=== PATIENT | female | born 1965 | race Caucasian/White ===

== ENCOUNTER 2020-05-13 06:57 | Outpatient (REF) | payer OTHER, SELFPAY | END 2020-05-13 06:58 | disposition home or self-care (01) | LOC: HO.LAB 06:57 | PROVIDERS: PCP Internal Medicine; Visit Provider Internal Medicine | DX: Z20.828 Contact with and (suspected) exposure to other viral communicable diseases (principal) | CPT/HCPCS: 87635 ==

== ENCOUNTER 2020-05-20 06:26 | Outpatient (REF) | payer OTHER, SELFPAY ==
[2020-05-20 07:43] LABS: MANUAL DIFF FLAG NO
[2020-05-20 07:52] LABS: Basophils Absolute Auto 0.1 X10*3/uL (0.0-0.2); Basophils Percent Auto 1.1 % (0-2); Eosinophils Absolute Auto 0.2 X10*3/uL (0.0-0.4); Eosinophils Percent Auto 2.7 % (0-4); Hematocrit 43.8 % (37-47); Hemoglobin 14.3 g/dl (12.0-16.0); Imm Gran Abs Auto 0.01 X10*3/uL (0.00-0.03); Imm Gran Pct Auto 0.2 % (0.0-0.4); Lymphocytes Absolute Auto 1.8 X10*3/uL (1.2-4.9); Lymphocytes Percent Auto 32.5 % (20-40); Mean Corpuscular HGB Conc 32.6 g/dl (31.0-35.0); Mean Corpuscular Hemoglobin 29.1 pg (27.0-33.0); Mean Corpuscular Volume 89.2 fL (80-98); Mean Platelet Volume 10.9 fL (9.4-12.3); Monocytes Absolute Auto 0.6 X10*3/uL (0.1-1.2); Monocytes Percent Auto 11.3 % (2-11); Neutrophils Absolute Auto 2.9 X10*3/uL (2.0-8.3); Neutrophils Percent Auto 52.2 % (45-73); Platelet Count 319 X10*3/uL (160-400); Red Blood Count 4.91 X10*6/uL (4.20-5.50); Red Cell Distribution Width 13.4 % (11.0-16.0); White Blood Count 5.6 X10*3/uL (4.8-10.8)
[2020-05-20 08:19] LABS: Alanine Aminotransferase 40 U/L (0-31); Albumin Level 4.5 g/dL (3.5-5.0); Alkaline Phosphatase 89 U/L (39-117); Anion Gap 14 (12-20); Aspartate Amino Transferase 32 U/L (5-31); Bilirubin Total 0.5 mg/dL (0.0-1.0); Blood Urea Nitrogen 16 mg/dL (9-16); Calcium 9.5 mg/dL (8.4-10.2); Carbon Dioxide 29 mmol/L (22-29); Chloride 104 mmol/L (96-108); Cholesterol 223 mg/dL; Estimated Glomerular Filt Rate > 60; Glucose Fasting 102 mg/dL (60-99); HDL Cholesterol 46 mg/dL; LDL Cholesterol Calculated 135 mg/dl; Potassium 4.6 mmol/l (3.3-5.1); Sodium 142 mmol/L (135-145); Total Protein 7.3 g/dL (6.5-8.0); Triglycerides 210 mg/dL
[2020-05-20 08:40] LABS: Thyroid Stimulating Hormone 1.19 mIU/mL (0.32-4.0); Vitamin D 25-OH Total 37.5 ng/mL (>30)
== END 2020-05-20 06:27 | disposition home or self-care (01) ==
LOC: HO.LAB 06:26
PROVIDERS: PCP Internal Medicine; Visit Provider Internal Medicine
DX: Z00.01 Encounter for general adult medical examination with abnormal findings (principal); E66.09 Other obesity due to excess calories; Z68.36 Body mass index [BMI] 36.0-36.9, adult
CPT/HCPCS: 36415; 80053; 80061; 82306; 84443; 85025

== ENCOUNTER → 2020-05-31 11:19 | Outpatient (BNVA) | payer OTHER, SELFPAY | PROVIDERS: Visit Provider Obstetrics & Gynecology | DX: Z76.89 Persons encountering health services in other specified circumstances (principal) ==

== ENCOUNTER 2020-06-01 09:36 | Outpatient (REF) | payer OTHER, SELFPAY ==
[2020-06-04 07:48] LABS: HPV mRNA E6/E7 Not Detected (Not Detected)
== END 2020-06-01 09:37 | disposition home or self-care (01) ==
LOC: HO.LAB 09:36
PROVIDERS: Visit Provider Obstetrics & Gynecology
DX: Z12.4 Encounter for screening for malignant neoplasm of cervix (principal)
CPT/HCPCS: 87624; 87625; 88142

== ENCOUNTER 2020-06-15 10:26 | Outpatient (REF) | payer OTHER, SELFPAY ==
--- NOTE | 2020-06-15 10:31 | US_ITS ---
EXAMINATION: PELVIC ULTRASOUND CLINICAL INFORMATION: Postmenopausal bleeding COMPARISON: None TECHNIQUE: Transabdominal and transvaginal pelvic ultrasound was performed. Transvaginal exam was performed for better visualization of the uterus and ovaries. FINDINGS: The uterus is anteverted and measures 6.8 x 2.2 x 3.9 cm in dimension. There is a 0.8 x 0.7 x 1.2 cm hypoechoic lesion in the posterior uterine body suggestive of a fibroid. No other focal uterine lesion is seen. Endometrial thickness is normal estimated at 0.2 cm. There are nabothian cysts in the cervix. The ovaries are normal-appearing. The right ovary measures 2.3 x 1.2 x 1.4 cm and the left ovary measures 1.6 x 1.1 x 1.3 cm. There is no fluid in the pelvis. US/US transvaginal IMPRESSION: Small uterine fibroid. Normal thickness endometrium. Normal-appearing ovaries.
--- NOTE | 2020-06-15 10:31 | US_ITS ---
EXAMINATION: PELVIC ULTRASOUND CLINICAL INFORMATION: Postmenopausal bleeding COMPARISON: None TECHNIQUE: Transabdominal and transvaginal pelvic ultrasound was performed. Transvaginal exam was performed for better visualization of the uterus and ovaries. FINDINGS: The uterus is anteverted and measures 6.8 x 2.2 x 3.9 cm in dimension. There is a 0.8 x 0.7 x 1.2 cm hypoechoic lesion in the posterior uterine body suggestive of a fibroid. No other focal uterine lesion is seen. Endometrial thickness is normal estimated at 0.2 cm. There are nabothian cysts in the cervix. The ovaries are normal-appearing. The right ovary measures 2.3 x 1.2 x 1.4 cm and the left ovary measures 1.6 x 1.1 x 1.3 cm. There is no fluid in the pelvis. US/US pelvic limited IMPRESSION: Small uterine fibroid. Normal thickness endometrium. Normal-appearing ovaries.
== END 2020-06-15 10:27 | disposition home or self-care (01) ==
LOC: HO.US 10:26
PROVIDERS: Visit Provider Obstetrics & Gynecology
DX: N95.0 Postmenopausal bleeding (principal)
CPT/HCPCS: 76830; 76857

== ENCOUNTER → 2020-06-29 10:39 | Outpatient (BNVA) | payer OTHER, SELFPAY | PROVIDERS: Visit Provider Obstetrics & Gynecology | DX: Z76.89 Persons encountering health services in other specified circumstances (principal) ==

== ENCOUNTER 2020-08-05 14:02 | Outpatient (REF) | payer OTHER, SELFPAY ==
--- NOTE | 2020-08-05 14:05 | MM_ITS ---
EXAMINATION: MM SCREENING DIGITAL BREAST TOMOSYNTHESIS, BILATERAL CLINICAL INFORMATION: Screening. Asymptomatic. The lifetime risk of breast cancer based on the Tyrer-Cuzick Model is 6%. COMPARISON: Mammography: 12/24/2015, 04/22/2014 TECHNIQUE: Digital breast tomosynthesis is performed in both the craniocaudal and mediolateral oblique views along with computer-aided detection (CAD). Synthesized 2D images are generated from the tomosynthesis. Additional bilateral CC and additional bilateral MLO views are provided. FINDINGS: The breasts are almost entirely fatty (ACR BI-RADS breast composition Category a). There are no significant masses, abnormal calcifications, or other abnormalities. Background stromal densities are similar to prior study. There is no developing density or interval mass or architectural abnormality or abnormal calcifications. The axilla and skin contours are unremarkable. No significant changes. MM/MM tomosynthesis screening BI IMPRESSION: No mammographic evidence of malignancy. ASSESSMENT: BI-RADS 1: Negative RECOMMENDATION: Routine annual mammography screening. This patient's information was entered into a reminder system with a target due date for their next mammogram.
== END 2020-08-05 14:03 | disposition home or self-care (01) ==
LOC: HO.MAMMO 14:02
PROVIDERS: PCP Internal Medicine; Visit Provider Internal Medicine
DX: Z12.31 Encounter for screening mammogram for malignant neoplasm of breast (principal)
CPT/HCPCS: 77063; 77067

== ENCOUNTER 2021-02-19 07:18 | Outpatient (REF) | payer OTHER, SELFPAY ==
[2021-02-19 08:41] LABS: Alanine Aminotransferase 23 U/L (0-31); Albumin Level 4.3 g/dL (3.5-5.0); Alkaline Phosphatase 87 U/L (39-117); Aspartate Amino Transferase 25 U/L (5-31); Bilirubin Direct 0.2 mg/dL (0.0-0.5); Bilirubin Total 0.5 mg/dL (0.0-1.0); Glucose Fasting 106 mg/dL (60-99); Total Protein 7.3 g/dL (6.5-8.0)
== END 2021-02-19 07:19 | disposition home or self-care (01) ==
LOC: HO.LAB 07:18
PROVIDERS: PCP Internal Medicine; Visit Provider Internal Medicine
DX: R73.01 Impaired fasting glucose (principal); R79.89 Other specified abnormal findings of blood chemistry
CPT/HCPCS: 36415; 80076; 82947

== ENCOUNTER 2021-08-23 09:50 | Outpatient (REF) | payer OTHER, SELFPAY ==
[2021-08-23 10:50] LABS: Estimated Average Glucose 114 mg/dL; Hemoglobin A1c % 5.6 %
[2021-08-23 10:58] LABS: Alanine Aminotransferase 25 U/L (0-31); Albumin Level 4.6 g/dL (3.5-5.0); Alkaline Phosphatase 83 U/L (39-117); Anion Gap 14 (12-20); Aspartate Amino Transferase 26 U/L (5-31); Bilirubin Total 0.4 mg/dL (0.0-1.0); Blood Urea Nitrogen 15 mg/dL (9-16); Calcium 10.3 mg/dL (8.4-10.2); Carbon Dioxide 28 mmol/L (22-29); Chloride 104 mmol/L (96-108); Estimated Glomerular Filt Rate > 60; Glucose Random 101 mg/dL (60-115); Potassium 4.5 mmol/L (3.3-5.1); Sodium 141 mmol/L (135-145); Total Protein 7.8 g/dL (6.5-8.0)
[2021-08-24 14:27] LABS: LDL Cholesterol Direct 186 mg/dL (<100)
[2021-08-27 14:41] LABS: Vitamin D 25-OH, D2 <4 ng/mL; Vitamin D 25-OH, D3 38 ng/mL; Vitamin D 25-OH, Total 38 ng/mL (30-100)
== END 2021-08-23 09:51 | disposition home or self-care (01) ==
LOC: HO.LAB 09:50
PROVIDERS: PCP Internal Medicine; Visit Provider Internal Medicine
DX: Z00.01 Encounter for general adult medical examination with abnormal findings (principal); E66.09 Other obesity due to excess calories; R73.01 Impaired fasting glucose
CPT/HCPCS: 36415; 80053; 82306; 83036; 83721

== ENCOUNTER 2021-09-06 08:22 | Outpatient (REF) | payer OTHER, SELFPAY ==
--- NOTE | ~2021-09-06 | MM_ITS ---
EXAMINATION: MM SCREENING DIGITAL BREAST TOMOSYNTHESIS, BILATERAL CLINICAL INFORMATION: Screening. Asymptomatic. The lifetime risk of breast cancer based on the Tyrer-Cuzick Model is 9%. COMPARISON: Mammography 08/05/2020; outside mammography 04/12/2019 ([place]); and mammography 12/24/2015. TECHNIQUE: Digital breast tomosynthesis is performed in both the craniocaudal and mediolateral oblique views along with computer-aided detection (CAD). Synthesized 2D images are generated from the tomosynthesis. FINDINGS: The breasts are almost entirely fatty (ACR BI-RADS breast composition Category a). There is no interval mass or architectural abnormality or developing density. Background stromal markings are stable. No abnormal calcifications. The axilla and skin contours are unremarkable. No significant changes. MM/MM tomosynthesis screening BI IMPRESSION: No mammographic evidence of malignancy. ASSESSMENT: BI-RADS 1: Negative RECOMMENDATION: Routine annual mammography screening. This patient's information was entered into a reminder system with a target due date for their next mammogram.
== END 2021-09-06 08:23 | disposition home or self-care (01) ==
LOC: HO.MAMMO 08:22
PROVIDERS: PCP Internal Medicine; Visit Provider Internal Medicine
DX: Z12.31 Encounter for screening mammogram for malignant neoplasm of breast (principal)
CPT/HCPCS: 77063; 77067

== ENCOUNTER 2021-10-21 06:09 | Outpatient (REF) | payer OTHER, SELFPAY ==
[2021-10-21 07:24] LABS: Estimated Average Glucose 117 mg/dL; Hemoglobin A1C 136.8872 umol/L; Hemoglobin A1c % 5.7 %
[2021-10-21 07:45] LABS: Alanine Aminotransferase 32 U/L (0-31); Albumin Level 4.3 g/dL (3.5-5.0); Aspartate Amino Transferase 28 U/L (5-31); Bilirubin Direct 0.2 mg/dL (0.0-0.5); Bilirubin Total 0.3 mg/dL (0.0-1.0); Cholesterol 136 mg/dL; HDL Cholesterol 35 mg/dL; LDL Cholesterol Calculated 82 mg/dl; Total Protein 7.2 g/dL (6.5-8.0); Triglycerides 98 mg/dL
[2021-10-21 07:54] LABS: Alkaline Phosphatase 86 U/L (39-117)
== END 2021-10-21 06:10 | disposition home or self-care (01) ==
LOC: HO.LAB 06:09
PROVIDERS: PCP Internal Medicine; Visit Provider Internal Medicine
DX: E78.9 Disorder of lipoprotein metabolism, unspecified (principal); R73.01 Impaired fasting glucose
CPT/HCPCS: 36415; 80061; 80076; 83036

== ENCOUNTER 2022-04-05 13:56 | Outpatient (REF) | payer OTHER, SELFPAY ==
[2022-04-07 12:46] LABS: Anti DNA DS Antibody <1 IU/mL
[2022-04-07 23:57] LABS: Anti Nuclear Antibody Screen NEGATIVE (NEGATIVE)
== END 2022-04-05 13:57 | disposition home or self-care (01) ==
LOC: HO.LAB 13:56
PROVIDERS: PCP Internal Medicine; Visit Provider Physician Assistant Medical
DX: L71.8 Other rosacea (principal)
CPT/HCPCS: 36415; 86038; 86039; 86225

== ENCOUNTER → 2022-08-17 14:01 | Outpatient (BNVA) | payer OTHER, SELFPAY | PROVIDERS: PCP Internal Medicine; Visit Provider Physician Assistant Surgical | DX: E66.9 Obesity, unspecified (principal) ==

== ENCOUNTER 2022-08-21 06:02 | Outpatient (REF) | payer OTHER, SELFPAY ==
[2022-08-21 06:23] LABS: MANUAL DIFF FLAG NO
[2022-08-21 08:26] LABS: Estimated Average Glucose 114 mg/dL; Hemoglobin A1c % 5.6 %
[2022-08-21 08:29] LABS: Basophils Absolute Auto 0.1 X10*3/uL (0.0-0.2); Basophils Percent Auto 1.2 % (0-2); Eosinophils Absolute Auto 0.1 X10*3/uL (0.0-0.4); Hematocrit 45.4 % (37.0-47.0); Hemoglobin 14.9 g/dl (12.0-16.0); Imm Gran Abs Auto 0.01 X10*3/uL (0.00-0.03); Imm Gran Pct Auto 0.2 % (0.0-0.4); Lymphocytes Absolute Auto 1.3 X10*3/uL (1.2-4.9); Lymphocytes Percent Auto 24.8 % (20-40); Mean Corpuscular HGB Conc 32.8 g/dl (31.0-35.0); Mean Corpuscular Hemoglobin 28.5 pg (27.0-33.0); Monocytes Absolute Auto 0.5 X10*3/uL (0.1-1.2); Monocytes Percent Auto 9.6 % (2-11); Neutrophils Absolute Auto 3.2 x10*3/uL (2.0-8.3); Neutrophils Percent Auto 62.2 % (45-73); Platelet Count 334 X10*3/uL (160-400); Red Blood Count 5.22 X10*6/uL (4.20-5.50); Red Cell Distribution Width 13.5 % (11.0-16.0); White Blood Count 5.1 X10*3/uL (4.8-10.8)
[2022-08-21 08:56] LABS: Alanine Aminotransferase 24 U/L (0-31); Albumin Level 4.7 g/dL (3.5-5.0); Alkaline Phosphatase 90 U/L (39-117); Anion Gap 17 (12-20); Aspartate Amino Transferase 32 U/L (5-31); Bilirubin Total 0.5 mg/dL (0.0-1.0); Blood Urea Nitrogen 18 mg/dL (9-16); C Reactive Protein 0.45 mg/dL (< or = 0.50); Calcium 9.7 mg/dL (8.4-10.2); Carbon Dioxide 23 mmol/L (22-29); Chloride 104 mmol/L (96-108); Cholesterol 252 mg/dL; Estimated Glomerular Filt Rate > 60; Glucose Fasting 98 mg/dL (60-99); Glucose Random 97 mg/dL (60-115); HDL Cholesterol 50 mg/dL; Iron 100 mcg/dL (30-160); LDL Cholesterol Calculated 182 mg/dl; Percent Iron Saturation 31 % (15-50); Potassium 3.8 mmol/L (3.3-5.1); Sodium 140 mmol/L (135-145); Total Iron Binding Capacity 318 mcg/dL (228-428); Total Protein 7.9 g/dL (6.5-8.0); Triglycerides 102 mg/dL; Unsaturated Iron Binding 218 ug/dL
[2022-08-21 08:57] LABS: TSH reflex Free T4 1.11 uIU/mL (0.32-4.0)
[2022-08-21 09:00] LABS: Ferritin 175 ng/mL (10-250); Insulin 9 uU/mL (2-29); Vitamin D 25-OH Total 32.7 ng/mL (>30)
[2022-08-21 09:13] LABS: Folate 17.4 ng/mL (> or = 4.0); Vitamin B12 610 pg/mL (200-900)
[2022-08-22 15:24] LABS: Calcium (PTHI) 9.8 mg/dL (8.6-10.4); PTHI 72 pg/mL (16-77)
[2022-08-23 19:19] LABS: Zinc 84 mcg/dL (60-130)
[2022-08-24 17:08] LABS: Vitamin D 25-OH, D2 <4 ng/mL; Vitamin D 25-OH, D3 34 ng/mL; Vitamin D 25-OH, Total 34 ng/mL (30-100)
[2022-08-25 00:14] LABS: Vitamin A 56 mcg/dL (38-98)
[2022-08-25 13:38] LABS: Vitamin B1 12 nmol/L (8-30)
== END 2022-08-21 06:03 | disposition home or self-care (01) ==
LOC: HO.LAB 06:02
PROVIDERS: Absent Provider Internal Medicine; PCP Internal Medicine; Visit Provider Physician Assistant Surgical
DX: E78.9 Disorder of lipoprotein metabolism, unspecified (principal); E66.09 Other obesity due to excess calories; R73.01 Impaired fasting glucose; L90.0 Lichen sclerosus et atrophicus; E55.9 Vitamin D deficiency, unspecified
CPT/HCPCS: 36415; 80053; 80061; 82306; 82607; 82728; 82746; 83036; 83525; 83540; 83970; 84425; 84443; 84590; 84630; 85025; 86140

== ENCOUNTER → 2022-09-12 09:23 | Outpatient (BNVA) | payer OTHER, SELFPAY | PROVIDERS: PCP Internal Medicine; Visit Provider Physician Assistant | DX: Z13.89 Encounter for screening for other disorder (principal) ==

== ENCOUNTER 2022-09-13 07:17 | Outpatient (REF) | payer OTHER, SELFPAY ==
--- NOTE | ~2022-09-13 | MM_ITS ---
EXAMINATION: MM SCREENING DIGITAL BREAST TOMOSYNTHESIS, BILATERAL CLINICAL INFORMATION: Screening. Asymptomatic. The lifetime risk of breast cancer based on the Tyrer-Cuzick Model is 10.4%. COMPARISON: Mammography: September 06, 2021 and studies dating back to December 24, 2015 TECHNIQUE: Digital breast tomosynthesis is performed in both the craniocaudal and mediolateral oblique views along with computer-aided detection (CAD). Synthesized 2D images are generated from the tomosynthesis. FINDINGS: The breasts are almost entirely fatty (ACR BI-RADS breast composition Category a). There are no significant masses, abnormal calcifications, or other abnormalities. MM/MM tomosynthesis screening BI IMPRESSION: No significant changes from prior exam. ASSESSMENT: BI-RADS 1: Negative RECOMMENDATION: Routine annual mammography screening. This patient's information was entered into a reminder system with a target due date for their next mammogram.
--- NOTE | ~2022-09-13 | MM_ITS ---
EXAMINATION: BONE DENSITOMETRY CLINICAL INDICATION: Asymptomatic menopausal state. COMPARISON: Baseline BD dated 12/24/2015. TECHNIQUE: Using a [employer] DXA System (software version: 13.1) manufactured by [employer], dual-energy x-ray absorptiometry was performed of the lumbar spine and left hip. The images are of good technical quality. Summary results are attached. FINDINGS: AP SPINE L1-L4: Current: BMD 0.728 g/cm2, Z-score -3.0, T-score -3.8, osteoporosis, 21.9% decrease from baseline (<5% change is not significant). Baseline: BMD 0.932 g/cm2. LEFT FEMUR, NECK: Current: BMD 0.759 g/cm2, Z-score -1.0, T-score -2.0, osteopenia. Baseline: BMD 0.796 g/cm2. LEFT FEMUR, TOTAL: Current: BMD 0.862 g/cm2, Z-score -0.5, T-score -1.2, osteopenia, 3.3% decrease from baseline (<5% change is not significant). Baseline: BMD 0.891 g/cm2. IDENTIFIED RISK FACTORS: Osteoporosis. Menopause. HISTORY OF FRACTURE: None listed. MEDICATIONS: Calcium supplement or multivitamin. Vitamin D. MM/XR DEXA axial skeleton IMPRESSION: 1. DIAGNOSIS: Osteoporosis based on the lowest T-score value of -3.8 in the lumbar spine applying World Health Organization criteria. 2. 10-YEAR FRACTURE RISK PREDICTION, FRAX: According to the guidelines, FRAX calculation should only be performed on patients in the osteopenia bone density category. Therefore, FRAX was not performed on this patient.? 3. Treatment Recommendations: NOF guidelines recommend consideration for treatment in postmenopausal women and men age 50 and older presenting with the following: -A hip or vertebral (clinical or morphometric) fracture. -T-score less than or equal to -2.5 at the femoral neck or spine after appropriate evaluation to exclude secondary causes. -Low bone mass at the hip or spine and a 10-year fracture probability by FRAX of greater than or equal to 3% for hip fracture or greater than or equal to 20% for major osteoporotic fracture based on the [place] adapted WHO algorithm. 4. Other Recommendations: All treatment decisions require clinical judgment and consideration of individual patient factors, including patient preferences, comorbidities, previous drug use, risk factors not captured in the FRAX model (e.g. frailty, falls, vitamin D deficiency, increased bone turnover, interval significant decline in bone density) and possible under or overestimation of fracture risk by FRAX. Additional medical evaluation for secondary cause of low bone mineral density may be appropriate. FUTURE SCAN RECOMMENDATION: People with diagnosed cases of osteoporosis or at high risk for fracture should have regular bone mineral density tests. For patients eligible for Medicare, routine testing is allowed once every 2 years. The testing frequency can be increased to one year for patients who have rapidly progressing disease, those who are receiving or discontinuing medical therapy to restore bone mass, or have additional risk factors.
== END 2022-09-13 07:18 | disposition home or self-care (01) ==
LOC: HO.MAMMO 07:17
PROVIDERS: PCP Internal Medicine; Visit Provider Internal Medicine
DX: Z12.31 Encounter for screening mammogram for malignant neoplasm of breast (principal); Z13.820 Encounter for screening for osteoporosis; Z78.0 Asymptomatic menopausal state; Z82.62 Family history of osteoporosis
CPT/HCPCS: 77063; 77067; 77080

== ENCOUNTER → 2022-09-18 14:03 | Outpatient (BNVA) | payer OTHER, SELFPAY | PROVIDERS: PCP Internal Medicine; Visit Provider Dietitian, Registered | DX: E66.9 Obesity, unspecified (principal) | CPT/HCPCS: 97802 ==

== ENCOUNTER → 2022-10-05 14:29 | Outpatient (BNVA) | payer OTHER, SELFPAY | PROVIDERS: PCP Internal Medicine; Visit Provider Internal Medicine Endocrinology, Diabetes & Metabolism | DX: Z13.89 Encounter for screening for other disorder (principal) ==

== ENCOUNTER 2022-10-06 06:12 | Outpatient (REF) | payer OTHER, SELFPAY ==
[2022-10-06 08:06] LABS: Phosphorus 3.3 mg/dL (2.7-4.5)
== END 2022-10-06 06:13 | disposition home or self-care (01) ==
LOC: HO.LAB 06:12
PROVIDERS: PCP Internal Medicine; Visit Provider Internal Medicine Endocrinology, Diabetes & Metabolism
DX: M81.0 Age-related osteoporosis without current pathological fracture (principal)
CPT/HCPCS: 36415; 84100

== ENCOUNTER → 2022-10-10 08:20 | Outpatient (BNVA) | payer OTHER, SELFPAY | PROVIDERS: PCP Internal Medicine; Visit Provider Physician Assistant Surgical | DX: Z13.89 Encounter for screening for other disorder (principal) ==

== ENCOUNTER → 2022-10-16 14:27 | Outpatient (BNVA) | payer OTHER, SELFPAY | PROVIDERS: PCP Internal Medicine; Visit Provider Physician Assistant Surgical | DX: Z13.89 Encounter for screening for other disorder (principal) ==

== ENCOUNTER → 2022-12-07 07:29 | Outpatient (BNVA) | payer OTHER, SELFPAY | PROVIDERS: PCP Internal Medicine; Referring Provider Internal Medicine; Visit Provider Physician Assistant ==

== ENCOUNTER → 2022-12-21 08:26 | Outpatient (BNVA) | payer OTHER, SELFPAY | PROVIDERS: PCP Internal Medicine; Visit Provider Physician Assistant Surgical ==

== ENCOUNTER 2023-01-15 08:27 | Outpatient (REF) | payer OTHER, SELFPAY ==
[2023-01-15 11:13] LABS: Creatinine, 24Hr Urine 0.7 G/Day (1.0-2.0); Total Volume 24 Hour Urine 2650 mL
[2023-01-17 17:47] LABS: Calcium, 24 Hr Urine 40 mg/24 h; Calcium/Creatinine Ratio 52 mg/g creat (30-275); Creatinine 24Hr Urine 0.77 g/24 h (0.50-2.15)
== END 2023-01-15 08:28 | disposition home or self-care (01) ==
LOC: HO.LNP 08:27
PROVIDERS: Visit Provider Internal Medicine Endocrinology, Diabetes & Metabolism
DX: M81.0 Age-related osteoporosis without current pathological fracture (principal)
CPT/HCPCS: 82340; 82570

== ENCOUNTER 2023-01-16 06:01 | Outpatient (REF) | payer OTHER, SELFPAY ==
[2023-01-16 06:16] LABS: MANUAL DIFF FLAG NO
[2023-01-16 07:32] LABS: Basophils Absolute Auto 0.1 X10*3/uL (0.0-0.2); Basophils Percent Auto 1.2 % (0-2); Eosinophils Absolute Auto 0.1 X10*3/uL (0.0-0.4); Eosinophils Percent Auto 2.2 % (0-4); Hematocrit 46.2 % (37.0-47.0); Hemoglobin 15.2 g/dl (12.0-16.0); Imm Gran Abs Auto 0.01 X10*3/uL (0.00-0.03); Imm Gran Pct Auto 0.2 % (0.0-0.4); Lymphocytes Absolute Auto 1.8 X10*3/uL (1.2-4.9); Lymphocytes Percent Auto 29.8 % (20-40); Mean Corpuscular HGB Conc 32.9 g/dl (31.0-35.0); Mean Corpuscular Hemoglobin 29.1 pg (27.0-33.0); Mean Corpuscular Volume 88.5 fL (80.0-98.0); Mean Platelet Volume 10.9 fL (9.4-12.3); Monocytes Absolute Auto 0.6 X10*3/uL (0.1-1.2); Monocytes Percent Auto 9.5 % (2-11); Neutrophils Absolute Auto 3.4 x10*3/uL (2.0-8.3); Neutrophils Percent Auto 57.1 % (45-73); Platelet Count 297 X10*3/uL (160-400); Red Blood Count 5.22 X10*6/uL (4.20-5.50); Red Cell Distribution Width 13.8 % (11.0-16.0); White Blood Count 5.9 X10*3/uL (4.8-10.8)
[2023-01-16 08:01] LABS: Alanine Aminotransferase 32 U/L (0-31); Albumin Level 4.4 g/dL (3.5-5.0); Alkaline Phosphatase 83 U/L (39-117); Anion Gap 14 (12-20); Aspartate Amino Transferase 30 U/L (5-31); Bilirubin Total 0.5 mg/dL (0.0-1.0); Blood Urea Nitrogen 22 mg/dL (9-16); Calcium 9.7 mg/dL (8.4-10.2); Carbon Dioxide 26 mmol/L (22-29); Chloride 105 mmol/L (96-108); Cholesterol 144 mg/dL; Estimated Glomerular Filt Rate > 60; Glucose Fasting 87 mg/dL (60-99); HDL Cholesterol 41 mg/dL; LDL Cholesterol Calculated 87 mg/dl; Potassium 4.3 mmol/L (3.3-5.1); Sodium 141 mmol/L (135-145); Total Protein 7.3 g/dL (6.5-8.0); Triglycerides 84 mg/dL
== END 2023-01-16 06:02 | disposition home or self-care (01) ==
LOC: HO.LAB 06:01
PROVIDERS: PCP Internal Medicine; Visit Provider Internal Medicine
DX: E78.9 Disorder of lipoprotein metabolism, unspecified (principal)
CPT/HCPCS: 36415; 80053; 80061; 85025

== ENCOUNTER → 2023-01-23 09:28 | Outpatient (BNVA) | payer OTHER, SELFPAY | PROVIDERS: Visit Provider Physician Assistant Surgical ==

== ENCOUNTER → 2023-02-08 14:26 | Outpatient (BNVA) | payer OTHER, SELFPAY | PROVIDERS: PCP Internal Medicine; Visit Provider Internal Medicine Endocrinology, Diabetes & Metabolism ==

== ENCOUNTER 2023-02-13 14:55 | Outpatient (AMB) | payer OTHER, SELFPAY ==
[2023-02-13 14:57] VITALS: BP 110/70; PULSE 76; O2SAT 98; BMI 30.5
--- NOTE | 2023-02-13 14:57 | A.OFFPC_ITS ---
Vital Signs 02/13/23 14:57 Height 5 ft Weight 156 lb 2 oz BMI 30.5 BP 110/70 Blood Pressure Location Rt brachial Position Sitting Pulse 76 Pulse Source Pulse Oximeter Pulse Oximetry (%) 98 Oxygen Delivery Method Room Air Intake Visit Reasons: 6 month follow up Allergies latex [LATEX] Allergy (Unknown, Verified 02/13/23 14:57) BREAK OUT - RASH Medication List - Last Reconciled 02/13/23 by Maycol Palacios MD betamethasone dipropionate 0.05% 1 appl topical BID bisacodyl (Dulcolax (bisacodyl)) 10 mg (2 x 5 mg) PO ONCE 1 day calcium carbonate (Antacid Calcium) 215 mg PO ONCE cholecalciferol (vitamin D3) 25 mcg PO DAILY polyethylene glycol 3350 (Miralax) 238 grams PO ONCE 1 day rosuvastatin (Crestor) 20 mg PO DAILY 90 days vitamin B complex (B Complex-Vitamin B12 tablet) 1 tab PO DAILY Tobacco use date assessed: 02/13/23 Dental Screening Dental Screen Date: 02/13/23 Did you have a dental visit in the last 12 months?: Yes Did you have a dental problem in the last 6 months where you did not have access to dental care?: No Was dental information given to patient?: No HPI 6 month follow up HPI Details Patient is 58-year-old female came in today for her six-month follow-up appointment Patient is on rosuvastatin 20 mg labs were done Aria of this year reviewed She had a bone density done her score is -3.8, patient says that she has a strong family history of osteoporosis her mother also was diagnosed at early age She is requesting medication which I have sent for her Fosamax once a week patient knows how to take it. Her mother is also taking that , she will get back to me if he has any problem the She has appointment for physical exam next year. FORMERLY [facility] Medical History Colonoscopy planned Impaired fasting blood sugar LFT elevation Surgical History History of tubal ligation Family History Maternal Aunt Melanoma Paternal Aunt Breast CA Mother Osteoporosis Father Heart disease Diabetes mellitus Dementia CVD (cardiovascular disease) Maternal Grandmother Osteoporosis Maternal Grandfather No problems noted. Paternal Grandmother No problems noted. Paternal Grandfather Cancer Son No problems noted. Daughter No problems noted. Social History Household Members: None Housing: House Alcohol intake: current Alcohol intake frequency: holidays/special occasions only Patient Tobacco Use Status: Never used Tobacco e-Cigarette/Vaping Use: Never Used service: No Current occupational status: employed Current occupation: [employer] Sexual orientation: Straight/Heterosexual Gender identity: Female Cognitive needs: No Hearing needs: No Vision needs: No Questionnaire Thrive Questionnaire Date Thrive assessed: 09/01/22 AUDIT C Alcohol Use Questionnaire (AUDIT-C) 1. How often do you have a drink containing alcohol?: Monthly or less 2. How many drinks containing alcohol do you have on a typical day when you are drinking?: 1 or 2 3. How often do you have six or more drinks on one occasion?: Never Total Score: 1 Score Reviewed/Action Taken: Yes JAKOB-7 AMB Questionnaire JAKOB-7 Date JAKOB - 7 assessed: 09/01/22 Source: Developed by Drs. Josep Mendes, Marlena Melchor, Jurgen Barnett and colleagues, with an educational bryan from [employer]. Review of Systems Const Denies chills and Denies fever(s) ENT Denies epistaxis and Denies nasal discharge Card Denies chest pain Resp Denies chest congestion, Denies cough and Denies hemoptysis GI Denies diarrhea and Denies nausea Skin/Breast Denies rash Neuro Reports no additional complaints Psych Reports no additional complaints Endo Reports no additional complaints Physical exam (Primary Care) Vital Signs: Last Vital Signs Pulse 76 02/13/23 14:57 BP 110/70 02/13/23 14:57 Pulse Ox 98 02/13/23 14:57 Oxygen Delivery Method Room Air 02/13/23 14:57 BMI result Body Mass Index 30.5 Tobacco/Smoking Status: Tobacco use Status Tobacco use date assessed 02/13/23 02/13/23 14:59 Patient Tobacco Use Status Never used Tobacco 02/13/23 14:59 e-Cigarette/Vaping Use Never Used 02/13/23 14:59 Thrive Assessment: Date of Thrive Assessment Date Thrive assessed 09/01/22 02/13/23 14:59 Const General: cooperative, comfortable and no acute distress Orientation/consciousness: patient oriented x3 HENMT Head: Yes normocephalic Eyes General: appearance normal, both eyes and all related structures Neck Neck: Yes supple Resp Effort & Inspection: normal respiratory effort, no cough and no stridor Cardio Rhythm: regular rhythm Heart sounds: S1 normal heart sound present and S2 normal heart sound present Skin General skin exam: turgor normal Neuro General: patient oriented x3, tone normal and moves all extremities Extrem Right lower extremity: no edema Left lower extremity: no edema Assessment and Plan Assessment & Plan (1) Lipid disorder: Code(s): E78.9 - Disorder of lipoprotein metabolism, unspecified (2) Osteoporosis: Code(s): M81.0 - Age-related osteoporosis without current pathological fracture (3) Impaired fasting blood sugar: Code(s): R73.01 - Impaired fasting glucose (4) Obesity due to excess calories: Code(s): E66.09 - Other obesity due to excess calories Plan Patient is 58-year-old female came in today for her six-month follow-up appointment Patient is on rosuvastatin 20 mg labs were done January of this year reviewed She had a bone density done her score is -3.8, patient says that she has a strong family history of osteoporosis her mother also was diagnosed at early age She is requesting medication which I have sent for her Fosamax once a week patient knows how to take it. Her mother is also taking that , she will get back to me if he has any problem the Diet-controlled for impaired fasting sugar She has appointment for physical exam next year. Medications: New alendronate (Fosamax) 70 mg PO QWEEK 13 tabs 0RF 90 days Coding Level of Care Code Est Pt Level 3 (04578) Diagnoses Lipid disorder E78.9 Osteoporosis M81.0 Impaired fasting blood sugar R73.01 Obesity due to excess calories E66.09
== END 2023-02-13 15:49 | disposition home or self-care (01) ==
PROVIDERS: Visit Provider Internal Medicine
DX: M81.0 Age-related osteoporosis without current pathological fracture (principal); R73.01 Impaired fasting glucose; E66.09 Other obesity due to excess calories; Z68.30 Body mass index [BMI] 30.0-30.9, adult; E78.9 Disorder of lipoprotein metabolism, unspecified
CPT/HCPCS: 99213

== ENCOUNTER 2023-03-14 12:45 | Outpatient (REF) | payer OTHER, SELFPAY ==
--- NOTE | ~2023-03-14 | XR_ITS ---
EXAMINATION: XR WRIST, RIGHT CLINICAL INFORMATION: Right wrist pain COMPARISON: None available. TECHNIQUE: PA, lateral, and oblique views of the right wrist. FINDINGS: The right wrist bones and soft tissues are normal. No fracture. Alignment is anatomic with normal joint spaces. No erosions or abnormal soft tissue calcifications. Incidental note of small lucencies with sclerotic margins in the third metacarpal head, indolent appearing. These likely reflect small cysts. XR/XR wrist RT min 3V IMPRESSION: No acute process. Other incidental findings as noted above.
== END 2023-03-14 12:46 | disposition home or self-care (01) ==
LOC: HO.HOSX 12:45
PROVIDERS: Visit Provider Orthopaedic Surgery
DX: M25.531 Pain in right wrist (principal)
CPT/HCPCS: 73110

== ENCOUNTER 2023-03-29 07:59 | Outpatient (AMB) | payer OTHER, SELFPAY ==
--- NOTE | 2023-03-29 08:00 | A.OFFVIS_ITS ---
Intake Vital Signs 03/29/23 08:01 Height 5 ft Weight 152 lb BMI 29.7 BP 120/74 Intake Visit Reasons: Annual Intake Note: The patient agreed to use of a medical research associate during this encounter. Scribed for CHANDRA Milian by Donna Solomon medical research associate, on 03/29/2023 at 8:10 am EST. Rail Splitter: Rail Splitter Present (Melonie) Allergies latex [LATEX] Allergy (Unknown, Verified 03/29/23 08:01) BREAK OUT - RASH HPI HPI Comments History of Present Illness Details She is a postmenopausal woman presenting for annual exam. Reports she has osteoporosis, is going to start Fosomax soon, and Lichen sclerosis and sees a cat cracker operator regularly. Reports itching of the skin, and under breast and Drilling Machine Runner prescribed her RX topical cream. Patient admits she tries to eat a healthy diet including Calcium and Vitamin D. Currently not sexually active. Denies vaginal itching and irritation. Denies family hx of colon and ovarian cancer. Last pap smear 05/31/20. Last mammogram 09/13/22. UTD on colonoscopy. [facility] Medical History Colonoscopy planned Impaired fasting blood sugar LFT elevation Surgical History History of tubal ligation Family History Maternal Aunt Melanoma Paternal Aunt Breast CA Mother Osteoporosis Father Heart disease Diabetes mellitus Dementia CVD (cardiovascular disease) Maternal Grandmother Osteoporosis Maternal Grandfather No problems noted. Paternal Grandmother No problems noted. Paternal Grandfather Cancer Son No problems noted. Daughter No problems noted. Social History Household Members: None Housing: House Alcohol intake: current Alcohol intake frequency: holidays/special occasions only Patient Tobacco Use Status: Never used Tobacco e-Cigarette/Vaping Use: Never Used service: No Current occupational status: employed Current occupation: [employer] Sexual orientation: Straight/Heterosexual Gender identity: Female Cognitive needs: No Hearing needs: No Vision needs: No Female Reproductive History Menstrual control method: permanent sterilization Permanent Sterilization: BTL Total pregnancies: 2 Full term: 2 Number of Living Children: 2 Date of last pap smear: 05/31/20 (neg pap and hpv) Date of Mammogram: 09/13/22 ([facility]) Physical Exam Vital Signs: Last Vital Signs BP 120/74 03/29/23 08:01 BMI result Body Mass Index 29.7 Const General: cooperative, healthy appearing, no acute distress, well developed and alert Orientation/consciousness: patient oriented x3 HEENT Head: Yes normal to inspection Eyes General: appearance normal, both eyes and all related structures Neck Neck: Yes normal visual inspection Thyroid: Thyroid normal Chest Chest palpation & inspection: normal inspection of the chest Breast/axilla inspection: normal inspection of the breasts (no puckering, dimpling, peau de orange, retraction, discharge, masses) Breast/axilla palpation: normal palpation of the breasts Resp Effort & Inspection: normal respiratory effort GI Inspection: Yes normal to inspection Palpation (GI): Soft to palpation (to palpation) Rectal Exam - Female: deferred Other: lichen hypopigmentation changes of labia majora; no thickening lesions or excoriations. General: Yes bladder normal to inspection External Female Exam: normal external appearance and normal appearance of the u rethra Speculum Exam - Vagina: normal appearance of the vagina, normal palpation and vagina atrophic Speculum Exam - Cervix: normal appearance of the cervix and normal palpation Bimanual exam- vagina & uterus: normal palpation and normal palpation Bimanual Exam- Adnexa, other: normal adnexae and no masses Skin General skin exam: no rashes or lesions noted Neuro General: patient oriented x3 Cognition (Neuro): normal cognition Extrem General: Yes normal to inspection Psych Attitude: cooperative Thought process: Normal thought process present Assessment & Plan Assessment & Plan (1) Encounter for well woman exam: Code(s): Z01.419 - Encounter for gynecological examination (general) (routine) without abnormal findings Plan: Discussed: Current recommendations for pap smears per ASCCP guidelines. Breast awareness and periodic self breast exams. Encouraged yearly mammograms. Maintaining a healthy lifestyle including a well balanced diet including Calcium and Vitamin D and routine exercise. Contact office with any PMB. All of her questions and concerns were addressed to the best of my ability RTO in 1 year for AG. (2) Lichen sclerosus: Code(s): L90.0 - Lichen sclerosus et atrophicus Plan: Advised to contact Drilling Machine Runner regarding Lichen changes of labia majora to prescribe Rx cream for that area specifically. (3) Osteoporosis: Code(s): M81.0 - Age-related osteoporosis without current pathological fracture Coding Level of Care Code Est Pt Prev Care 40-64y(53270) Diagnoses Encounter for well woman exam Z01.419 Lichen sclerosus L90.0 Osteoporosis M81.0
[2023-03-29 08:01] VITALS: BP 120/74; BMI 29.7
== END 2023-03-29 12:48 | disposition home or self-care (01) ==
LOC: HO.HWS 07:59
PROVIDERS: PCP Internal Medicine; Visit Provider Advanced Practice Midwife
DX: Z01.419 Encounter for gynecological examination (general) (routine) without abnormal findings (principal); L90.0 Lichen sclerosus et atrophicus; M81.0 Age-related osteoporosis without current pathological fracture
CPT/HCPCS: 99396

== ENCOUNTER → 2023-03-29 07:59 | Outpatient (BNVA) | payer OTHER, SELFPAY | PROVIDERS: PCP Internal Medicine; Visit Provider Advanced Practice Midwife ==

== ENCOUNTER 2023-04-30 07:11 | Day surgery (SDC) | payer OTHER, SELFPAY ==
[2023-04-26 14:49] VITALS: BMI 30.5
--- NOTE | 2023-04-27 10:22 | P.CONAN_ITS ---
Documented by User: Kae Cano NP 04/27/23 10:22 HPI - Anesthesia Eval Consult details Narrative: 58yo F for Colonoscopy PMFSH Active Problems Active Problems: All Active Problems (Updated 04/26/23 @ 14:46 by Alia Hernandez RN) History of adenomatous polyp of colon (Acute) Colon cancer screening (Acute) Osteoporosis (Acute) Family history of osteoporosis (Acute) Menopause (Acute) Vitamin D deficiency (Acute) Lichen sclerosus (Acute) Lipid disorder (Acute) Skin rash (Acute) Encounter for general adult medical examination with abnormal findings (Acute) Obesity due to excess calories (Acute) LFT elevation (Acute) Impaired fasting blood sugar (Acute) Past Medical History Medical History Lichen sclerosus Osteoporosis LFT elevation Impaired fasting blood sugar Colonoscopy planned Family History Family History Maternal Aunt Melanoma Paternal Aunt Breast CA Mother Osteoporosis Father Heart disease Diabetes mellitus Dementia CVD (cardiovascular disease) Maternal Grandmother Osteoporosis Maternal Grandfather No problems noted. Paternal Grandmother No problems noted. Paternal Grandfather Cancer Son No problems noted. Daughter No problems noted. Surgical History Surgical History H/O colonoscopy History of tubal ligation Social History Social History Household Members: None Housing: House Alcohol intake: current Alcohol intake frequency: holidays/special occasions only Patient Tobacco Use Status: Never used Tobacco e-Cigarette/Vaping Use: Never Used Use of substances other than those prescribed or required for medical reasons: No Are you DNR?: No Advance Directives: No Advance Directives Information Provided: Yes service: No Current occupational status: employed Current occupation: [employer] Sexual orientation: Straight/Heterosexual Gender identity: Female Cognitive needs: No Hearing needs: No Vision needs: No Meds Allergies Allergy/AdvReac Type Severity Reaction Status Date / Time latex [LATEX] Allergy Unknown BREAK OUT Verified 03/29/23 08:01 - RASH Home Medications Medication Instructions Recorded Confirmed Last Taken Type cholecalciferol (vitamin D3) 25 25 mcg PO DAILY 06/09/20 04/26/23 Unknown History mcg (1,000 unit) capsule betamethasone dipropionate 0.05 % 1 appl topical BID 08/17/22 04/26/23 Unknown History topical ointment vitamin B complex (B 1 tab PO DAILY 09/01/22 04/26/23 Unknown History Complex-Vitamin B12 tablet) calcium carbonate 215 mg calcium 215 mg PO DAILY 10/05/22 04/26/23 Unknown H istory (500 mg) chewable tablet (Antacid Calcium) Exam Exam Date and Time: April 27, 2023 1022 Height,Weight and Vital Signs: Height 5 ft Weight 70.76 kg Pertinent Lab Results Pertinent Lab Results: Laboratory Tests 01/16/23 06:13 WBC 5.9 Hgb 15.2 Hct 46.2 Plt Count 297 Sodium 141 Potassium 4.3 Chloride 105 Carbon Dioxide 26 BUN 22 H Creatinine 0.78 Assessment and Plan Assessment Anesthesia Assessment: Chart Reviewed Documented by User: Yumiko Piper MD 04/30/23 07:54 PMFSH Active Problems Active Problems: All Active Problems (Updated 04/30/23 @ 07:51 by Yumiko Piper MD) History of adenomatous polyp of colon (Acute) Colon cancer screening (Acute) Osteoporosis (Acute) Family history of osteoporosis (Acute) Menopause (Acute) Vitamin D deficiency (Acute) Lichen sclerosus (Acute) Lipid disorder (Acute) Skin rash (Acute) Encounter for general adult medical examination with abnormal findings (Acute) Obesity due to excess calories (Acute) LFT elevation (Acute) Impaired fasting blood sugar (Acute) Past Medical History Medical History Lichen sclerosus Osteoporosis LFT elevation Impaired fasting blood sugar Colonoscopy planned Family History Family History Maternal Aunt Melanoma Paternal Aunt Breast CA Mother Osteoporosis Father Heart disease Diabetes mellitus Dementia CVD (cardiovascular disease) Maternal Grandmother Osteoporosis Maternal Grandfather No problems noted. Paternal Grandmother No problems noted. Paternal Grandfather Cancer Son No problems noted. Daughter No problems noted. Surgical History Surgical History H/O colonoscopy History of tubal ligation Social History Social History Household Members: None Housing: House Alcohol intake: current Alcohol intake frequency: holidays/special occasions only Patient Tobacco Use Status: Never used Tobacco e-Cigarette/Vaping Use: Never Used Use of substances other than those prescribed or required for medical reasons: No Are you DNR?: No Advance Directives: No Advance Directives Information Provided: Yes service: No Current occupational status: employed Current occupation: [employer] Sexual orientation: Straight/Heterosexual Gender identity: Female Cognitive needs: No Hearing needs: No Vision needs: No Meds Allergies Allergy/AdvReac Type Severity Reaction Status Date / Time latex [LATEX] Allergy Unknown BREAK OUT Verified 03/29/23 08:01 - RASH Home Medications Medication Instructions Recorded Confirmed Last Taken Type cholecalciferol (vitamin D3) 25 25 mcg PO DAILY 06/09/20 04/26/23 Unknown History mcg (1,000 unit) capsule betamethasone dipropionate 0.05 % 1 appl topical BID 08/17/22 04/26/23 Unknown History topical ointment vitamin B complex (B 1 tab PO DAILY 09/01/22 04/26/23 Unknown History Complex-Vitamin B12 tablet) calcium carbonate 215 mg calcium 215 mg PO DAILY 10/05/22 04/26/23 Unknown History (500 mg) chewable tablet (Antacid Calcium) Documented by User: Lisa Nelson MD 04/30/23 08:48 PMFSH Past Medical History Medical History Lichen sclerosus Osteoporosis LFT elevation Impaired fasting blood sugar Colonoscopy planned Family History Family History Maternal Aunt Melanoma Paternal Aunt Breast CA Mother Osteoporosis Father Heart disease Diabetes mellitus Dementia CVD (cardiovascular disease) Maternal Grandmother Osteoporosis Maternal Grandfather No problems noted. Paternal Grandmother No problems noted. Paternal Grandfather Cancer Son No problems noted. Daughter No problems noted. Family history of problems with anesthesia: No Surgical History Surgical History H/O colonoscopy History of tubal ligation History of Problems with Anesthesia: Yes Social History Social History Household Members: None Housing: House Alcohol intake: current Alcohol intake frequency: holidays/special occasions only Patient Tobacco Use Status: Never used Tobacco e-Cigarette/Vaping Use: Never Used Use of substances other than those prescribed or required for medical reasons: No Are you DNR?: No Advance Directives: No Advance Directives Information Provided: Yes service: No Current occupational status: employed Current occupation: [employer] Sexual orientation: Straight/Heterosexual Gender identity: Female Cognitive needs: No Hearing needs: No Vision needs: No Meds Allergies Allergy/AdvReac Type Severity Reaction Status Date / Time latex [LATEX] Allergy Unknown BREAK OUT Verified 03/29/23 08:01 - RASH Home Medications Medication Instructions Recorded Confirmed Last Taken Type cholecalciferol (vitamin D3) 25 25 mcg PO DAILY 06/09/20 04/26/23 Unknown History mcg (1,000 unit) capsule betamethasone dipropionate 0.05 % 1 appl topical BID 08/17/22 04/26/23 Unknown History topical ointment vitamin B complex (B 1 tab PO DAILY 09/01/22 04/26/23 Unknown History Complex-Vitamin B12 tablet) calcium carbonate 215 mg calcium 215 mg PO DAILY 10/05/22 04/26/23 Unknown History (500 mg) chewable tablet (Antacid Calcium) Exam Airway Mallampati Class: II TM Dist: >3cm Neck ROM: Full Loose/Missing/Broken Teeth: No Heart: RRR Lungs: CTA Assessment and Plan Assessment Anesthesia Assessment: Anesthesia Plan Discussed Final Anesthetic Review Family History of Problems with Anesthesia: No History of Problems with Anesthesia: Yes NPO: Yes ASA Class: II Final Preanesthetic Review: Meds/Allgs Chart Reviewed and Consent Obtained/Reviewed Patient Risk: Low Procedure Risk: Low Anesthetic Plan Anesthetic Plan: MAC: Disposition: Standard PACU
[2023-04-30 07:30] VITALS: BP 122/74; PULSE 76; RESP 18; TEMP 36.6; O2SAT 97; BMI 28.3
--- NOTE | 2023-04-30 07:34 | MHC.SHP ---
Pre-Procedural Eval Section A Date of Service: 04/30/23 The patient is an INPATIENT: No The History & Physical has been completed within 30 days and I have reviewed it.: No Section B Chief Complaint: Surveillance for colon polyps Relevant Family History (Specify if Yes): No Relevant Social History: None Present Medications: see Short Stay Collaborative assessment Medical History: Significant History (Impaired fasting blood sugar LFT elevation) History of Previous Operations: Relevant previous surgery/procedure and date(s) (History of tubal ligation) Allergies: Allergies Allergy/AdvReac Type Severity Reaction Status Date / Time latex [LATEX] Allergy Unknown BREAK OUT Verified 03/29/23 08:01 - RASH Review of Systems Sugical H&P ROS: Negative: Constitution, Cardiovascular, Respiratory and Gastrointestinal Exam Surgical H&P Exam: Normal: Heart, Normal: Lungs, Normal: Extremities and Normal: Abdomen Plan Diagnosis/Plan: Unchanged I have reviewed the history and physical and performed a pertinent physical examination on my patient. No changes have occurred unless specified. Time Spent With Patient Time: Total time managing care of this patient today ____ minutes.
[2023-04-30] MEDS: Lactated Ringers 1,000 ML 100 ML IVCONT (08:05)
--- NOTE | 2023-04-30 08:26 | W.PM.OPN ---
Operative Note Operative Note Date of Service: 04/30/23 Narrative: COLONOSCOPY TILL CECUM Pre-op diagnosis: surveillance for colon polyps Post-op diagnosis:? diverticulosis, hemorrhoids Endoscopist:? Ronda Sorto MD Anesthesia:?MAC Consent: Indications for the procedure and potential complications of bleeding, perforation, reaction to medications and missed diagnosis were discussed with the patient and informed consent was obtained. Instrument: Olympus PCF H 190 L variable stiffness pediatric colonoscope Monitoring: Vital signs and clinical assessment, intermittent blood pressure monitoring, continuous EKG monitoring, Pulse oximetry and Carbon Dioxide monitoring were done throughout the procedure. Please see anesthesia flowsheet. Colon withdrawl time was 11 minutes. Procedure: The patient was placed in the left lateral decubitis position and pre-procedure medications were administered. After a digital rectal examination of the ano-rectum, the video colonoscope was inserted into the rectum and advanced through the colon to the cecum. The colonoscope was slowly withdrawn in a retrograde panoramic fashion and the colon mucosa was carefully examined including a retroflexed view of the rectum. Findings and interventions are described below. Procedure Difficulty: Without difficulty Findings: Terminal Ileum: Not evaluated Cecum: Normal Ascending Colon: Normal Transverse Colon: Normal Descending Colon: Normal Sigmoid Colon: Mild diverticulosis Rectum: Normal Ano-rectum: Small internal hemorrhoids Colon preparation: Excellent Impression and Post Procedure Diagnosis: Colonoscopy Findings: No polyps were detected Mild diverticulosis seen in the sigmoid colon Small hemorrhoids on retroflexed exam. Plan: Patient has an appointment on 05/16/23 in the [facility] with MIKE Martinez. Repeat Colonoscopy in 5 years due to a hx of adenomatous colon polyps. Above findings were reviewed with the patient and diverticulosis handout was given in the discharge area
[2023-04-30 08:56] VITALS: BP 98/45; PULSE 77; RESP 20; TEMP 37.1; O2SAT 99
[2023-04-30 09:11] VITALS: BP 111/78; PULSE 65; RESP 20; TEMP 37.1; O2SAT 99
== END 2023-04-30 09:31 | disposition home or self-care (01) ==
PROVIDERS: PCP Internal Medicine; Visit Provider Internal Medicine Gastroenterology
PROC: 0DJD8ZZ Inspection of Lower Intestinal Tract, Via Natural or Artificial Opening Endoscopic (ICD-10-PCS; CPT 45378; principal; 2023-04-30 08:30)
DX: Z12.11 Encounter for screening for malignant neoplasm of colon (principal); Z86.010 Personal history of colon polyps; K57.30 Diverticulosis of large intestine without perforation or abscess without bleeding; K64.8 Other hemorrhoids; R73.01 Impaired fasting glucose; R79.89 Other specified abnormal findings of blood chemistry; Z91.040 Latex allergy status
CPT/HCPCS: 45378

== ENCOUNTER → 2023-04-30 07:11 | Outpatient (BNV) | payer OTHER, SELFPAY | PROVIDERS: PCP Internal Medicine; Visit Provider Internal Medicine Gastroenterology | DX: Z12.11 Encounter for screening for malignant neoplasm of colon (principal); K57.30 Diverticulosis of large intestine without perforation or abscess without bleeding; K64.8 Other hemorrhoids | CPT/HCPCS: 45378 ==

== ENCOUNTER → 2023-05-28 08:30 | Outpatient (BNVA) | payer OTHER, SELFPAY | PROVIDERS: PCP Internal Medicine | DX: Z13.89 Encounter for screening for other disorder (principal) | CPT/HCPCS: 99213 ==

== ENCOUNTER 2023-06-04 14:18 | Outpatient (AMB) | payer OTHER, SELFPAY ==
--- NOTE | 2023-06-04 14:22 | A.OFFVIS_ITS ---
Intake Vital Signs 06/04/23 14:27 Height 5 ft Weight 145 lb BMI 28.3 Intake Visit Reasons: fc- Fx of right 5th digit Intake Note: This is a 58 year old female patient who presents for a fracture of her right 5th digit. This injury occurred last sunday while she was pushing a sterilizer door shut and her finger got caught. She reports minimal pain at this time unless she moves it. Allergies latex [LATEX] Allergy (Unknown, Verified 06/04/23 14:27) BREAK OUT - RASH Medication List - Last Reconciled 06/04/23 by Jeanette Blum RN alendronate (Fosamax) 70 mg PO QWEEK 90 days betamethasone dipropionate 0.05% 1 appl topical BID calcium carbonate (Antacid Calcium) 215 mg PO DAILY cholecalciferol (vitamin D3) 25 mcg PO DAILY ibuprofen 800 mg PO TID PRN rosuvastatin (Crestor) 20 mg PO DAILY 90 days vitamin B complex (B Complex-Vitamin B12 tablet) 1 tab PO DAILY HPI fc- Fx of right 5th digit HPI Details 58-year-old female who presents in the o ice today, as a new patient, for an evaluation of right hand pain. The patient presented to [facility] on 05/30/2023. She confirms the injury occurred last Sunday05/28/2023 when she was pushing a sterilizer door shut and her right little finger got caught. She confirms minimal pain at this time unless she moves it. She denies being prescribed antibiotics. She works at [employer] in the [employer]. [facility] Medical History Lichen sclerosus Osteoporosis LFT elevation Impaired fasting blood sugar Colonoscopy planned Surgical History H/O colonoscopy History of tubal ligation Family History Maternal Aunt Melanoma Paternal Aunt Breast CA Mother Osteoporosis Father Heart disease Diabetes mellitus Dementia CVD (cardiovascular disease) Maternal Grandmother Osteoporosis Maternal Grandfather No problems noted. Paternal Grandmother No problems noted. Paternal Grandfather Cancer Son No problems noted. Daughter No problems noted. Social History Household Members: None Housing: House Alcohol intake: current Alcohol intake frequency: holidays/special occasions only Patient Tobacco Use Status: Never used Tobacco e-Cigarette/Vaping Use: Never Used service: No Current occupational status: employed Current occupation: [employer] Sexual orientation: Straight/Heterosexual Gender identity: Female Cognitive needs: No Hearing needs: No Vision needs: No Review of Systems Const All systems reviewed & are unremarkable except as noted in HPI and below Physical Exam Vital Signs: BMI result Body Mass Index 28.3 Const General: cooperative and no acute distress Orientation/consciousness: patient oriented x3 Resp Effort & Inspection: normal respiratory effort and able to speak in complete sentences Cardio Peripheral pulses: Peripheral pulses 2+ throughout Skin General skin exam: no rashes or lesions noted Neuro General: patient oriented x3 Extrem Other: Right hand: Normal to inspection. No ecchymosis, erythema, or edema. Tenderness to palpation over the DIP of the little finger. Able to perform full finger flexion, extension, abduction, adduction, finger cross, okay sign, and thumbs up without deficit. Able to make a closed fist. Sensation intact. Capillary refill is brisk. Radial pulse intact. Assessment & Plan Assessment & Plan (1) Sprain of right little finger: Code(s): S63.616A - Unspecified sprain of right little finger, initial encounter Qualifiers: Encounter type: initial encounter Sprain of finger site: unspecified site Qualified Code(s): S63.616A - Unspecified sprain of right little finger, initial encounter Plan Ms. Terry is a 58-year-old female who presents in the office today, as a new patient, for an evaluation of right hand pain. The patient presented to [facility] on 05/30/2023. She confirms the injury occurred last Sunday05/28/2023 when she was pushing a sterilizer door shut and her right little finger got caught. She confirms minimal pain at this time unless she moves it. She denies being prescribed antibiotics. She works at [employer] in the [employer]. The patient will be placed in a mallet finger splint, off the shelf, while in the office today. She was educated when she is at home she is to come out of the splint to work on gentle ROM. She is only to wear the splint for protection for a week and then she was asked to discontinue the splint. Follow up will be PRN, or sooner if needed. X-rays of the right hand, obtained on 05/30/2023, revealed: Small ossific or calcific densities adjacent to the base of the distal phalanx and adjacent to the distal middle phalanx may represent small chip fractures. Patient Instructions: Scribed for Jennifer Soria PA-C by Kaleigh Soto infertility medical assistant, on 06/04/2023 at 2:19 pm, EST. Coding Level of Care Code New Pt Level 4 (65611) Diagnoses Sprain of right little finger, unspecified site of digit, initial encounter S63.616A Encounter type: initial encounter Sprain of finger site: unspecified site
[2023-06-04 14:27] VITALS: BMI 28.3
== END 2023-06-04 14:48 | disposition home or self-care (01) ==
PROVIDERS: PCP Internal Medicine; Visit Provider Physician Assistant
DX: S63.616A Unspecified sprain of right little finger, initial encounter (principal)
CPT/HCPCS: 99204

== ENCOUNTER → 2023-06-04 14:18 | Outpatient (BNVA) | payer OTHER, SELFPAY | PROVIDERS: PCP Internal Medicine; Visit Provider Physician Assistant | DX: S63.616A Unspecified sprain of right little finger, initial encounter (principal) | CPT/HCPCS: 99202 ==

== ENCOUNTER 2023-08-29 06:01 | Outpatient (REF) | payer OTHER, SELFPAY ==
[2023-08-29 06:22] LABS: MANUAL DIFF FLAG NO
[2023-08-29 07:57] LABS: Basophils Absolute Auto 0.1 X10*3/uL (0.0-0.2); Basophils Percent Auto 1.2 % (0-2); Eosinophils Absolute Auto 0.2 X10*3/uL (0.0-0.4); Eosinophils Percent Auto 3.6 % (0-4); Hematocrit 43.5 % (37.0-47.0); Hemoglobin 14.2 g/dl (12.0-16.0); Imm Gran Abs Auto 0.01 X10*3/uL (0.00-0.03); Imm Gran Pct Auto 0.2 % (0.0-0.4); Lymphocytes Absolute Auto 1.5 X10*3/uL (1.2-4.9); Lymphocytes Percent Auto 29.4 % (20-40); Mean Corpuscular HGB Conc 32.6 g/dl (31.0-35.0); Mean Corpuscular Hemoglobin 29.2 pg (27.0-33.0); Mean Corpuscular Volume 89.3 fL (80.0-98.0); Mean Platelet Volume 10.6 fL (9.4-12.3); Monocytes Absolute Auto 0.5 X10*3/uL (0.1-1.2); Monocytes Percent Auto 9.7 % (2-11); Neutrophils Absolute Auto 2.8 x10*3/uL (2.0-8.3); Neutrophils Percent Auto 55.9 % (45-73); Platelet Count 301 X10*3/uL (160-400); Red Blood Count 4.87 X10*6/uL (4.20-5.50); Red Cell Distribution Width 13.9 % (11.0-16.0)
[2023-08-29 08:28] LABS: Alanine Aminotransferase 26 U/L (0-31); Albumin Level 4.2 g/dL (3.5-5.0); Alkaline Phosphatase 73 U/L (39-117); Anion Gap 15 (12-20); Aspartate Amino Transferase 30 U/L (5-31); Bilirubin Total 0.4 mg/dL (0.0-1.0); Blood Urea Nitrogen 18 mg/dL (9-16); Calcium 9.6 mg/dL (8.4-10.2); Carbon Dioxide 26 mmol/L (22-29); Chloride 104 mmol/L (96-108); Cholesterol 149 mg/dL (<200); Estimated Glomerular Filt Rate > 60; Glucose Fasting 93 mg/dL (60-99); HDL Cholesterol 47 mg/dL (>40); LDL Cholesterol Calculated 86 mg/dL (<100); Sodium 141 mmol/L (135-145); Total Protein 7.4 g/dL (6.5-8.0); Triglycerides 84 mg/dL (<150)
[2023-08-29 08:29] LABS: Estimated Average Glucose 108 mg/dL; Hemoglobin A1c % 5.4 % (<6.0)
== END 2023-08-29 06:02 | disposition home or self-care (01) ==
LOC: HO.LAB 06:01
PROVIDERS: PCP Internal Medicine; Visit Provider Internal Medicine
DX: E78.9 Disorder of lipoprotein metabolism, unspecified (principal); R73.01 Impaired fasting glucose
CPT/HCPCS: 36415; 80053; 80061; 83036; 85025

== ENCOUNTER 2023-09-07 07:50 | Outpatient (AMB) | payer OTHER, SELFPAY ==
[2023-09-07 08:00] VITALS: BP 112/80; PULSE 62; O2SAT 95; BMI 29.3
--- NOTE | 2023-09-07 08:00 | MHC.PC.OV ---
Vital Signs 09/07/23 08:00 Height 5 ft Weight 150 lb 2 oz BMI 29.3 BP 112/80 Blood Pressure Location Lt brachial Position Sitting Pulse 62 Pulse Source Pulse Oximeter Pulse Oximetry (%) 95 Oxygen Delivery Method Room Air Intake Visit Reasons: PE Allergies latex [LATEX] Allergy (Unknown, Verified 09/07/23 08:01) BREAK OUT - RASH Tobacco use date assessed: 09/07/23 Dental Screening Dental Screen Date: 09/07/23 Did you have a dental visit in the last 12 months?: Yes Did you have a dental problem in the last 6 months where you did not have access to dental care?: No Was dental information given to patient?: Patient has dentist HPI PE HPI Details Patient is 58-year-old female came in today for physical examination Labs were done recently reviewed LDL is 83 fasting sugar is 108 Colonoscopy was May of 2023 Mammogram September of 2022 Bone density September of 2022 patient have osteoporosis with a score of-3.8, she was prescribed Fosamax but patient is not taking it She had a consultation with endocrinology Dr. Menjivar as well, patient says that she is reluctant to take the medication she is still thinking about it Lipid disorder: She has also stopped taking rosuvastatin she was on 20 mg We will repeat labs again in 6 months and then decide, patient says that she was having aching in her legs physical exam 1 year [facility] Medical History Lichen sclerosus Osteoporosis LFT elevation Impaired fasting blood sugar Colonoscopy planned Surgical History H/O colonoscopy History of tubal ligation Family History Maternal Aunt Melanoma Paternal Aunt Breast CA Mother Osteoporosis Father Heart disease Diabetes mellitus Dementia CVD (cardiovascular disease) Maternal Grandmother Osteoporosis Maternal Grandfather No problems noted. Paternal Grandmother No problems noted. Paternal Grandfather Cancer Son No problems noted. Daughter No problems noted. Social History Household Members: None Housing: House Alcohol intake: current Alcohol intake frequency: holidays/special occasions only Patient Tobacco Use Status: Never used Tobacco e-Cigarette/Vaping Use: Never Used service: No Current occupational status: employed Current occupation: [employer] Sexual orientation: Straight/Heterosexual Gender identity: Female Cognitive needs: No Hearing needs: No Vision needs: No Questionnaire PHQ-9 Over the last 2 weeks, how often have you been bothered by any of the following problems? 1. Little interest or pleasure in doing things: not at all 2. Feeling down, depressed, or hopeless: not at all 3. Trouble falling or staying asleep, or sleeping too much: not at all 4. Feeling tired or having little energy: not at all 5. Poor appetite or overeating: not at all 6. Feeling bad about yourself - or that you are a failure or have let yourself or your family down: not at all 7. Trouble concentrating on things, such as reading the newspaper or watching television: not at all 8. Moving or speaking so slowly that other people could have noticed. Or the opposite - being so fidgety or restless that you have been moving around a lot more than usual: not at all 9. Thoughts that you would be better off or of hurting yourself in some way: not at all Total score: 0 Depression Screening Interpretation: Negative Depression Screening Done: Yes 02577 - PHQ-9 Billing: Yes Source: Developed by Drs. Josep Mendes, Marlena Melchor, Jurgen Barnett and colleagues, with an educational bryan from [employer]. Thrive Questionnaire Date Thrive assessed: 09/07/23 I am a: Patient What is your living situation today?: I have a steady place to live Within the past 12 months, did the food you bought not last and you didn't have the money to get more?: Never true Within the past 12 months, did you worry whether your food would run out before you got money to buy more?: Never true Do you have trouble paying for medicines?: No Do you have trouble getting transportation to medical appointments?: No Do you have trouble paying your heating and electricity bill?: No Do you have trouble taking care of your child, family member or friend?: No Do you have trouble with day-to-day activities such as bathing, preparing meals, shopping, managing finances, etc.?: No Are you currently unemployed and looking for a job?: No Are you interested in more education?: No Please select the resources that you would like help with: None Currently or been in a relationship where the following occur: no concerns reported THRIVE Score: 0 AUDIT C Alcohol Use Questionnaire (AUDIT-C) 1. How often do you have a drink containing alcohol?: Monthly or less 2. How many drinks containing alcohol do you have on a typical day when you are drinking?: 1 or 2 3. How often do you have six or more drinks on one occasion?: Never Total Score: 1 Score Reviewed/Action Taken: Yes JAKOB-7 AMB Questionnaire JAKOB-7 Date JAKOB - 7 assessed: 09/07/23 Feeling nervous, anxious, or on edge: 0 = Not at all Not being able to stop or control worryin = Not at all Worrying too much about different things: 0 = Not at all Trouble relaxin = Not at all Being so restless that it is hard to sit still: 0 = Not at all Becoming easily annoyed or irritable: 0 = Not at all Feeling afraid as if something awful might happen: 0 = Not at all Total JAKOB-7 score (0-4 normal; 5-9 mild; 10-14 moderate; 15-21 severe): 0 Source: Developed by Drs. Josep Mendes, Marlena Melchor, Jurgen Barnett and colleagues, with an educational bryan from [employer]. JAKOB-7 Assessment Billing JAKOB-7 Assessment Tool: JAKOB-7 Assessment 67442 Review of Systems Const Denies chills, Denies fever(s) and Denies headache(s) Eyes Denies blurry vision ENT Denies headache(s), Denies nasal discharge, Denies nasal obstruction, Denies odynophagia and Denies sinus pain Card Denies chest pain at rest and Denies chest pain with activity Resp Denies cough and Denies hemoptysis GI Denies diarrhea, Denies odynophagia, Denies vomiting and Denies hematemesis Reports as per HPI Musc Denies abnormal gait Skin/Breast Reports as per HPI Neuro Denies Neuro-related abnormal movements, Denies Abnormal speech present, Denies abnormal gait, Denies headache(s) and Denies Sensory deficit (Neuro) Psych Denies mood swings and Denies paranoia Endo Reports as per HPI Timothy/Lymph Reports as per HPI Aller/Immun Reports as per HPI Physical exam (Primary Care) Tobacco/Smoking Status: Tobacco use Status Tobacco use date assessed 02/13/23 03/29/23 08:26 Patient Tobacco Use Status Never used Tobacco 04/30/23 08:53 e-Cigarette/Vaping Use Never Used 03/29/23 08:26 Depression Screening Interpretation: Negative Thrive Assessment: Date of Thrive Assessment Date Thrive assessed 09/01/22 03/29/23 08:26 Currently or been in a relationship where the following occur: no concerns reported Const General: cooperative, comfortable and no acute distress Orientation/consciousness: patient oriented x3 HENMT Head: Yes normocephalic and Yes atraumatic Eyes General: appearance normal, both eyes and all related structures Pupils: Equal, round and reactive pupils present EOM: EOMs intact bilaterally Neck Neck: Yes supple and No lymphadenopathy Thyroid: Thyroid normal Lymphatic: no lymphadenopathy noted Resp Effort & Inspection: normal respiratory effort and able to speak in complete sentences Auscultation: clear to auscultation bilaterally Cardio Heart sounds: S1 normal heart sound present and S2 normal heart sound present GI Palpation (GI): Soft to palpation and nontender Auscultation: normal bowel sounds General: Yes no CVA tenderness Back/Spine/Pelvis Back: no CVA tenderness Skin General skin exam: elasticity normal and turgor normal Neuro General: patient oriented x3 and gait normal Cranial nerves: Yes Equal, round and reactive pupils present Speech: No Abnormal speech present Sensory Exam: No Sensory deficit (Neuro) Coordination: tandem gait normal and Romberg test negative Extrem General: Yes normal exam except as noted and No edema Assessment and Plan Assessment & Plan (1) Encounter for general adult medical examination with abnormal findings: Code(s): Z00.01 - Encounter for general adult medical examination with abnormal findings (2) Impaired fasting blood sugar: Code(s): R73.01 - Impaired fasting glucose (3) Lipid disorder: Code(s): E78.9 - Disorder of lipoprotein metabolism, unspecified (4) Osteoporosis: Code(s): M81.0 - Age-related osteoporosis without current pathological fracture Qualifiers: Osteoporosis type: age-related Presence of current pathological fracture: without current pathological fracture Qualified Code(s): M81.0 - Age-related osteoporosis without current pathological fracture Plan Patient is 58-year-old female came in today for physical examination Labs were done recently reviewed LDL is 83 fasting sugar is 108 Colonoscopy was May of 2023 Mammogram September of 2022 Bone density September of 2022 patient have osteoporosis with a score of-3.8, she was prescribed Fosamax but patient is not taking it She had a consultation with endocrinology Dr. Menjivar as well, patient says that she is reluctant to take the medication she is still thinking about it Lipid disorder: She has also stopped taking rosuvastatin she was on 20 mg We will repeat labs again in 6 months and then decide, patient says that she was having aching in her legs physical exam 1 year Orders: Orders Complete Blood Count Auto Diff 6 Months E78.9 - Disorder of lipoprotein metabolism, unspecified, M81.0 - Age-related osteoporosis without current pathological fracture, R73.01 - Impaired fasting glucose Comprehensive [place]. Panel Fast 6 Months E78.9 - Disorder of lipoprotein metabolism, unspecified, M81.0 - Age-related osteoporosis without current pathological fracture, R73.01 - Impaired fasting glucose Lipid Panel 6 Months E78.9 - Disorder of lipoprotein metabolism, unspecified, M81.0 - Age-related osteoporosis without current pathological fracture, R73.01 - Impaired fasting glucose Coding Level of Care Code Est Pt Prev Care 40-64y(49182) Diagnoses Encounter for general adult medical examination with abnormal findings Z00.01 Impaired fasting blood sugar R73.01 Lipid disorder E78.9 Age-related osteoporosis without current pathological fracture M81.0 Osteoporosis type: age-related Presence of current pathological fracture: without current pathological fracture Additional Codes JAKOB-7 Assessment Billing - JAKOB-7 Assessment Tool: JAKOB-7 Assessment 02776 ([id number])
== END 2023-09-07 09:14 | disposition home or self-care (01) ==
PROVIDERS: Visit Provider Internal Medicine
DX: Z00.00 Encounter for general adult medical examination without abnormal findings (principal); R73.01 Impaired fasting glucose; E78.9 Disorder of lipoprotein metabolism, unspecified; M81.0 Age-related osteoporosis without current pathological fracture
CPT/HCPCS: 99396

== ENCOUNTER 2023-09-19 07:24 | Outpatient (REF) | payer OTHER, SELFPAY | END 2023-09-19 07:25 | disposition home or self-care (01) | LOC: HO.MAMMO 07:24 | PROVIDERS: PCP Internal Medicine; Visit Provider Internal Medicine | DX: Z12.31 Encounter for screening mammogram for malignant neoplasm of breast (principal) | CPT/HCPCS: 77063; 77067 ==

== ENCOUNTER → 2023-09-19 07:30 | Outpatient (BNV) | payer OTHER, SELFPAY | PROVIDERS: PCP Internal Medicine; Visit Provider Radiology Diagnostic Radiology | DX: Z12.31 Encounter for screening mammogram for malignant neoplasm of breast (principal) | CPT/HCPCS: 77063; 77067 ==

== ENCOUNTER 2023-12-10 06:00 | Outpatient (REF) | payer OTHER, SELFPAY ==
[2023-12-10 08:28] LABS: Alanine Aminotransferase 27 U/L (0-31); Alkaline Phosphatase 67 U/L (39-117); Anion Gap 13 (12-20); Aspartate Amino Transferase 31 U/L (5-31); Bilirubin Total 0.3 mg/dL (0.0-1.0); Blood Urea Nitrogen 13 mg/dL (9-16); Calcium 9.5 mg/dL (8.4-10.2); Carbon Dioxide 25 mmol/L (22-29); Chloride 110 mmol/L (96-108); Estimated Glomerular Filt Rate > 60; Glucose Random 101 mg/dL (60-115); Sodium 144 mmol/L (135-145); Total Protein 7.1 g/dL (6.5-8.0); Triglycerides 109 mg/dL (<150)
== END 2023-12-10 06:01 | disposition home or self-care (01) ==
LOC: HO.LAB 06:00
PROVIDERS: PCP Internal Medicine; Visit Provider Physician Assistant Medical
DX: L90.0 Lichen sclerosus et atrophicus (principal)
CPT/HCPCS: 36415; 80053; 84478

== ENCOUNTER 2024-02-15 09:05 | Outpatient (AMB) | payer OTHER, SELFPAY ==
--- NOTE | 2024-02-15 09:06 | A.OFFPC_ITS ---
Vital Signs 3 02/15/24 09:08 Height 5 ft Weight 148 lb 2 oz BMI 28.9 BP 126/82 Blood Pressure Location Rt brachial Position Sitting Pulse 72 Pulse Source Pulse Oximeter Pulse Oximetry (%) 99 Oxygen Delivery Method Room Air Intake Visit Reasons: LT shoulder and arm pain Allergies latex [LATEX] Allergy (Unknown, Verified 02/15/24 09:10) BREAK OUT - RASH Medication List - Last Reconciled 02/15/24 by Maycol Palacios MD alendronate (Fosamax) 70 mg PO QWEEK 90 days betamethasone dipropionate 0.05% 1 appl topical BID calcium carbonate (Antacid Calcium) 215 mg PO DAILY cholecalciferol (vitamin D3) 25 mcg PO DAILY ibuprofen 800 mg PO TID PRN rosuvastatin (Crestor) 20 mg PO DAILY 90 days Tobacco use date assessed: 02/15/24 Dental Screening Dental Screen Date: 02/15/24 Did you have a dental visit in the last 12 months?: Yes Did you have a dental problem in the last 6 months where you did not have access to dental care?: No Was dental information given to patient?: Patient has dentist HPI LT shoulder and arm pain 2 HPI0 Details Patient is 59-year-old female came in today to be evaluated for left shoulder pain which has been happening for a while But now getting worse Patient says that she is having difficulty raising her arm above her head or back On examination she has a limited range of motion in left shoulder, unable to lift beyond 90 degrees She is also tender over the rotator cuff with palpation I have ordered x-ray for the patient, she is requesting her orthopedic referral which I have placed for her. [facility] Medical History Lichen sclerosus Osteoporosis LFT elevation Impaired fasting blood sugar Colonoscopy planned Surgical History H/O colonoscopy History of tubal ligation Family History Maternal Aunt Melanoma Paternal Aunt Breast CA Mother Osteoporosis Father Heart disease Diabetes mellitus Dementia CVD (cardiovascular disease) Maternal Grandmother Osteoporosis Maternal Grandfather No problems noted. Paternal Grandmother No problems noted. Paternal Grandfather Cancer Son No problems noted. Daughter No problems noted. Social History Household Members: None Housing: House Alcohol intake: current Alcohol intake frequency: holidays/special occasions only Patient Tobacco Use Status: Never used Tobacco e-Cigarette/Vaping Use: Never Used service: No Current occupational status: employed Current occupation: [employer] Sexual orientation: Straight/Heterosexual Gender identity: Female Cognitive needs: No Hearing needs: No Vision needs: No Questionnaire Thrive Questionnaire Date Thrive assessed: 09/07/23 AUDIT C Alcohol Use Questionnaire (AUDIT-C) 1. How often do you have a drink containing alcohol?: Monthly or less 2. How many drinks containing alcohol do you have on a typical day when you are drinking?: 1 or 2 3. How often do you have six or more drinks on one occasion?: Never Total Score: 1 Score Reviewed/Action Taken: Yes JAKOB-7 AMB Questionnaire JAKOB-7 Date JAKOB - 7 assessed: 09/07/23 Source: Developed by Drs. Josep Mendes, Marlena Melchor, Jurgen Barnett and colleagues, with an educational bryan from [employer]. Review of Systems Const All systems reviewed & are unremarkable except as noted in HPI and below Physical exam (Primary Care) Vital Signs: Last Vital Signs Pulse 72 02/15/24 09:08 BP 126/82 02/15/24 09:08 Pulse Ox 99 02/15/24 09:08 Oxygen Delivery Method Room Air 02/15/24 09:08 BMI result Body Mass Index 28.9 Tobacco/Smoking Status: Tobacco use Status Tobacco use date assessed 02/15/24 02/15/24 09:11 Patient Tobacco Use Status Never used Tobacco 02/15/24 09:06 e-Cigarette/Vaping Use Never Used 02/15/24 09:06 Thrive Assessment: Date of Thrive Assessment Date Thrive assessed 09/07/23 02/15/24 09:06 Const General: no acute distress Orientation/consciousness: patient oriented x3 Eyes General: appearance normal, both eyes and all related structures Resp Effort & Inspection: normal respiratory effort and able to speak in complete sentences Neuro General: patient oriented x3 Extrem Shoulder/upper arm images: 2 1. Tender to palpation, unable to lift left shoulder beyond 90 degrees because of pain, pulse 2+ left upper extremity sensory motor intact Psych Mental Status: mental status grossly normal Assessment and Plan Assessment & Plan (1) Tendinopathy of rotator cuff: Code(s): M67.919 - Unspecified disorder of synovium and tendon, unspecified shoulder Qualifiers: Laterality: left Qualified Code(s): M67.912 - Unspecified disorder of synovium and tendon, left shoulder Plan Patient is 59-year-old female came in today to be evaluated for left shoulder pain which has been happening for a while But now getting worse Patient says that she is having difficulty raising her arm above her head or back On examination she has a limited range of motion in left shoulder, unable to lift beyond 90 degrees She is also tender over the rotator cuff with palpation I have ordered x-ray for the patient, she is requesting her orthopedic referral which I have placed for her. Orders: Orders 2 XR shoulder LT min 2V Today M67.919 - Unspecified disorder of synovium and tendon, unspecified shoulder Referrals 2 Orthopedics Referral M67.919 - Unspecified disorder of synovium and tendon, unspecified shoulder Coding Level of Care Code Est Pt Level 3 (12320) Diagnoses Tendinopathy of left rotator cuff M67.912 Laterality: left
[2024-02-15 09:08] VITALS: BP 126/82; PULSE 72; O2SAT 99; BMI 28.9
== END 2024-02-15 10:15 | disposition home or self-care (01) ==
PROVIDERS: PCP Internal Medicine; Visit Provider Internal Medicine
DX: M67.912 Unspecified disorder of synovium and tendon, left shoulder (principal)
CPT/HCPCS: 99213

== ENCOUNTER 2024-02-15 09:20 | Outpatient (REF) | payer OTHER, SELFPAY ==
--- NOTE | ~2024-02-15 | XR_ITS ---
EXAMINATION: XR SHOULDER, LEFT CLINICAL INFORMATION: Left shoulder pain COMPARISON: None available. TECHNIQUE: AP external rotation, Grashey, scapular Y, and axillary views of the left shoulder. FINDINGS: No fracture or malalignment. Mild acromioclavicular osteoarthritis. No suspicious bone lesion or soft tissue calcification. XR/XR shoulder LT min 2V IMPRESSION: Mild acromioclavicular osteoarthritis.
== END 2024-02-15 09:21 | disposition home or self-care (01) ==
LOC: HO.HMGCX 09:20
PROVIDERS: PCP Internal Medicine; Visit Provider Internal Medicine
DX: M67.912 Unspecified disorder of synovium and tendon, left shoulder (principal)
CPT/HCPCS: 73030

== ENCOUNTER 2024-02-29 08:18 | Outpatient (AMB) | payer OTHER, SELFPAY ==
--- NOTE | 2024-02-29 08:28 | A.OFFVIS_ITS ---
Intake Visit Reasons: New Prob - left shoulder pain Intake Note: Maki is a 59 year old right hand dominant female who presents for a evaluation of her left shoulder pain. Patient reports ongoing pain for a couple months. No hx of injury. No hx of previous treatment. Pain is on the lateral aspect of the shoulder and it radiates down to her bicep. Patient has tried and failed with icing, taking Advil and Tylenol. Allergies latex [LATEX] Allergy (Unknown, Verified 02/29/24 08:31) BREAK OUT - RASH HPI HPI New Prob - left shoulder pain: Details: 59-year-old right hand dominant female who presents in the office today for an evaluation of left shoulder pain. The patient was seen by her PCP on 02/15/24 stating the pain had been present ?for a while?. X-rays were obtained. ? ? While in the office today, the patient reports ongoing pain for a few months. She claims the pain is along the lateral aspect of the left shoulder radiating down her biceps. She reports trying ice, Advil, and Tylenol with no relief. She denies any prior treatments or injury to the left shoulder. ?She is an employee here at the [employer] and works in [email or web address]. [facility] Medical History Lichen sclerosus Osteoporosis LFT elevation Impaired fasting blood sugar Colonoscopy planned Surgical History H/O colonoscopy History of tubal ligation Family History Maternal Aunt Melanoma Paternal Aunt Breast CA Mother Osteoporosis Father Heart disease Diabetes mellitus Dementia CVD (cardiovascular disease) Maternal Grandmother Osteoporosis Maternal Grandfather No problems noted. Paternal Grandmother No problems noted. Paternal Grandfather Cancer Son No problems noted. Daughter No problems noted. Social History Household Members: None Housing: House Alcohol intake: current Alcohol intake frequency: holidays/special occasions only Patient Tobacco Use Status: Never used Tobacco e-Cigarette/Vaping Use: Never Used service: No Current occupational status: employed Current occupation: [employer] Sexual orientation: Straight/Heterosexual Gender identity: Female Cognitive needs: No Hearing needs: No Vision needs: No Review of Systems Const All systems reviewed & are unremarkable except as noted in HPI and below Physical Exam Const General: cooperative, healthy appearing and no acute distress Resp Effort & Inspection: normal respiratory effort and able to speak in complete sentences Cardio Rate: regular rate Peripheral pulses: Peripheral pulses 2+ throughout GI Palpation (GI): Soft to palpation Skin Lesions: no lesions Rashes: no rashes Extrem Other: Left shoulder: Forward flexion and abduction to 90 degrees. External rotation to neutral. Pain with cross-body reach. 3/5 strength. Negative drop arm. NVI.? Office Procedures Joint Injection/Aspiration Joint Injection/Aspiration Primary Site: left shoulder Prep: site was prepped using aseptic technique, ethochloride spray was applied and injection warnings given Injected: 80 mg of, DepoMedrol, with 8 mL of (2% plain lido ) and in the subcromial space Approach Used: posterolateral Procedure: The patient tolerated the procedure well, but had some pain with the injection and there was some relief with the local anesthesia Coding 94205 - Large joint Procedure code (CPT) selection complete Assessment & Plan Assessment & Plan (1) Painful arc syndrome of left shoulder: Code(s): M75.102 - Unspecified rotator cuff tear or rupture of left shoulder, not specified as traumatic Category: Medical (2) Adhesive capsulitis of left shoulder: Code(s): M75.02 - Adhesive capsulitis of left shoulder Category: Medical Plan Ms. Terry is a 59-year-old right hand dominant female who presents in the office today for an evaluation of left shoulder pain. The patient was seen by her PCP on 02/15/24 stating the pain had been present ?for a while?. X-rays were obtained. ? ? While in the office today, the patient reports ongoing pain for a few months. She claims the pain is along the lateral aspect of the left shoulder radiating down her biceps. She reports trying ice, Advil, and Tylenol with no relief. She denies any prior treatments or injury to the left shoulder.?She is an employee here at the [facility] and works in [email or web address]. ? The patient was offered a cortisone injection in the left shoulder with 80 mg of DepoMedrol. The patient was explained the risks, benefits, and alternatives to receiving this injection. After receiving consent for the injection, the patient had the procedure done while in the office today. The patient tolerated the procedure well with no complications.? ? The patient will be referred to physical therapy to work on ROM and strengthening of the left shoulder. Follow-up will be in six weeks, or sooner if needed. ? ? X-rays of the left shoulder obtained on 02/29/24 and?reviewed by me, Jennifer Soria PA-C, revealed: no acute fracture or dislocation. Patient Instructions: Scribed by Kaleigh Soto medical director occupational health, for Jennifer Soria PA-C on 02/29/2024 at 8:24 am, EST.? Coding Level of Care Code New Pt Level 3 (86887) Diagnoses Painful arc syndrome of left shoulder M75.102 Adhesive capsulitis of left shoulder M75.02 CPT Codes Coding - 47146 Large joint: 56629 - Large joint ([id number])
== END 2024-02-29 09:12 | disposition home or self-care (01) ==
PROVIDERS: PCP Internal Medicine; Visit Provider Physician Assistant
DX: M75.102 Unspecified rotator cuff tear or rupture of left shoulder, not specified as traumatic (principal); M75.02 Adhesive capsulitis of left shoulder
CPT/HCPCS: 20610; 99213

== ENCOUNTER → 2024-02-29 08:18 | Outpatient (BNVA) | payer OTHER, SELFPAY | PROVIDERS: PCP Internal Medicine; Visit Provider Physician Assistant | DX: M75.102 Unspecified rotator cuff tear or rupture of left shoulder, not specified as traumatic (principal); M75.02 Adhesive capsulitis of left shoulder | CPT/HCPCS: 20610; J1010 ==

== ENCOUNTER 2024-04-15 08:48 | Outpatient (AMB) | payer OTHER, SELFPAY ==
--- NOTE | 2024-04-15 08:53 | A.OFFVIS_ITS ---
Intake Visit Reasons: OV - left shoulder px, last inj 02/29/24 Intake Note: Maki is a 59 year old right hand dominant female who presents today for a follow up of her left shoulder pain, last injection 02/29/24. Patient reports her last injection didn't give her relief. She mentions her ROM is better with physical therapy but she still has some mild pain. Allergies latex [LATEX] Allergy (Unknown, Verified 04/15/24 08:58) BREAK OUT - RASH HPI HPI OV - left shoulder px, last inj 02/29/24: Details: 59-year-old right hand dominant female who presents in the office today for a f ollow-up of left shoulder pain. I last saw the patient in the office on 02/29/24 when she received a cortisone injection in the left shoulder. She was also referred to physical therapy to work on ROM and strengthening. ? ? While in the office today, the patient states the last cortisone injection did not give her any relief. She reports her ROM has improved with physical therapy, but she still has mild pain. ? PFSH Medical History Lichen sclerosus Osteoporosis LFT elevation Impaired fasting blood sugar Colonoscopy planned Surgical History H/O colonoscopy History of tubal ligation Family History Maternal Aunt Melanoma Paternal Aunt Breast CA Mother Osteoporosis Father Heart disease Diabetes mellitus Dementia CVD (cardiovascular disease) Maternal Grandmother Osteoporosis Maternal Grandfather No problems noted. Paternal Grandmother No problems noted. Paternal Grandfather Cancer Son No problems noted. Daughter No problems noted. Social History Household Members: None Housing: House Alcohol intake: current Alcohol intake frequency: holidays/special occasions only Patient Tobacco Use Status: Never used Tobacco e-Cigarette/Vaping Use: Never Used service: No Current occupational status: employed Current occupation: [employer] Sexual orientation: Straight/Heterosexual Gender identity: Female Cognitive needs: No Hearing needs: No Vision needs: No Review of Systems Const All systems reviewed & are unremarkable except as noted in HPI and below Physical Exam Const General: cooperative, healthy appearing and no acute distress Resp Effort & Inspection: normal respiratory effort and able to speak in complete sentences Cardio Rate: regular rate Peripheral pulses: Peripheral pulses 2+ throughout GI Palpation (GI): Soft to palpation Skin Lesions: no lesions Rashes: no rashes Extrem Other: Left shoulder: Forward flexion to 125 degrees. Abduction to 120 degrees. External rotation to 20 degrees. NVI. Assessment & Plan Assessment & Plan (1) Painful arc syndrome of left shoulder: Code(s): M75.102 - Unspecified rotator cuff tear or rupture of left shoulder, not specified as traumatic Category: Medical (2) Adhesive capsulitis of left shoulder: Code(s): M75.02 - Adhesive capsulitis of left shoulder Category: Medical Plan Ms. Terry is a 59-year-old right hand dominant female who presents in the office today for a follow-up of left shoulder pain. I last saw the patient in the office on 02/29/24 when she received a cortisone injection in the left shoulder. She was also referred to physical therapy to work on ROM and strengthening. ? ? While in the office today, the patient states the last cortisone injection did not give her any relief. She reports her ROM has improved with physical therapy, but she still has mild pain.? ? We discussed the role of MRI imaging versus continuing physical therapy. I informed the patient that MRI imaging would be used for surgical planning. However, at this time the patient does not wish to proceed with surgical intervention. Therefore, I have placed an order for 6 weeks of physical therapy. I would like her to follow-up with me in six weeks via telephone encounter appointment to discuss how she is doing. Should she continue to have pain then we will move forward with the MRI imaging at that time. Follow-up will be in six weeks, or sooner if needed. ? Patient Instructions: Scribed by Kaleigh Soto certified ophthalmic medical technician, for Jennifer Soria PA-C on 04/15/2024 at 8:54 am, EST.? Coding Level of Care Code Est Pt Level 3 (81400) Diagnoses Painful arc syndrome of left shoulder M75.102 Adhesive capsulitis of left shoulder M75.02
== END 2024-04-15 09:11 | disposition home or self-care (01) ==
PROVIDERS: PCP Internal Medicine; Visit Provider Physician Assistant
DX: M75.102 Unspecified rotator cuff tear or rupture of left shoulder, not specified as traumatic (principal); M75.02 Adhesive capsulitis of left shoulder
CPT/HCPCS: 99213

== ENCOUNTER → 2024-04-15 08:48 | Outpatient (BNVA) | payer OTHER, SELFPAY | PROVIDERS: PCP Internal Medicine; Visit Provider Physician Assistant ==

== ENCOUNTER 2024-05-01 15:00 | Outpatient (RCR) | payer OTHER, SELFPAY ==
--- NOTE | 2024-03-12 14:31 | MHC.PT.EP ---
[facility] [place] Office [place] Office [place] [facility] [address] [phone] F: [phone] F: [phone] F: [phone] F: [phone] Physical Therapy Plan of Care Date of Evaluation: 03/10/24 Date of Surgery: Diagnosis: L shoulder pain, adhesive capsulitis Assessment: Pt is a 59yo female who was referred to PT for L shoulder adhesive capsulitis. PT exam reveals significantly impaired ROM with pain at end ranges, following a capsular pattern. Skilled PT indicated to apply manual treatment to improve ROM, teach self AAROM for HEP to promote gains, increase periscap strength and scapulohumeral rhythm to normalize use of L UE. Pt is motivated to participate and in agreement with POC. Frequency and Duration: The patient will be seen 2x/week, x 6 weeks Short Term Goals: 1. In 3 weeks, improve AROM shoulder abduction and ER 10 degrees. 2. In 2 weeks, patient will be I with closed chain AAROM exercises for L shoulder. Custodial Goals: 1. In 6 weeks, patient will be able to reach behind her back to put on her bra without increased pain. 2. In 6 weeks, improve SPADI score by 25%. Treatment Plan: Modalities to reduce pain, spasms and effusion. Manual therapy to restore motion and function. Therapeutic exercise to improve strength and flexibility. Neuromuscular re-education for posture and balance. Therapeutic activities to return to functional activities of daily living. Electronically signed by: Yasmine Shaffer PT, DPT Please sign and return to therapist. Thank you for your referral.
--- NOTE | 2024-06-11 15:55 | MHC.PT.DC ---
[facility] [place] [place] [facility] [address] Teresa Santos [address] [phone] F: [phone] F: [phone] F: [phone] F: [phone] Physical Therapy Discharge Report Diagnosis: L shoulder pain, adhesive capsulitis Date of Surgery: Date of Evaluation: 03/10/24 Date of Discharge: 06/11/24 Treatments to Date: 13 Cancellations to Date: 5 No Shows to Date: 0 Discharge Status: Independent with HEP Patient Elected to Stop Discharge Summary: Maki was last see in PT on 05/01/24, the assessment reads, Maki is showing good AAROM with pulleys and rolling therabar up wall into shoulder flexion. She does well with scapular stabilization and shoulder strengthening exercises without c/o pain. She is appropriate for D/C next session if she continues with progress. She cancelled her last PT session and is therefore discharged from PT. Electronically signed by: Priscila Segundo, PT, DPT Please sign and return to therapist. Thank you for your referral.
== END 2024-06-11 15:55 | disposition home or self-care (01) ==
LOC: HO.PT 15:00
PROVIDERS: PCP Internal Medicine; Visit Provider Physician Assistant
DX: M75.02 Adhesive capsulitis of left shoulder (principal); M75.102 Unspecified rotator cuff tear or rupture of left shoulder, not specified as traumatic
CPT/HCPCS: 97110; 97140; 97161; 97162; 97530

== ENCOUNTER 2024-05-09 13:48 | Outpatient (AMB) | payer OTHER, SELFPAY ==
--- NOTE | 2024-05-09 13:51 | A.OFFVIS_ITS ---
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 She is doing well with no concerns. Goes to [facility] for lichen sclerosus twice a year. Attempting to eat a healthy diet with calcium and vitamin D and stays active with exercise. Currently not sexually active. Denies any vaginal dryness or irritation. Last pap smear; 2019. Last mammogram; 2023. Colonoscopy is UTD. Denies any family history of ovarian or colon cancer. FH breast cancer. [facility] Medical History Lichen sclerosus Osteoporosis LFT elevation Impaired fasting blood sugar Colonoscopy planned Surgical History H/O colonoscopy History of tubal ligation Family History Maternal Aunt Melanoma Paternal Aunt Breast CA Mother Osteoporosis Father Heart disease Diabetes mellitus Dementia CVD (cardiovascular disease) Maternal Grandmother Osteoporosis Maternal Grandfather No problems noted. Paternal Grandmother No problems noted. Paternal Grandfather Cancer Son No problems noted. Daughter No problems noted. Social History Household Members: None Housing: House Alcohol intake: current Alcohol intake frequency: holidays/special occasions only Patient Tobacco Use Status: Never used Tobacco e-Cigarette/Vaping Use: Never Used service: No Current occupational status: employed Current occupation: [employer] Sexual orientation: Straight/Heterosexual Gender identity: Female Cognitive needs: No Hearing needs: No Vision needs: No Female Reproductive History Menstrual control method: permanent sterilization Permanent Sterilization: BTL Total pregnancies: 2 Full term: 2 Number of Living Children: 2 Date of last pap smear: 05/31/20 (neg pap and hpv) Date of Mammogram: 09/19/23 (Birad 1) Date of last Bone Density Screenin09/13/22 Other: Colonoscopy 04/2023 Review of Systems Const All systems reviewed & are unremarkable except as noted in HPI and below Reports as per HPI Eyes Reports no additional complaints ENT Reports no additional complaints Card Reports no additional complaints Resp Reports no additional complaints GI Reports as per HPI and Reports no additional complaints Reports as per HPI Musc Reports no additional complaints Skin/Breast Reports as per HPI Neuro Reports no additional complaints Psych Reports no additional complaints Endo Reports no additional complaints Timothy/Lymph Reports no additional complaints Aller/Immun Reports no additional complaints Physical Exam Vital Signs: Last Vital Signs BP 112/64 05/09/24 13:52 BMI result Body Mass Index 30.7 Const General: cooperative, healthy appearing, no acute distress, well developed and alert Orientation/consciousness: patient oriented x3 HEENT Head: Yes normal to inspection Eyes General: appearance normal, both eyes and all related structures Neck Neck: Yes normal visual inspection Thyroid: Thyroid normal Chest Chest palpation & inspection: normal inspection of the chest and other (no puckering, dimpling, peau de orange, retraction, discharge, masses) Breast/axilla inspection: normal inspection of the breasts Breast/axilla palpation: normal palpation of the breasts Resp Effort & Inspection: normal respiratory effort GI Inspection: Yes normal to inspection Palpation (GI): Soft to palpation Rectal Exam - Female: deferred Other: scattered mild hypopigmentation of the vulva General: Yes bladder normal to palpation External Female Exam: normal external appearance and normal appearance of the urethra Speculum Exam - Vagina: normal appearance of the vagina, normal palpation, normal vaginal discharge and vagina atrophic Speculum Exam - Cervix: normal appearance of the cervix and normal palpation Bimanual exam- vagina & uterus: normal bimanual exam, normal palpation, uterine size normal, bladder normal to palpation, normal palpation and non-tender Bimanual Exam- Adnexa, other: no masses Skin General skin exam: no rashes or lesions noted Rashes: no rashes Neuro General: patient oriented x3 Cognition (Neuro): normal cognition Extrem General: Yes normal to inspection Psych Attitude: cooperative Thought process: Normal thought process present Assessment & Plan Assessment & Plan (1) Encounter for well woman exam with routine gynecological exam: Code(s): Z01.419 - Encounter for gynecological examination (general) (routine) without abnormal findings Category: Medical Plan Discussed: Current recommendations for pap smears per ASCCP guidelines. Breast awareness, periodic self breast exams and yearly mammogram. Maintain a healthy lifestyle, well balanced diet including Calcium 1,200 mg and Vitamin D 600 IU daily, and routine exercise. Keep follow up with [facility]. Contact the office with any postmenopausal bleeding. Patient verbalizes understanding and agrees to the plan of care. She was given opportunity to ask questions and all questions were answered to the best of my ability. RTO in 1 year for annual chamber walker exam. This note is constructed using voice recognition software. While every effort has been made to ensure accuracy, antenna engineer errors may have been included. Coding Level of Care Code Est Pt Prev Care 40-64y(55666) Diagnoses Encounter for well woman exam with routine gynecological exam Z01.419
[2024-05-09 13:52] VITALS: BP 112/64; BMI 30.7
== END 2024-05-09 14:33 | disposition home or self-care (01) ==
PROVIDERS: PCP Internal Medicine; Visit Provider Advanced Practice Midwife
DX: Z01.419 Encounter for gynecological examination (general) (routine) without abnormal findings (principal)
CPT/HCPCS: 99396

== ENCOUNTER → 2024-05-09 13:48 | Outpatient (BNVA) | payer OTHER, SELFPAY | PROVIDERS: PCP Internal Medicine; Visit Provider Advanced Practice Midwife ==

== ENCOUNTER 2024-06-19 06:08 | Outpatient (REF) | payer OTHER, SELFPAY ==
[2024-06-19 06:31] LABS: MANUAL DIFF FLAG NO
[2024-06-19 07:49] LABS: Basophils Absolute Auto 0.1 X10*3/uL (0.0-0.2); Basophils Percent Auto 1.4 % (0-2); Eosinophils Absolute Auto 0.1 X10*3/uL (0.0-0.4); Eosinophils Percent Auto 2.5 % (0-4); Hematocrit 42.7 % (37.0-47.0); Imm Gran Abs Auto 0.01 X10*3/uL (0.00-0.03); Imm Gran Pct Auto 0.2 % (0.0-0.4); Lymphocytes Absolute Auto 1.5 X10*3/uL (1.2-4.9); Lymphocytes Percent Auto 29.6 % (20-40); Mean Corpuscular HGB Conc 32.8 g/dl (31.0-35.0); Mean Corpuscular Hemoglobin 29.5 pg (27.0-33.0); Mean Corpuscular Volume 90.1 fL (80.0-98.0); Mean Platelet Volume 10.1 fL (9.4-12.3); Monocytes Absolute Auto 0.6 X10*3/uL (0.1-1.2); Monocytes Percent Auto 12.2 % (2-11); Neutrophils Absolute Auto 2.8 x10*3/uL (2.0-8.3); Neutrophils Percent Auto 54.1 % (45-73); Platelet Count 314 X10*3/uL (160-400); Red Blood Count 4.74 X10*6/uL (4.20-5.50); Red Cell Distribution Width 13.2 % (11.0-16.0); White Blood Count 5.2 X10*3/uL (4.8-10.8)
[2024-06-19 08:18] LABS: Alanine Aminotransferase 46 U/L (0-31); Albumin Level 4.1 g/dL (3.5-5.0); Alkaline Phosphatase 61 U/L (39-117); Anion Gap 13 (12-20); Aspartate Amino Transferase 46 U/L (5-31); Bilirubin Total 0.3 mg/dL (0.0-1.0); Blood Urea Nitrogen 22 mg/dL (9-16); Calcium 9.6 mg/dL (8.4-10.2); Carbon Dioxide 27 mmol/L (22-29); Chloride 103 mmol/L (96-108); Cholesterol 232 mg/dL (<200); Estimated Glomerular Filt Rate > 60; Glucose Fasting 99 mg/dL (60-99); HDL Cholesterol 54 mg/dL (>40); LDL Cholesterol Calculated 161 mg/dL (<100); Potassium 4.4 mmol/L (3.3-5.1); Sodium 139 mmol/L (135-145); Total Protein 7.2 g/dL (6.5-8.0); Triglycerides 89 mg/dL (<150)
== END 2024-06-19 06:09 | disposition home or self-care (01) ==
LOC: HO.LAB 06:08
PROVIDERS: PCP Internal Medicine; Visit Provider Internal Medicine
DX: E78.9 Disorder of lipoprotein metabolism, unspecified (principal); R73.01 Impaired fasting glucose; M81.0 Age-related osteoporosis without current pathological fracture
CPT/HCPCS: 36415; 80053; 80061; 85025

== ENCOUNTER 2024-06-26 08:17 | Outpatient (AMB) | payer OTHER, SELFPAY ==
--- NOTE | 2024-06-26 08:32 | MHC.PC.OV ---
Intake Visit Reasons: Discuss labs Allergies latex [LATEX] Allergy (Unknown, Verified 05/09/24 13:52) BREAK OUT - RASH Medication List - Last Reconciled 06/26/24 by Maycol Palacios MD alendronate (Fosamax) 70 mg PO QWEEK 90 days betamethasone dipropionate 0.05% 1 appl topical BID calcium carbonate (Antacid Calcium) 215 mg PO DAILY cholecalciferol (vitamin D3) 25 mcg PO DAILY ibuprofen 800 mg PO TID PRN rosuvastatin 5 mg PO DAILY 90 days Tobacco use date assessed: 06/26/24 Dental Screening Dental Screen Date: 06/26/24 Did you have a dental visit in the last 12 months?: Yes Did you have a dental problem in the last 6 months where you did not have access to dental care?: No Was dental information given to patient?: Patient has dentist HPI Discuss labs HPI Details f/u labs patient stopped crestor , she wanted to try diet to control lipids labs showed LDL went up to 161 it was 86 before LFT slightly elevated as well , in 40s I am restarting her on reduced dose of crestor 5 mg we will repeat labs again in 6 wks she also would like to have her TSH checked as she has been putting on weight and feeling sluggish f.u after labs in 6 wks [facility] Medical History Lichen sclerosus Osteoporosis LFT elevation Impaired fasting blood sugar Colonoscopy planned Surgical History H/O colonoscopy History of tubal ligation Family History Maternal Aunt Melanoma Paternal Aunt Breast CA Mother Osteoporosis Father Heart disease Diabetes mellitus Dementia CVD (cardiovascular disease) Maternal Grandmother Osteoporosis Maternal Grandfather No problems noted. Paternal Grandmother No problems noted. Paternal Grandfather Cancer Son No problems noted. Daughter No problems noted. Social History Household Members: None Housing: House Alcohol intake: current Alcohol intake frequency: holidays/special occasions only Patient Tobacco Use Status: Never used Tobacco e-Cigarette/Vaping Use: Never Used service: No Current occupational status: employed Current occupation: [employer] Sexual orientation: Straight/Heterosexual Gender identity: Female Cognitive needs: No Hearing needs: No Vision needs: No Questionnaire Thrive Questionnaire Date Thrive assessed: 09/07/23 AUDIT C Alcohol Use Questionnaire (AUDIT-C) 1. How often do you have a drink containing alcohol?: Never 3. How often do you have six or more drinks on one occasion?: Never Total Score: 0 Score Reviewed/Action Taken: Yes JAKOB-7 AMB Questionnaire JAKOB-7 Date JAKOB - 7 assessed: 09/07/23 Source: Developed by Drs. Josep Mendes, Marlena Melchor, Jurgen Barnett and colleagues, with an educational bryan from [employer]. Review of Systems Const Denies chills and Denies fever(s) ENT Denies epistaxis and Denies nasal discharge Card Denies chest pain Resp Denies chest congestion, Denies cough and Denies hemoptysis GI Denies diarrhea and Denies nausea Skin/Breast Denies rash Neuro Reports no additional complaints Psych Reports no additional complaints Endo Reports no additional complaints Physical exam (Primary Care) Tobacco/Smoking Status: Tobacco use Status Tobacco use date assessed 06/26/24 06/26/24 08:33 Patient Tobacco Use Status Never used Tobacco 06/26/24 08:33 e-Cigarette/Vaping Use Never Used 06/26/24 08:33 Thrive Assessment: Date of Thrive Assessment Date Thrive assessed 09/07/23 06/26/24 08:33 Telehealth Telehealth Telehealth Platform: [facility] Location of provider rendering services: practice address Location of patient: address on file Patient Identification confirmed using: Name, : Yes Telehealth method: voice only Patient verbally consented to treatment: Yes Patient verbally consented to billing insurance company: Yes Patient informed of any privacy concerns related to visit: Yes Coding Level of Care Code Tele Est Pt Level 3 (23912) Diagnoses Impaired fasting blood sugar R73.01 LFT elevation R79.89 Lipid disorder E78.9 Sluggishness R41.89 Assessment & Plan Assessment & Plan (1) Impaired fasting blood sugar: Code(s): R73.01 - Impaired fasting glucose Category: Medical (2) LFT elevation: Code(s): R79.89 - Other specified abnormal findings of blood chemistry Category: Medical (3) Lipid disorder: Code(s): E78.9 - Disorder of lipoprotein metabolism, unspecified Category: Medical (4) Sluggishness: Code(s): R41.89 - Other symptoms and signs involving cognitive functions and awareness Category: Medical Plan f/u labs patient stopped crestor , she wanted to try diet to control lipids labs showed LDL went up to 161 it was 86 before LFT slightly elevated as well , in 40s I am restarting her on reduced dose of crestor 5 mg we will repeat labs again in 6 wks she also would like to have her TSH checked as she has been putting on weight and feeling sluggish f.u after labs in 6 wks Orders: Orders Comprehensive [place]. Panel Fast Today E78.9 - Disorder of lipoprotein metabolism, unspecified, R41.89 - Other symptoms and signs involving cognitive functions and awareness, R73.01 - Impaired fasting glucose, R79.89 - Other specified abnormal findings of blood chemistry Lipid Panel Today E78.9 - Disorder of lipoprotein metabolism, unspecified, R41.89 - Other symptoms and signs involving cognitive functions and awareness, R73.01 - Impaired fasting glucose, R79.89 - Other specified abnormal findings of blood chemistry TSH reflex Free T4 Today E78.9 - Disorder of lipoprotein metabolism, unspecified, R41.89 - Other symptoms and signs involving cognitive functions and awareness, R73.01 - Impaired fasting glucose, R79.89 - Other specified abnormal findings of blood chemistry Medications: Changed From rosuvastatin (Crestor) 20 mg PO DAILY 90 days 90 tabs 1RF To rosuvastatin 5 mg PO DAILY 90 days 90 tabs 0RF
== END 2024-06-26 09:33 | disposition home or self-care (01) ==
LOC: HO.HMCC 08:17
PROVIDERS: PCP Internal Medicine; Visit Provider Internal Medicine
DX: R73.01 Impaired fasting glucose (principal); R79.89 Other specified abnormal findings of blood chemistry; E78.9 Disorder of lipoprotein metabolism, unspecified; R41.89 Other symptoms and signs involving cognitive functions and awareness

== ENCOUNTER → 2024-06-26 08:17 | Outpatient (BNVA) | payer OTHER, SELFPAY | PROVIDERS: PCP Internal Medicine; Visit Provider Internal Medicine ==

== ENCOUNTER 2024-08-01 06:14 | Outpatient (REF) | payer OTHER, SELFPAY ==
[2024-08-01 08:33] LABS: Alanine Aminotransferase 47 U/L (0-31); Albumin Level 4.2 g/dL (3.5-5.0); Alkaline Phosphatase 64 U/L (39-117); Anion Gap 12 (12-20); Aspartate Amino Transferase 46 U/L (5-31); Bilirubin Total 0.3 mg/dL (0.0-1.0); Blood Urea Nitrogen 16 mg/dL (9-16); Carbon Dioxide 27 mmol/L (22-29); Chloride 106 mmol/L (96-108); Cholesterol 178 mg/dL (<200); Estimated Glomerular Filt Rate > 60; Glucose Fasting 104 mg/dL (60-99); HDL Cholesterol 60 mg/dL (>40); LDL Cholesterol Calculated 102 mg/dL (<100); Potassium 3.9 mmol/L (3.3-5.1); Sodium 141 mmol/L (135-145); Total Protein 7.2 g/dL (6.5-8.0); Triglycerides 83 mg/dL (<150)
[2024-08-01 08:35] LABS: TSH reflex Free T4 1.12 uIU/mL (0.32-4.0)
== END 2024-08-01 06:15 | disposition home or self-care (01) ==
LOC: HO.LAB 06:14
PROVIDERS: PCP Internal Medicine; Visit Provider Internal Medicine
DX: R73.01 Impaired fasting glucose (principal); R79.89 Other specified abnormal findings of blood chemistry; E78.9 Disorder of lipoprotein metabolism, unspecified; R41.89 Other symptoms and signs involving cognitive functions and awareness
CPT/HCPCS: 36415; 80053; 80061; 84443

== ENCOUNTER → 2024-08-01 09:26 | Outpatient (BNVA) | payer OTHER, SELFPAY | PROVIDERS: PCP Internal Medicine; Visit Provider Internal Medicine | DX: Z13.89 Encounter for screening for other disorder (principal) | CPT/HCPCS: 99202 ==

== ENCOUNTER → 2024-08-04 07:59 | Outpatient (BNVA) | payer OTHER, SELFPAY | PROVIDERS: PCP Internal Medicine; Visit Provider Internal Medicine | DX: Z13.89 Encounter for screening for other disorder (principal) | CPT/HCPCS: 99213 ==

== ENCOUNTER 2024-09-16 11:15 | Outpatient (AMB) | payer OTHER, SELFPAY ==
[2024-09-16 11:29] VITALS: BP 118/76; PULSE 78; TEMP 36.6; O2SAT 98; BMI 31.8
--- NOTE | 2024-09-16 11:29 | A.OFFPC_ITS ---
Vital Signs 09/16/24 11:29 Height 5 ft Weight 163 lb BMI 31.8 BP 118/76 Blood Pressure Location Lt brachial Position Sitting Pulse 78 Pulse Source Pulse Oximeter Temp 97.9 F Temp Source Oral Pulse Oximetry (%) 98 Oxygen Delivery Method Room Air Intake Visit Reasons: Annual PE Allergies latex [LATEX] Allergy (Unknown, Verified 09/16/24 11:30) BREAK OUT - RASH Medication List - Last Reconciled 09/16/24 by Maycol Palacios MD alendronate (Fosamax) 70 mg PO QWEEK 90 days betamethasone dipropionate 0.05% 1 appl topical BID calcium carbonate (Antacid Calcium) 215 mg PO DAILY cholecalciferol (vitamin D3) 25 mcg PO DAILY ibuprofen 800 mg PO TID PRN rosuvastatin 5 mg PO DAILY 90 days Tobacco use date assessed: 09/16/24 Dental Screening Dental Screen Date: 09/16/24 Did you have a dental visit in the last 12 months?: Yes Did you have a dental problem in the last 6 months where you did not have access to dental care?: No Was dental information given to patient?: Patient has dentist HPI Annual PE HPI Details Physical exam appointment - The patient is a 59 year old female pr esenting with a wellness physical exam. - Prediabetes was identified with a fast ing glucose of 104 mg/dL in recent lab work. - Regular monitoring of liver enzymes sh ows stability over time. - The patient has experienced improvemen t from frozen shoulder with home exercises. - Obesity noted with BMI indicating clas sification, contributing to fatty liver. - Lichen sclerosus is present and manage d with topical creams. Through Dermatology Health Maintenance - Mammogram is up to date; next one sche duled for the following month. - Colonoscopy conducted at age 58, repor lalita as current. At [facility] - Bone density test conducted last in [facility]2022; due for repeat. - Follow-up labs for cholesterol and sug ar levels recommended every six months. - Regular consultation with [employer] was mentioned for weight management. 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 - OBGYN visit current at [facility] Diagnostic results - Labs: Fasting blood sugar level record ed at 104 mg/dL indicating prediabetes. - Tests: Liver enzymes were stable from June to July. - Thyroid function tests returned normal . - CBC results are normal with no indicat ion of anemia. Patient Instructions - Continue with home exercises for shoul bruno mobility. - Maintain regular follow-ups for diabet es screening and cholesterol management. - Scheduled mammogram and bone density t ests to be conducted. - Consider preparing meals at home as a cost-effective weight management strategy. Review of Systems - Musculoskeletal: Reports improvement i n shoulder mobility. - Dermatological: Reports presence of li donna sclerosus. - General: No fever no chills - Neurological: No headaches no dizzin ess - Ear nose throat: No sore throat no hearing difficulty no ear pain - Cardiovascular: No syncope, no chest pain, no palpitations - Gastrointestinal: No nausea vomiting or diarrhea - Endocrine: No polyuria polydipsia no heat intolerance - Genitourinary: No dysuria Physical Exam General: Cooperative, healthy appearing, comfortable, no acute distress Orientation: Patient oriented x3 Limitations: None Head: Normal to inspection Ears: Within normal limit visually Nose: Normal external nose present Face and sinus: Normal facial exam Eyes: Appearance normal, extraocular movement intact pupils reactive Neck: Normal visual inspection and supple, no problem Respiratory: Normal respiratory effort and able to speak in complete sentences. Clear to auscultation, no stridor Breast exam through OBGYN Cardiovascular: S1 and S2 GI: Normal to inspection. Soft to palpation and nontender, a little nausea but nothing major Skin: Turgor normal, no acute findings, Lichen sclerosis managed by derm atologist with topical steroid cream Neuro: Patient oriented x3, motor sensory intact, balance intact, tandem pass Extremities: Normal to inspection, a little issue with shoulder due to previous frozen shoulder, improving with exercises PFSH Medical History Lichen sclerosus Osteoporosis LFT elevation Impaired fasting blood sugar Colonoscopy planned Surgical History H/O colonoscopy History of tubal ligation Family History Maternal Aunt Melanoma Paternal Aunt Breast CA Mother Osteoporosis Father Heart disease Diabetes mellitus Dementia CVD (cardiovascular disease) Maternal Grandmother Osteoporosis Maternal Grandfather No problems noted. Paternal Grandmother No problems noted. Paternal Grandfather Cancer Son No problems noted. Daughter No problems noted. Social History Household Members: None Housing: House Alcohol intake: current Alcohol intake frequency: holidays/special occasions only Patient Tobacco Use Status: Never used Tobacco e-Cigarette/Vaping Use: Never Used service: No Current occupational status: employed Current occupation: [employer] Sexual orientation: Straight/Heterosexual Gender identity: Female Cognitive needs: No Hearing needs: No Vision needs: No Questionnaire PHQ-9 Over the last 2 weeks, how often have you been bothered by any of the following problems? 1. Little interest or pleasure in doing things: not at all 2. Feeling down, depressed, or hopeless: not at all 3. Trouble falling or staying asleep, or sleeping too much: not at all 4. Feeling tired or having little energy: not at all 5. Poor appetite or overeating: not at all 6. Feeling bad about yourself - or that you are a failure or have let yourself or your family down: not at all 7. Trouble concentrating on things, such as reading the newspaper or watching television: not at all 8. Moving or speaking so slowly that other people could have noticed. Or the opposite - being so fidgety or restless that you have been moving around a lot more than usual: not at all 9. Thoughts that you would be better off or of hurting yourself in some way: not at all Total score: 0 Depression Screening Interpretation: Negative Depression Screening Done: Yes 29796 - PHQ-9 Billing: Yes Source: Developed by Drs. Josep Mendes, Marlena Melchor, Jurgen Barnett and colleagues, with an educational bryan from [employer]. Thrive Questionnaire Date Thrive assessed: 09/16/24 I am a: Patient What is your living situation today?: I have a steady place to live Within the past 12 months, did the food you bought not last and you didn't have the money to get more?: Never true Within the past 12 months, did you worry whether your food would run out before you got money to buy more?: Never true Do you have trouble paying for medicines?: No Do you have trouble getting transportation to medical appointments?: No Do you have trouble paying your heating and electricity bill?: No Do you have trouble taking care of your child, family member or friend?: No Do you have trouble with day-to-day activities such as bathing, preparing meals, shopping, managing finances, etc.?: No Are you currently unemployed and looking for a job?: No Are you interested in more education?: No Please select the resources that you would like help with: None Currently or been in a relationship where the following occur: I choose not to answer THRIVE Score: 0 AUDIT C Alcohol Use Questionnaire (AUDIT-C) 1. How often do you have a drink containing alcohol?: 2-4 times a month 2. How many drinks containing alcohol do you have on a typical day when you are drinking?: 1 or 2 3. How often do you have six or more drinks on one occasion?: Never Total Score: 2 Score Reviewed/Action Taken: Yes JAKOB-7 AMB Questionnaire JAKOB-7 Date JAKOB - 7 assessed: 10/10/23 Feeling nervous, anxious, or on edge: 0 = Not at all Not being able to stop or control worryin = Not at all Worrying too much about different things: 0 = Not at all Trouble relaxin = Not at all Being so restless that it is hard to sit still: 0 = Not at all Becoming easily annoyed or irritable: 1 = Several days Feeling afraid as if something awful might happen: 0 = Not at all Total JAKOB-7 score (0-4 normal; 5-9 mild; 10-14 moderate; 15-21 severe): 1 Source: Developed by Drs. Josep Mendes, Marlena Melchor, Jurgen Barnett and colleagues, with an educational bryan from [employer]. JAKOB-7 Assessment Billing JAKOB-7 Assessment Tool: JAKOB-7 Assessment 07663 Physical exam (Primary Care) Vital Signs: Last Vital Signs Temp 97.9 F 09/16/24 11:29 Pulse 78 09/16/24 11:29 BP 118/76 09/16/24 11:29 Pulse Ox 98 09/16/24 11:29 Oxygen Delivery Method Room Air 09/16/24 11:29 BMI result Body Mass Index 31.8 Tobacco/Smoking Status: Tobacco use Status Tobacco use date assessed 09/16/24 09/16/24 11:33 Patient Tobacco Use Status Never used Tobacco 09/16/24 11:33 e-Cigarette/Vaping Use Never Used 09/16/24 11:33 PHQ-9: PHQ-9 Score PHQ-9: Total score 0 09/16/24 11:33 Depression Screening Interpretation: Negative Thrive Assessment: Date of Thrive Assessment Date Thrive assessed 09/16/24 09/16/24 11:33 Currently or been in a relationship where the following occur: I choose not to answer Coding Level of Care Code Est Pt Level 3 (72366) Est Pt Prev Care 40-64y(63590) Diagnoses Encounter for general adult medical examination with abnormal findings Z00.01 LFT elevation R79.89 Impaired fasting blood sugar R73.01 Class 1 obesity due to excess calories with serious comorbidity and body mass index (BMI) of 31.0 to 31.9 in adult E66.811; E66.09; Z68.31 Obesity classification: adult class 1 (BMI 30 - 34.9) Serious obesity comorbidity presence: with serious comorbidity Body mass index: BMI 31.0-31.9 Lipid disorder E78.9 Vitamin D deficiency E55.9 Age-related osteoporosis without current pathological fracture M81.0 Osteoporosis type: age-related Presence of current pathological fracture: without current pathological fracture Additional Codes JAKOB-7 Assessment Billing - JAKOB-7 Assessment Tool: JAKOB-7 Assessment 48445 ([id number]) PHQ-9 - 02445 - PHQ-9 Billing: Yes ([id number]) Assessment & Plan Assessment & Plan (1) Encounter for general adult medical examination with abnormal findings: Code(s): Z00.01 - Encounter for general adult medical examination with abnormal findings Category: Medical (2) LFT elevation: Code(s): R79.89 - Other specified abnormal findings of blood chemistry Category: Medical (3) Impaired fasting blood sugar: Code(s): R73.01 - Impaired fasting glucose Category: Medical (4) Obesity due to excess calories: Code(s): E66.09 - Other obesity due to excess calories Category: Medical Qualifiers: Obesity classification: adult class 1 (BMI 30 - 34.9) Serious obesity comorbidity presence: with serious comorbidity Body mass index: BMI 31.0-31.9 Qualified Code(s): E66.811 - Obesity, class 1; E66.09 - Other obesity due to excess calories; Z68.31 - Body mass index [BMI] 31.0-31.9, adult (5) Lipid disorder: Code(s): E78.9 - Disorder of lipoprotein metabolism, unspecified Category: Medical (6) Vitamin D deficiency: Code(s): E55.9 - Vitamin D deficiency, unspecified Category: Medical (7) Osteoporosis: Code(s): M81.0 - Age-related osteoporosis without current pathological fracture Category: Medical Qualifiers: Osteoporosis type: age-related Presence of current pathological fracture: without current pathological fracture Qualified Code(s): M81.0 - Age- related osteoporosis without current pathological fracture Plan Physical exam appointment - The patient is a 59 year old female presenting with a wellness physical exam. - Prediabetes was identified with a fasting glucose of 104 mg/dL in recent lab work. - Regular monitoring of liver enzymes shows stability over time. - The patient has experienced improvement from frozen shoulder with home exercises. - Obesity noted with BMI indicating classification, contributing to fatty liver. - Lichen sclerosus is present and managed with topical creams. Through Dermatology - osteoporosis, continue Fosamax and vitamin-D Health Maintenance - Mammogram is up to date; next one scheduled for the following month. - Colonoscopy conducted at age 58, reported as current. At [facility] - Bone density test conducted last in September 2022; due for repeat. - Follow-up labs for cholesterol and sugar levels recommended every six months. - Regular consultation with [employer] was mentioned for weight management. 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 - OBGYN visit current at [facility] Diagnostic results - Labs: Fasting blood sugar level recorded at 104 mg/dL indicating prediabetes. - Tests: Liver enzymes were stable from June to July. - Thyroid function tests returned normal. - CBC results are normal with no indication of anemia. Patient Instructions - Continue with home exercises for shoulder mobility. - Maintain regular follow-ups for diabetes screening and cholesterol management. - Scheduled mammogram and bone density tests to be conducted. - Consider preparing meals at home as a cost-effective weight management strategy. Orders: Orders Lipid Panel Today E55.9 - Vitamin D deficiency, unspecified, E66.09 - Other obesity due to excess calories, E78.9 - Disorder of lipoprotein metabolism, unspecified, M81.0 - Age-related osteoporosis without current pathological fracture, R73.01 - Impaired fasting glucose, R79.89 - Other specified abnormal findings of blood chemistry, Z00.01 - Encounter for general adult medical examination with abnormal findings XR DEXA axial skeleton Today M81.0 - Age-related osteoporosis without current pathological fracture Comprehensive [place]. Panel Fast Today E55.9 - Vitamin D deficiency, unspecified, E66.09 - Other obesity due to excess calories, E78.9 - Disorder of lipoprotein metabolism, unspecified, M81.0 - Age-related osteoporosis without current patho logical fracture, R73.01 - Impaired fasting glucose, R79.89 - Other specified abnormal findings of blood chemistry, Z00.01 - Encounter for general adult medical examination with abnormal findings TSH reflex Free T4 Today E55.9 - Vitamin D deficiency, unspecified, E66.09 - Other obesity due to excess calories, E78.9 - Disorder of lipoprotein metabolism, unspecified, M81.0 - Age-related osteoporosis without current pathological fracture, R73.01 - Impaired fasting glucose, R79.89 - Other specified abnormal findings of blood chemistry, Z00.01 - Encounter for general adult medical examination with abnormal findings Hemoglobin A1c Today E55.9 - Vitamin D deficiency, unspecified, E66.09 - Other obesity due to excess calories, E78.9 - Disorder of lipoprotein metabolism, unspecified, M81.0 - Age-related osteoporosis without current pathological fracture, R73.01 - Impaired fasting glucose, R79.89 - Other specified abnormal findings of blood chemistry, Z00.01 - Encounter for general adult medical examination with abnormal findings Vitamin D 25-OH (D2 and D3) Today E55.9 - Vitamin D deficiency, unspecified, E66.09 - Other obesity due to excess calories, E78.9 - Disorder of lipoprotein metabolism, unspecified, M81.0 - Age-related osteoporosis without current pathological fracture, R73.01 - Impaired fasting glucose, R79.89 - Other specified abnormal findings of blood chemistry, Z00.01 - Encounter for general adult medical examination with abnormal findings Medications: Refilled alendronate (Fosamax) 70 mg PO QWEEK 90 days 13 tabs 4RF rosuvastatin 5 mg PO DAILY 90 days 90 tabs 0RF
== END 2024-09-16 13:33 | disposition home or self-care (01) ==
PROVIDERS: PCP Internal Medicine; Visit Provider Internal Medicine
DX: Z00.00 Encounter for general adult medical examination without abnormal findings (principal); R79.89 Other specified abnormal findings of blood chemistry; E66.811 Obesity, class 1; Z68.31 Body mass index [BMI] 31.0-31.9, adult; R73.01 Impaired fasting glucose; E78.9 Disorder of lipoprotein metabolism, unspecified; E55.9 Vitamin D deficiency, unspecified; M81.0 Age-related osteoporosis without current pathological fracture

== ENCOUNTER → 2024-09-16 11:15 | Outpatient (BNVA) | payer OTHER, SELFPAY | PROVIDERS: PCP Internal Medicine; Visit Provider Internal Medicine | DX: Z00.01 Encounter for general adult medical examination with abnormal findings (principal); R79.89 Other specified abnormal findings of blood chemistry; R73.01 Impaired fasting glucose; E66.811 Obesity, class 1; E66.09 Other obesity due to excess calories; Z68.31 Body mass index [BMI] 31.0-31.9, adult; E78.9 Disorder of lipoprotein metabolism, unspecified; E55.9 Vitamin D deficiency, unspecified; M81.0 Age-related osteoporosis without current pathological fracture | CPT/HCPCS: 96127 ==

== ENCOUNTER 2024-09-24 07:21 | Outpatient (REF) | payer OTHER, SELFPAY ==
--- OUTSIDE RECORDS SUMMARY | 2024-09-24 07:23 | XMS_ITS | Encounter Summary ---
Author Organization [facility] Address [address] [place] [address] Care Team Providers Care Fisher Dip Net Name Role Phone Kate Patel MD Primary Care Provider Unavail able Encounter Details Date Type Department Care Team Description 04/10/2019 Telephone Adult Medicine [address] [address] Kate Patel MD Social History Tobacco Use Types Packs/Day Years Used Date Smoking Tobacco: Never Smokeless Tobacco: Never Alcohol Use Standard Drinks/Week Comments Yes 0 (1 standard drink = 0.6 oz pur e alcohol) Occasional Sex Assigned at Date Recorded Not on file documented as of this encounter Miscellaneous Notes * Telephone Encounter - Misty Davalos - 04/10/2019 10:11 AM EDT All attempts have been made to schedule patient for a colonoscopy, no returned calls. Removing fromGI work list. documented in this encounter Plan of Treatment Not on file documented as of this encounter Visit Diagnoses Not on filedocumented in this encounter Care Teams Fisher Dip Net Relationship Specialty Start Date End Date Kate Patel MD PCP - General Internal Medicine 10/08/18 documented as of this encounter
--- OUTSIDE RECORDS SUMMARY | 2024-09-24 07:23 | XMS_ITS | Encounter Summary ---
Author Organization [facility] Address [address] [place] [address] Care Team Providers Care Wire Spiral Binder Name Role Phone Kate Patel MD Primary Care Provider Unavail able Reason for Visit * Reason Onset Date Comments Special Procedure 06/11/2019 Encounter Details Date Type Department Care Team Description 06/11/2019 Telephone Gastroenterology - [place] [address] [facility] [address] [place] [id number] Vinicio Saleem MD Special Procedure Social History Tobacco Use Types Packs/Day Years Used Date Smoking Tobacco: Never Smokeless Tobacco: Never Alcohol Use Standard Drinks/Week Comments Yes 0 (1 standard drink = 0.6 oz pur e alcohol) Occasional Sex Assigned at Date Recorded Not on file documented as of this encounter Miscellaneous Notes * Telephone Encounter - Lesa Jovel - 06/12/2019 10:35 AM EST Left message to call back. * Telephone Encounter - Daja Dillon - 06/11/2019 3:08 PM EST Patient is calling to have colonoscopy scheduled. Please call. documented in this encounter Plan of Treatment Not on file documented as of this encounter Visit Diagnoses Not on filedocumented in this encounter Care Teams Wire Spiral Binder Relationship Specialty Start Date End Date Kate Patel MD PCP - General Internal Medicine 10/08/18 documented as of this encounter
== END 2024-09-24 07:22 | disposition home or self-care (01) ==
LOC: HO.MAMMO 07:21
PROVIDERS: PCP Internal Medicine; Visit Provider Internal Medicine
DX: Z12.31 Encounter for screening mammogram for malignant neoplasm of breast (principal)
CPT/HCPCS: 77063; 77067

== ENCOUNTER → 2024-09-24 07:30 | Outpatient (BNV) | payer OTHER, SELFPAY | PROVIDERS: PCP Internal Medicine; Visit Provider Internal Medicine | DX: Z12.31 Encounter for screening mammogram for malignant neoplasm of breast (principal) | CPT/HCPCS: 77063; 77067 ==

== ENCOUNTER 2024-10-31 14:14 | Outpatient (REF) | payer OTHER, SELFPAY ==
--- NOTE | ~2024-10-31 | MM_ITS ---
EXAMINATION: DXA BONE DENSITY AXIAL HISTORY: Estrogen deficiency TECHNIQUE: [employer] Dual energy absorptiometry (DEXA) of the lumbar spine, total left hip, and femoral neck was performed. COMPARISON: Comparison is made with the prior examination dated 09/13/2022. FINDINGS: The bone mineral density of the lumbar spine is 0.834 with a T-score of -2.9, and a Z-score of -1.9. This is indicative of osteoporosis. This represents a BMD change of 14.6% compared to the prior exam. This is statistically significant. The bone mineral density of the left total hip is 0.838 with a T-score of -1.3, and a Z-score of -0.6. This is indicative of osteopenia. This represents a BMD change of -2.8% compared to the prior exam. This is not statistically significant. The bone mineral density of the left femoral neck is 0.759 with a T-score of -2.0, and a Z-score of -0.9. This is indicative of osteopenia. This represents a BMD change of 0.0% compared to the prior exam. FRACTURE RISK: The FRAX index suggests a ten year probability of major osteoporotic fracture of 9.6%, and of hip fracture 1.3%. MM/XR DEXA axial skeleton IMPRESSION: Based on bone mineral density, and according to World Health Organization (WHO) criteria, the diagnosis is consistent with osteoporosis. All bone density values are in grams per centimeter squared (g/cm2). Statistically, 68% of repeat scans fall within 1 SD (+/- 0.010 g/cm2 for AP spine L1-L4) and 1 SD (+/- 0.012 g/cm2 for femur total) FRAX is a trademark of the [employer] [place] [facility] Metabolic Bone Disease, a World Health Organization (WHO) Collaborating Center. Electronically signed by: Josep Dyer MD 10/31/2024 02:54 PM EDT
== END 2024-10-31 14:15 | disposition home or self-care (01) ==
LOC: HO.MAMMO 14:14
PROVIDERS: PCP Internal Medicine; Visit Provider Internal Medicine
DX: M81.0 Age-related osteoporosis without current pathological fracture (principal)
CPT/HCPCS: 77080

== ENCOUNTER → 2024-10-31 14:30 | Outpatient (BNV) | payer OTHER, SELFPAY | PROVIDERS: PCP Internal Medicine; Visit Provider Radiology Diagnostic Radiology | DX: E28.39 Other primary ovarian failure (principal) | CPT/HCPCS: 77080 ==

== ENCOUNTER 2024-11-21 14:53 | Outpatient (AMB) | payer OTHER, SELFPAY ==
[2024-11-21 14:56] VITALS: BP 134/72; PULSE 92; O2SAT 96; BMI 32.3
--- NOTE | 2024-11-21 14:56 | A.OFFPC_ITS ---
Vital Signs 11/21/24 14:56 Height 5 ft Weight 165 lb 4 oz BMI 32.3 BP 134/72 Blood Pressure Location Rt brachial Position Sitting Pulse 92 Pulse Source Pulse Oximeter Pulse Oximetry (%) 96 Oxygen Delivery Method Room Air Intake Visit Reasons: F/U month Allergies latex [LATEX] Allergy (Unknown, Verified 11/21/24 15:05) BREAK OUT - RASH Medication List - Last Reconciled 11/21/24 by Maycol Palacios MD alendronate (Fosamax) 70 mg PO QWEEK 90 days betamethasone dipropionate 0.05% 1 appl topical BID calcium carbonate (Antacid Calcium) 215 mg PO DAILY cholecalciferol (vitamin D3) 25 mcg PO DAILY ibuprofen 800 mg PO TID PRN rosuvastatin 5 mg PO DAILY 90 days Tobacco use date assessed: 11/21/24 Dental Screening Dental Screen Date: 11/21/24 Did you have a dental visit in the last 12 months?: Yes Did you have a dental problem in the last 6 months where you did not have access to dental care?: No Was dental information given to patient?: Patient has dentist HPI F/U month HPI Details History - The patient is a 59-year-old female pr esenting with a regular visit for ongoing health management and evaluation of laboratory results. - Prediabetes: The patient's fasting glu cose level was noted to be 104 during the last laboratory results in July, indicating prediabetes. The patient has a history of consistently undergoing blood work due to exposure to ethylene oxide at work. - Obesity: The patient has been struggli ng to maintain a healthy weight, with a current weight of 165 pounds. She had reduced her weight to 139 pounds the previous year after dietary interventions but regained weight following a shoulder injury. The patient is currently engaged in the Weight Watchers program. - Elevated Liver Enzymes: Laboratory res ults from July indicated that AST levels were slightly elevated (46), reducing to 45 in November. The patient reports that her liver enzymes have been slightly off and requires monitoring. - Fatty Liver (suspected): Given the dev vated liver enzyme levels and weight history, there is suspicion of fatty liver disease. The patient has not had an abdominal ultrasound in the past, and it is noted that losing weight often helps correct fatty liver conditions. - Lichen Sclerosus: The patient underwen t a skin biopsy right upper leg laterally recently for suspected Lichen Sclerosus by a hadoop developer at [facility]. She reported some discomfort associated with the biopsy site. - obesity, extensive discussion regardin g calorie count, amount of calories needed, refer to bariatric weight loss program placed Problem List - Prediabetes - Obesity - Elevated Liver Enzymes - Fatty Liver (suspected) - Lichen Sclerosus - Risk from Ethylene Oxide Exposure Patient Instructions - Continue with Weight Watchers but star t learning calorie contents of food to supplement benjamin use. - Maintain a daily caloric intake in acc ordance with weight goals. - Engage in consistent exercise, aiming for 10,000 steps per day. - Plan for another laboratory exam in [facility] to monitor prediabetes and liver enzymes. - Schedule an abdominal ultrasound to ev aluate liver condition. - Consider consulting a boot repairer and we ight loss program for structured support. - Monitor the biopsy site for signs of i nfection or discomfort. Review of Systems - General: No fever no chills - Neurological: No headaches no dizziness - Ear nose throat: No sore throat no hearing difficulty no ear pain - Cardiovascular: No syncope, no chest pain, no palpitations - Gastrointestinal: No nausea vomiting or diarrhea - Endocrine: No polyuria polydipsia no heat intolerance - Genitourinary: No dysuria , no blood in urine Physical Exam General: No acute distress HEENT: No acute findings Neck: Supple Respiratory system: Able to talk in full sentences, no audible wheeze Cardiovascular: S1-S2 regular in rate and rhythm Gastrointestinal: Mild tenderness in the liver area, no significant pain Extremities: No new findings FUNERAL HOME MANAGER: Alert awake oriented x3 motor sensory intact Skin: Normal turgor PFSH Medical History Lichen sclerosus Osteoporosis LFT elevation Impaired fasting blood sugar Colonoscopy planned Surgical History H/O colonoscopy History of tubal ligation Family History Maternal Aunt Melanoma Paternal Aunt Breast CA Mother Osteoporosis Father Heart disease Diabetes mellitus Dementia CVD (cardiovascular disease) Maternal Grandmother Osteoporosis Maternal Grandfather No problems noted. Paternal Grandmother No problems noted. Paternal Grandfather Cancer Son No problems noted. Daughter No problems noted. 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 [employer] Sexual orientation: Straight/Heterosexual Gender identity: Female Cognitive needs: No Hearing needs: No Vision needs: No Questionnaire Thrive Questionnaire Date Thrive assessed: 11/21/24 I am a: Patient What is your living situation today?: I have a steady place to live Within the past 12 months, did the food you bought not last and you didn't have the money to get more?: Never true Within the past 12 months, did you worry whether your food would run out before you got money to buy more?: Never true Do you have trouble paying for medicines?: No Do you have trouble getting transportation to medical appointments?: No Do you have trouble paying your heating and electricity bill?: No Do you have trouble taking care of your child, family member or friend?: No Do you have trouble with day-to-day activities such as bathing, preparing meals, shopping, managing finances, etc.?: No Are you currently unemployed and looking for a job?: No Are you interested in more education?: No Please select the resources that you would like help with: None Currently or been in a relationship where the following occur: I choose not to answer THRIVE Score: 0 AUDIT C Alcohol Use Questionnaire (AUDIT-C) 1. How often do you have a drink containing alcohol?: 2-4 times a month 2. How many drinks containing alcohol do you have on a typical day when you are drinking?: 1 or 2 3. How often do you have six or more drinks on one occasion?: Never Total Score: 2 Score Reviewed/Action Taken: Yes JAKOB-7 AMB Questionnaire JAKOB-7 Date JAKOB - 7 assessed: 10/10/23 Source: Developed by Drs. Josep Mendes, Marlena Melchor, Jurgen Barnett and colleagues, with an educational bryan from [employer]. Physical exam (Primary Care) Vital Signs: Last Vital Signs Pulse 92 11/21/24 14:56 BP 134/72 11/21/24 14:56 Pulse Ox 96 11/21/24 14:56 Oxygen Delivery Method Room Air 11/21/24 14:56 BMI result Body Mass Index 32.3 Tobacco/Smoking Status: Tobacco use Status Tobacco use date assessed 11/21/24 11/21/24 15:06 Patient Tobacco Use Status Never used Tobacco 11/21/24 14:56 e-Cigarette/Vaping Use Never Used 11/21/24 14:56 Thrive Assessment: Date of Thrive Assessment Date Thrive assessed 11/21/24 11/21/24 15:06 Currently or been in a relationship where the following occur: I choose not to answer Coding Level of Care Code Est Pt Level 3 (52787) Diagnoses LFT elevation R79.89 Class 1 obesity due to excess calories with serious comorbidity and body mass index (BMI) of 31.0 to 31.9 in adult E66.811; E66.09; Z68.31 Body mass index: BMI 31.0-31.9 Obesity classification: adult class 1 (BMI 30 - 34.9) Serious obesity comorbidity presence: with serious comorbidity Lipid disorder E78.9 Lichen sclerosus L90.0 Impaired fasting blood sugar R73.01 Assessment & Plan Assessment & Plan (1) LFT elevation: Code(s): R79.89 - Other specified abnormal findings of blood chemistry Category: Medical (2) Obesity due to excess calories: Code(s): E66.09 - Other obesity due to excess calories Category: Medical Qualifiers: Body mass index: BMI 31.0-31.9 Obesity classification: adult class 1 (BMI 30 - 34.9) Serious obesity comorbidity presence: with serious comorbidity Qualified Code(s): E66.811 - Obesity, class 1; E66.09 - Other obesity due to excess calories; Z68.31 - Body mass index [BMI] 31.0-31.9, adult (3) Lipid disorder: Code(s): E78.9 - Disorder of lipoprotein metabolism, unspecified Category: Medical (4) Lichen sclerosus: Code(s): L90.0 - Lichen sclerosus et atrophicus Category: Medical (5) Impaired fasting blood sugar: Code(s): R73.01 - Impaired fasting glucose Category: Medical Plan History - The patient is a 59-year-old female presenting with a regular visit for ongoing health management and evaluation of laboratory results. - Prediabetes: The patient's fasting glucose level was noted to be 104 during the last laboratory results in July, indicating prediabetes. The patient has a history of consistently undergoing blood work due to exposure to ethylene oxide at work. - Obesity: The patient has been struggling to maintain a healthy weight, with a current weight of 165 pounds. She had reduced her weight to 139 pounds the previous year after dietary interventions but regained weight following a shoulder injury. The patient is currently engaged in the Weight Watchers program. - Elevated Liver Enzymes: Laboratory results from July indicated that AST levels were slightly elevated (46), reducing to 45 in November. The patient reports that her liver enzymes have been slightly off and requires monitoring. - Fatty Liver (suspected): Given the elevated liver enzyme levels and weight history, there is suspicion of fatty liver disease. The patient has not had an abdominal ultrasound in the past, and it is noted that losing weight often helps correct fatty liver conditions. - Lichen Sclerosus: The patient underwent a skin biopsy right upper leg laterally recently for suspected Lichen Sclerosus by a hadoop developer at [facility]. She reported some discomfort associated with the biopsy site. - obesity, extensive discussion regarding calorie count, amount of calories needed, refer to bariatric weight loss program placed Problem List - Prediabetes - Obesity - Elevated Liver Enzymes - Fatty Liver (suspected) - Lichen Sclerosus - Risk from Ethylene Oxide Exposure Patient Instructions - Continue with Weight Watchers but start learning calorie contents of food to supplement benjamin use. - Maintain a daily caloric intake in accordance with weight goals. - Engage in consistent exercise, aiming for 10,000 steps per day. - Plan for another laboratory exam in January to monitor prediabetes and liver enzymes. - Schedule an abdominal ultrasound to evaluate liver condition. - Consider consulting a boot repairer and weight loss program for structured support. - Monitor the biopsy site for signs of infection or discomfort. Orders: Orders US abdomen complete Today R79.89 - Other specified abnormal findings of blood chemistry Referrals Bariatric Surgery Referral E66.09 - Other obesity due to excess calories, E66.811 - Obesity, class 1, Z68.31 - Body mass index [BMI] 31.0-31.9, adult
--- OUTSIDE RECORDS SUMMARY | 2024-11-21 15:01 | XMS_ITS | Encounter Summary ---
Author Organization [facility] Address [address] [place] [address] Care Team Providers Care It Systems Analyst Name Role Phone Kate Patel MD Primary Care Provider Unavail able Encounter Details Date Type Department Care Team Description 04/10/2019 Telephone Adult Medicine [address] [address] Kate Patel MD Social History Tobacco Use [...] on filedocumented in this encounter Care Teams It Systems Analyst Relationship Specialty Start Date End Date Kate Patel MD PCP - General Internal Medicine 10/08/18 documented as of this encounter
--- OUTSIDE RECORDS SUMMARY | 2024-11-21 15:01 | XMS_ITS | Encounter Summary ---
Author Organization [facility] Address [address] [place] [address] Care Team Providers Care Architectural Wood Model Maker Name Role Phone Kate Patel MD Primary Care Provider Unavail able Reason for Visit * Reason Onset Date Comments Special Procedure 06/11/2019 Encounter Details Date Type Department Care Team Description 06/11/2019 Telephone Gastroenterology - [place] [address] [place] [id number] Vinicio Saleem MD Special Procedure Social History [...] on filedocumented in this encounter Care Teams Architectural Wood Model Maker Relationship Specialty Start Date End Date Kate Patel MD PCP - General Internal Medicine 10/08/18 documented as of this encounter
== END 2024-11-21 15:34 | disposition home or self-care (01) ==
LOC: HO.HMCC 14:54
PROVIDERS: PCP Internal Medicine; Visit Provider Internal Medicine
DX: R79.89 Other specified abnormal findings of blood chemistry (principal); E66.811 Obesity, class 1; E66.09 Other obesity due to excess calories; Z68.31 Body mass index [BMI] 31.0-31.9, adult; E78.9 Disorder of lipoprotein metabolism, unspecified; L90.0 Lichen sclerosus et atrophicus; R73.01 Impaired fasting glucose

== ENCOUNTER → 2024-11-21 14:53 | Outpatient (BNVA) | payer OTHER, SELFPAY | PROVIDERS: PCP Internal Medicine; Visit Provider Internal Medicine | DX: Z13.89 Encounter for screening for other disorder (principal) ==

== ENCOUNTER 2024-12-08 07:18 | Outpatient (REF) | payer OTHER, SELFPAY ==
--- NOTE | ~2024-12-08 | US_ITS ---
CLINICAL HISTORY: R79.89 - Other specified abnormal findings of blood chemistry Exam: 1. Ultrasound of the abdomen, complete. 2. Duplex ultrasound of the main portal vein. Comparison: None. Findings: Liver is of normal size echotexture without focal lesion or intrahepatic biliary ductal dilatation. Common bile duct is within normal limits. Gallbladder is unremarkable without gallbladder wall thickening, pericholecystic fluid, or cholelithiasis. Negative sonographic Nicole's sign. Pancreas and spleen unremarkable. Kidneys are of echotexture without focal lesions hydronephrosis. Aorta and inferior vena cava are patent. No free fluid. Duplex evaluation of the main portal vein was performed. This included real-time grayscale, color spectral Doppler analysis, and color Doppler flow imaging. Main portal vein is patent with hepatopetal flow. Impression: Negative abdominal ultrasound. This document has been electronically signed by: Benjamin Reynolds MD on 12/08/2024 09:24:47
--- OUTSIDE RECORDS SUMMARY | 2024-12-08 07:20 | XMS_ITS | Clinical Summary ---
Author Organization [facility] Address [address] [place] [address] Care Team Providers Care Tenter Frame Operator Name Role Phone Kate Patel MD Primary Care Provider Unavail able Allergies No known active allergies Medications Medication Sig Dispensed Refills Start Date End Date Status hydrocortisone (ANUSOL-HC) 2.5 % rectal cream Apply to effected area 2 to 4 times a day. 30 g 0 05/26/2019 Active bisacodyl (DULCOLAX) 5 MG EC tablet Take 1 tab daily 20 Tab 0 05/26/2019 Active Active Problems Problem Noted Date Patient non-compliant, refused service 0 04/10/2019 Overview: All attempts exahusted to schedule colonoscopy Obesity (BMI 30-39.9) 03/04/2019 Colon polyp 03/04/2019 Osteopenia 03/04/2019 Family History Medical History Relation Name Comments No Known Problems Brother 1 No Known Problems Brother 2 Alzheimers Disease Father Osteoporosis Mother Arthritis No Known Problems Sister Relation Name Status Comments Brother 1 Brother 2 Father Mother Sister Social History Tobacco Use Types Packs/Day Years Used Date Smoking Tobacco: Never Smokeless Tobacco: Never Alcohol Use Standard Drinks/Week Comments Yes 0 (1 standard drink = 0.6 oz pur e alcohol) Occasional Sex Assigned at Date Recorded Not on file Last Filed Vital Signs Vital Sign Reading Time Taken Comments Blood Pressure 116/62 05/26/2019 10:40 AM EDT Pulse 78 05/26/2019 10:40 AM EDT Temperature 36.7 ??C (98.1 ??F) 05/26/2019 10:40 AM E DT Respiratory Rate 17 05/26/2019 10:40 AM EDT Oxygen Saturation - - Inhaled Oxygen Concentration - - Weight 83.6 kg (184 lb 6.4 oz) 05/26/2019 10:40 AM EDT Height 152.4 cm (5') 05/26/2019 10:40 AM EDT Body Mass Index 36.01 05/26/2019 10:40 AM EDT Plan of Treatment Health Maintenance Due Date Last Done Comments Covid-19 Vaccine (#1) 1965 CERVICAL CANCER SCREENING 01/31/1984 COLON CANCER SCREENING 2013 SHINGLES VACCINE (1 of 2) 2013 MAMMOGRAM 04/15/2020 04/15/2019, 02/2019, 12/24/2015, Additional history exists BASELINE HEALTH EXAM 40-64 03/04/2021 03/04/2019, CHOLESTEROL SCREENING 03/04/2024 03/04/2019 BMI CHECK/ADVISE 08/06/2024 05/26/2019, , 03/04/2019, Additional history exists INFLUENZA (Season Ended) 2025 DTAP/TDAP/TD (2 - Td or Tdap) 07/06/2026 07/06/2016 (Completed) PNEUMOCOCCAL VACCINE FOR HIGH RISK PATIENTS (#1) 01/31/2028 HEPATITIS C SCREENING Addressed 03/04/2019 Overri dden with the intention of not completing the topic Insurance Payer Benefit Plan / Group Subscriber ID Effective Dates Phone Address Type [employer] POS $20/30 [place] [id number] [facility] [id number] 2018-Robb mayo [address] [place] [address] POS Fee-for-Se rvice [employer] HMO $30 [place] [id number] Effective for all dates [address] [place] [address] HMO Fee-for-Se rvice [employer] HMO $20 [place] [id number] Effective for all dates [address] [place] [address] HMO Fee-for-Se rvice Care Teams Tenter Frame Operator Relationship Specialty Start Date End Date Kate Patel MD PCP - General Internal Medicine 10/08/18
== END 2024-12-08 07:19 | disposition home or self-care (01) ==
LOC: HO.US 07:18
PROVIDERS: PCP Internal Medicine; Visit Provider Internal Medicine
DX: R79.89 Other specified abnormal findings of blood chemistry (principal)
CPT/HCPCS: 76700

== ENCOUNTER → 2024-12-08 07:20 | Outpatient (BNV) | payer OTHER, SELFPAY | PROVIDERS: PCP Internal Medicine; Visit Provider Radiology Diagnostic Radiology | DX: R79.89 Other specified abnormal findings of blood chemistry (principal) | CPT/HCPCS: 76700 ==

== ENCOUNTER 2024-12-11 09:28 | Outpatient (AMB) | payer OTHER, SELFPAY ==
[2024-12-11 09:35] VITALS: BP 104/76; PULSE 72; O2SAT 96; BMI 32.0
--- NOTE | 2024-12-11 09:35 | A.OFFVIS_ITS ---
Vital Signs 12/11/24 09:35 Height 5 ft 0.59 in Weight 167 lb 5.294 oz BMI 32.0 BP 104/76 Blood Pressure Location Rt brachial Position Sitting Pulse 72 Pulse Source Pulse Oximeter Pulse Oximetry (%) 96 Oxygen Delivery Method Room Air Intake Visit Reasons: Osteoporosis/ pre diabetes Intake Note: Patient present today for Osteoporosis follow up. 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 First diagnosed in 09/2022 . Not Received treatment in the past No history of pathologic fracture or ONJ. Has several servings of dietary calcium per day in the form of yogurt, cheese , broccoli . Takes Calcium supplement 1200 mg mg daily in divided doses. Takes 1000 IU of Vitamin D daily. Denies ever using PPI, anticoagulant, antiepileptic or glucocorticoid medication. 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 Has crown to be fixed at end of mo DXA dated 09/13/22 :FINDINGS: AP SPINE L1-L4: Current: BMD 0.728 g/cm2, Z-score -3.0, T-score -3.8, osteoporosis, 21.9% decrease from baseline (<5% change is not significant). Baseline: BMD 0.932 g/cm2. LEFT FEMUR, NECK: Current: BMD 0.759 g/cm2, Z-score -1.0, T-score -2.0, osteopenia. Baseline: BMD 0.796 g/cm2. LEFT FEMUR, TOTAL: Current: BMD 0.862 g/cm2, Z-score -0.5, T-score -1.2, osteopenia, 3.3% decrease from baseline (<5% change is not significant). Baseline: BMD 0.891 g/cm2. IDENTIFIED RISK FACTORS: Osteoporosis. Menopause. HISTORY OF FRACTURE: None listed. MEDICATIONS: Calcium supplement or multivitamin. Vitamin D. MM/XR DEXA axial skeleton IMPRESSION: 1. DIAGNOSIS: Osteoporosis based on the lowest T-score value of -3.8 in the lumbar spine applying World Health Organization criteria.? Labs: Secondary workup was negative. Patient currently on alendronate started by PCP on 1 yr ago . Tolerating nicely The patient is a 59-year-old female presenting with osteoporosis. Approximately a year ago, she began taking alendronate (Fosamax), prompted by concerns about her family history of osteoporosis. Her apprehension subsided after witnessing her aunt's severe condition. She has strictly adhered to the regimen by taking the medication properly. Recently, she underwent a second bone density test that demonstrated improvement, specifically in the spine and hip areas. While the patient acknowledges her history of prediabetes, current efforts are focused on managing her osteoporosis while considering her overall health. She remains intolerant of a significant reduction in body weight due to potential adverse effects on bone density, emphasizing a need to balance her condition with proper lifestyle management. - Bone density test indicates improvement with lowest T-score at negative 2.9. The patient is conscious of dietary choices in managing her prediabetes and osteoporosis. She expressed interest in nutritional counseling, previously referred but not followed through, and is seeking an appointment with a roofing machine operator. She maintains that weight hasn't been too excessive but acknowledges the fine line in managing weight to support both glucose levels and bone density. [facility] Medical History Lichen sclerosus Osteoporosis LFT elevation Impaired fasting blood sugar Colonoscopy planned Surgical History H/O colonoscopy History of tubal ligation Family History Maternal Aunt Melanoma Paternal Aunt Breast CA Mother Osteoporosis Father Heart disease Diabetes mellitus Dementia CVD (cardiovascular disease) Maternal Grandmother Osteoporosis Maternal Grandfather No problems noted. Paternal Grandmother No problems noted. Paternal Grandfather Cancer Son No problems noted. Daughter No problems noted. Social History Household Members: None Housing: House Alcohol intake: current Alcohol intake frequency: holidays/special occasions only Patient Tobacco Use Status: Never used Tobacco e-Cigarette/Vaping Use: Never Used service: No Current occupational status: employed Current occupation: [employer] Sexual orientation: Straight/Heterosexual Gender identity: Female Cognitive needs: No Hearing needs: No Vision needs: No Physical Exam Vital Signs: Last Vital Signs Pulse 72 12/11/24 09:35 BP 104/76 12/11/24 09:35 Pulse Ox 96 12/11/24 09:35 Oxygen Delivery Method Room Air 12/11/24 09:35 BMI result Body Mass Index 32.0 Assessment & Plan Assessment & Plan (1) Osteoporosis: Code(s): M81.0 - Age-related osteoporosis without current pathological fracture Category: Medical Qualifiers: Osteoporosis type: age-related Presence of current pathological fracture: without current pathological fracture Qualified Code(s): M81.0 - Age- related osteoporosis without current pathological fracture Plan: This is a 59-year-old white female with a history of osteoporosis. P secondary workup was negative. Repeat DEXA did show osteoporosis but to a lesser degree. Patient is currently on alendronate plan is to continue calcium and vitamin-D supplementation as well as alendronate. We will check urine NTX. 1. Osteoporosis The patient will continue on alendronate due to demonstrated improvement. Plans include following up in a year to reassess bone density and performing a urine NTX test to measure medication effectiveness. 2. Prediabetes The patient was advised to seek nutritional counseling as part of comprehensive management for prediabetes. Adequate balance in weight status is essential to avoid negative effects on bone health. The patient had an opportunity to ask questions regarding treatment plan. The patient expressed understanding and agreement with the above treatment plan. I discussed the current management of osteoporosis with the patient, including the importance of continued adherence to alendronate, which has demonstrated effectiveness with improved bone mineral density results. The urine NTX test was ordered to monitor the biochemical response to alendronate. For prediabetes, I proposed a balanced nutritional approach and provided a referral to a roofing machine operator, emphasizing that drastic weight loss should be avoided to prevent potential harm to her bone health. She comprehended and agreed with the plan of care continuance for osteoporosis, inclusive of future monitoring and was supportive of dietary consultations to manage prediabetes. - Continue taking alendronate as prescribed, ensuring proper administration with a full glass of water and on an empty stomach. - Schedule a urine NTX test for biochemical monitoring; follow the fasting and specimen collection instructions. - Follow up with a roofing machine operator for nutritional advice to manage prediabetes. - Monitor for any fractures or symptoms and report any change. - Return in one year for reassessment of bone health. - Orders: Orders Collagen Crosslinks NTX Today M81.0 - Age-related osteoporosis without current pathological fracture Referrals Nutrition/Dietitian Referral E66.09 - Other obesity due to excess calories, E66.811 - Obesity, class 1, Z68.31 - Body mass index [BMI] 31.0-31.9, adult Coding Level of Care Code Est Pt Level 3 (82691) Diagnoses Age-related osteoporosis without current pathological fracture M81.0 Osteoporosis type: age-related Presence of current pathological fracture: without current pathological fracture
== END 2024-12-11 09:56 | disposition home or self-care (01) ==
LOC: HO.ENCR 09:29
PROVIDERS: PCP Internal Medicine; Visit Provider Internal Medicine Endocrinology, Diabetes & Metabolism
DX: M81.0 Age-related osteoporosis without current pathological fracture (principal)
CPT/HCPCS: 99213

== ENCOUNTER 2024-12-15 07:16 | Outpatient (REF) | payer OTHER, SELFPAY ==
[2024-12-24 08:59] LABS: N-Telopeptide 19 (see note); NTXCreaRU 71 mg/dL (20-275)
== END 2024-12-15 07:17 | disposition home or self-care (01) ==
LOC: HO.LNP 07:16
PROVIDERS: Visit Provider Internal Medicine Endocrinology, Diabetes & Metabolism
DX: M81.0 Age-related osteoporosis without current pathological fracture (principal)
CPT/HCPCS: 82523

== ENCOUNTER 2025-01-07 06:05 | Outpatient (REF) | payer OTHER, SELFPAY ==
--- OUTSIDE RECORDS SUMMARY | 2025-01-07 06:07 | XMS_ITS | Patient Health Record ---
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 . . 2-3x/week for 3-4 weeks Active Problems No Known Problems Plan Of Treatment Pending Test Test Name Order Date [id number] TENDON SHEATH/LIGAMENT 0 11/09/2015 Insurance Providers Payer Name Payer Address Payer Phone Subscriber Number Group Number Insured Name Patient Relationship to Insured Coverage Start Date Coverage End Date [facility] [address] [facility] [address] [id number] Mara Maki Self - patient is the insured Medical (General) History Medical History History ICD Code Chicken pox Surgical History Surgery Date(Month/Year) tubal ligation 1989
[2025-01-07 07:24] LABS: Estimated Average Glucose 114 mg/dL; Hemoglobin A1c % 5.6 % (<6.0)
[2025-01-07 07:56] LABS: Alanine Aminotransferase 51 U/L (0-31); Albumin Level 4.3 g/dL (3.5-5.0); Anion Gap 14 (12-20); Aspartate Amino Transferase 45 U/L (5-31); Bilirubin Total 0.4 mg/dL (0.0-1.0); Blood Urea Nitrogen 20 mg/dL (9-16); Calcium 9.4 mg/dL (8.4-10.2); Carbon Dioxide 28 mmol/L (22-29); Chloride 107 mmol/L (96-108); Cholesterol 188 mg/dL (<200); Estimated Glomerular Filt Rate > 60; Glucose Fasting 100 mg/dL (60-99); HDL Cholesterol 54 mg/dL (>40); LDL Cholesterol Calculated 114 mg/dL (<100); Potassium 4.2 mmol/L (3.3-5.1); Sodium 145 mmol/L (135-145); Total Protein 7.1 g/dL (6.5-8.0); Triglycerides 100 mg/dL (<150)
[2025-01-07 08:09] LABS: TSH reflex Free T4 1.32 uIU/mL (0.32-4.0)
[2025-01-07 13:11] LABS: Alkaline Phosphatase 62 U/L (39-117)
[2025-01-14 13:08] LABS: Vitamin D 25-OH, D2 <4 ng/mL; Vitamin D 25-OH, D3 32 ng/mL; Vitamin D 25-OH, Total 32 ng/mL (30-100)
== END 2025-01-07 06:06 | disposition home or self-care (01) ==
LOC: HO.LAB 06:05
PROVIDERS: PCP Internal Medicine; Visit Provider Internal Medicine
DX: Z00.01 Encounter for general adult medical examination with abnormal findings (principal); E55.9 Vitamin D deficiency, unspecified; M81.0 Age-related osteoporosis without current pathological fracture; E66.09 Other obesity due to excess calories; R73.01 Impaired fasting glucose; R79.89 Other specified abnormal findings of blood chemistry; E78.9 Disorder of lipoprotein metabolism, unspecified
CPT/HCPCS: 36415; 80053; 80061; 82306; 83036; 84443

== ENCOUNTER 2025-01-19 09:49 | Outpatient (AMB) | payer OTHER, SELFPAY ==
[2025-01-19 10:01] VITALS: BMI 32.7
--- NOTE | 2025-01-19 10:01 | A.OFFVIS_ITS ---
VS Expanded 01/19/25 10:01 01/28/25 17:24 Height 5 ft 0.59 in 5 ft Weight 170 lb 13.732 oz 170 lb BMI 32.7 33.2 Intake Visit Reasons: Obesity Allergies latex (LATEX) Allergy (Unknown, Verified 12/11/24 09:36) BREAK OUT - RASH Nutrition Presentation Details: Pt presents for MNT for class 1 obesity and IFG. Pt reports working on modifying portions/carbs and protein and meal planning Typical meal intake rice cakes with peanut butter and 2 fruits lunch: chicken salad or low carb bread yogurt, water', diet beverage snack: coffee and snack protein bar, chips dinner chicken/beef/pork /starch/veg, water physical activity : sedentary food frequency fruits: 2/d fish: 1x/wk dairy: 1/d vegetables 2-3 x/day beverages: water/diet beverates > 24 oz/d BS Monitoring Most Recent Diabetes Results: Cholesterol, (<200) 188 mg/dL 01/07/25 HDL Cholesterol, (>40) 54 mg/dL 01/07/25 Triglycerides, (<150) 100 mg/dL 01/07/25 Creatinine, (0.5-1.4) 0.67 mg/dL 01/07/25 BUN, (9-16) 20 mg/dL H 01/07/25 Sodium, (135-145) 145 mmol/L 01/07/25 Potassium, (3.3-5.1) 4.2 mmol/L 01/07/25 Chloride, (96-108) 107 mmol/L 01/07/25 Carbon Dioxide, (22-29) 28 mmol/L 01/07/25 Calcium, (8.4-10.2) 9.4 mg/dL 01/07/25 AST, (5-31) 45 U/L H 01/07/25 ALT, (0-31) 51 U/L H 01/07/25 Total Protein, (6.5-8.0) 7.1 g/dL 01/07/25 Albumin, (3.5-5.0) 4.3 g/dL 01/07/25 ZLX-Asfmesc-Nw.Jeor Equation Height: 5 ft Weight: 170 lb Resting Metabolic Rate: 1261.72 Calculated Activity Level: Sedentary Calories Needed to Maintain Weight: 1514.06 Diagnosis Nutrition problem #1: food nutri know defi As related to (etiology) #1: diagnosis (pre DM , obesity ) As evidenced by (sign/symptom) #1: high BMI [facility] Medical History Lichen sclerosus Osteoporosis LFT elevation Impaired fasting blood sugar Colonoscopy planned Surgical History H/O colonoscopy History of tubal ligation Family History Maternal Aunt Melanoma Paternal Aunt Breast CA Mother Osteoporosis Father Heart disease Diabetes mellitus Dementia CVD (cardiovascular disease) Maternal Grandmother Osteoporosis Maternal Grandfather No problems noted. Paternal Grandmother No problems noted. Paternal Grandfather Cancer Son No problems noted. Daughter No problems noted. Social History Household Members: None Housing: House Alcohol intake: current Alcohol intake frequency: holidays/special occasions only Patient Tobacco Use Status: Never used Tobacco e-Cigarette/Vaping Use: Never Used service: No Current occupational status: employed Current occupation: [employer] Sexual orientation: Straight/Heterosexual Gender identity: Female Cognitive needs: No Hearing needs: No Vision needs: No Assessment & Plan Assessment & Plan (1) Obesity due to excess calories: Comment: with hx of IFG Code(s): E66.09 - Other obesity due to excess calories Category: Medical Qualifiers: Obesity classification: adult class 1 (BMI 30 - 34.9) Serious obesity comorbidity presence: with serious comorbidity Body mass index: BMI 31.0-31.9 Qualified Code(s): E66.811 - Obesity, class 1; E66.09 - Other obesity due to excess calories; Z68.31 - Body mass index [BMI] 31.0-31.9, adult Plan: Wt: 77 Kg ( 01/28 ) Est kcal needs as per MSJ: 1500 (40% carb, 30% protein/fat) Est fluid needs as per 25-30 ml/d: 2300 Est prot per day as per 1 g/kg bw: 80 Recommend fiber intake : 8-10 g per day and gradually increase to 25-28 g per day for women and 35-38 g for men or as tolerated Recommend sodium intake per day : less than 2300 mg Educated patient on: ( R = reviewed V = verbalizes understanding N/R = needs review N/A = not applicable * Food sources of carbohydrate, adequate serving sizes and its role in various health conditions: R V N/R * Differences between complex carbohydrates a simple carbohydrates, role of fiber in diet: R * Lean protein sources of foods: R * Differences between types of fats and role in diet (mono on saturated fat fatty acids, saturated fatty acids, trans fats): R basic * Food sources of sodium in salt and healthy modifications for heart health in kidney health: R V R/V * Vitamins and minerals: R V N/R * Healthy plate method concept: R V N/R * Physical activity: Benefits a precaution: R V N/R * Hypoglycemia protocol (rule of 15): R V N/R * Dietary prevention of Hyperglycemia: R Patient Instructions: Practice mindful eating Reduce total carb at meal to less than 45 g see meal plan as reference Coding Level of Care Code Nutr Indiv Intake (47567) Diagnoses Class 1 obesity due to excess calories with serious comorbidity and body mass index (BMI) of 31.0 to 31.9 in adult E66.811; E66.09; Z68.31 Obesity classification: adult class 1 (BMI 30 - 34.9) Serious obesity comorbidity presence: with serious comorbidity Body mass index: BMI 31.0-31.9 Time Spent (min) 30
--- OUTSIDE RECORDS SUMMARY | 2025-01-19 10:49 | XMS_ITS | Patient Health Record ---
Author Organization [facility] Address [address] [place] [address] Care Team Providers Care Support Services Manager Name Role Phone Chance Turner MD Primary Care Provider Luisana Ibarra Unavailable [phone] Allergies Allergen (clinical drug ingredient) Drug/Non Drug [...] Treatment Pending Test Test Name Order Date [id number] TENDON SHEATH/LIGAMENT 0 11/09/2015 Insurance Providers Payer Name Payer Address Payer Phone Subscriber Number Group Number Insured Name Patient Relationship to Insured Coverage Start Date Coverage End Date [facility] [address] [facility] [address] [phone] [id number] Mara Maki Self - patient is the insured Medical (General) History Medical History History ICD Code Chicken pox Surgical History Surgery Date(Month/Year) tubal ligation 1989
[2025-01-28 17:24] VITALS: BMI 33.2
== END 2025-01-19 10:42 | disposition home or self-care (01) ==
LOC: HO.ENCR 09:50
PROVIDERS: PCP Internal Medicine; Visit Provider Dietitian, Registered
DX: E66.811 Obesity, class 1 (principal); E66.09 Other obesity due to excess calories; Z68.31 Body mass index [BMI] 31.0-31.9, adult

== ENCOUNTER → 2025-01-19 09:49 | Outpatient (BNVA) | payer OTHER, SELFPAY | PROVIDERS: PCP Internal Medicine; Visit Provider Dietitian, Registered | DX: Z71.3 Dietary counseling and surveillance (principal); E66.09 Other obesity due to excess calories; E66.811 Obesity, class 1; Z68.31 Body mass index [BMI] 31.0-31.9, adult | CPT/HCPCS: 97802 ==

== ENCOUNTER 2025-03-17 08:52 | Outpatient (AMB) | payer OTHER, SELFPAY ==
--- NOTE | 2025-03-17 09:13 | A.OFFVIS_ITS ---
VS Expanded 03/17/25 09:14 Height 5 ft Weight 175 lb 4.28 oz BMI 34.2 Intake Visit Reasons: pre dm obesity Allergies latex (LATEX) Allergy (Unknown, Verified 12/11/24 09:36) BREAK OUT - RASH Nutrition Presentation Details: Pt presents for MNT f/u for obesity class 1 , ifg challenges during celebration this weekend and challenges with bedtime snack walking> 05856 per day BS Monitoring Most Recent Diabetes Results: Cholesterol, (<200) 188 mg/dL 01/07/25 HDL Cholesterol, (>40) 54 mg/dL 01/07/25 Triglycerides, (<150) 100 mg/dL 01/07/25 Creatinine, (0.5-1.4) 0.67 mg/dL 01/07/25 BUN, (9-16) 20 mg/dL H 01/07/25 Sodium, (135-145) 145 mmol/L 01/07/25 Potassium, (3.3-5.1) 4.2 mmol/L 01/07/25 Chloride, (96-108) 107 mmol/L 01/07/25 Carbon Dioxide, (22-29) 28 mmol/L 01/07/25 Calcium, (8.4-10.2) 9.4 mg/dL 01/07/25 AST, (5-31) 45 U/L H 01/07/25 ALT, (0-31) 51 U/L H 01/07/25 Total Protein, (6.5-8.0) 7.1 g/dL 01/07/25 Albumin, (3.5-5.0) 4.3 g/dL 01/07/25 [facility] Medical History Lichen sclerosus Osteoporosis LFT elevation Impaired fasting blood sugar Colonoscopy planned Surgical History H/O colonoscopy History of tubal ligation Family History Maternal Aunt Melanoma Paternal Aunt Breast CA Mother Osteoporosis Father Heart disease Diabetes mellitus Dementia CVD (cardiovascular disease) Maternal Grandmother Osteoporosis Maternal Grandfather No problems noted. Paternal Grandmother No problems noted. Paternal Grandfather Cancer Son No problems noted. Daughter No problems noted. Social History Household Members: None Housing: House Alcohol intake: current Alcohol intake frequency: holidays/special occasions only Patient Tobacco Use Status: Never used Tobacco e-Cigarette/Vaping Use: Never Used service: No Current occupational status: employed Current occupation: [employer] Sexual orientation: Straight/Heterosexual Gender identity: Female Cognitive needs: No Hearing needs: No Vision needs: No Assessment & Plan Assessment & Plan (1) Obesity due to excess calories: Comment: with hx of IFG Code(s): E66.09 - Other obesity due to excess calories Category: Medical Qualifiers: Obesity classification: adult class 1 (BMI 30 - 34.9) Serious obesity comorbidity presence: with serious comorbidity Body mass index: BMI 31.0-31.9 Qualified Code(s): E66.811 - Obesity, class 1; E66.09 - Other obesity due to excess calories; Z68.31 - Body mass index [BMI] 31.0-31.9, adult Plan: Wt: 77 Kg ( 01/28 ), 79.5 (03/30) Est kcal needs as per MSJ: 1500 (40% carb, 30% protein/fat) Est fluid needs as per 25-30 ml/d: 2300 Est prot per day as per 1 g/kg bw: 80 Recommend fiber intake : 8-10 g per day and gradually increase to 25-28 g per day for women and 35-38 g for men or as tolerated Recommend sodium intake per day : less than 2300 mg Educated patient on: ( R = reviewed V = verbalizes understanding N/R = needs review N/A = not applicable * Food sources of carbohydrate, adequate serving sizes and its role in various health conditions: R V N/R * Differences between complex carbohydrates a simple carbohydrates, role of fiber in diet: R * Lean protein sources of foods: R * Differences between types of fats and role in diet (mono on saturated fat fatty acids, saturated fatty acids, trans fats): R basic * Food sources of sodium in salt and healthy modifications for heart health in kidney health: R basic low sodium * Vitamins and minerals: R V N/R * Healthy plate method concept: R V N/R * Physical activity: Benefits a precaution: R V N/R * Hypoglycemia protocol (rule of 15): R V N/R * Dietary prevention of Hyperglycemia: R * Patient Instructions: Reduce calories at bedtime to less than 150 - see list of options keep hydrated by having water/low sugar beverages with meals/snacks Coding Level of Care Code Nutr Indiv Subseq (62807) Diagnoses Class 1 obesity due to excess calories with serious comorbidity and body mass index (BMI) of 31.0 to 31.9 in adult E66.811; E66.09; Z68.31 Obesity classification: adult class 1 (BMI 30 - 34.9) Serious obesity comorbidity presence: with serious comorbidity Body mass index: BMI 31.0-31.9 Time Spent (min) 25
[2025-03-17 09:14] VITALS: BMI 34.2
--- OUTSIDE RECORDS SUMMARY | 2025-03-17 09:15 | XMS_ITS | Patient Health Record ---
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 . . 2-3x/week; Durat ion: 3-4 weeks 09/28/2015 Active Problems No Known Problems Plan Of Treatment Pending Test Test Name Order Date [id number] TENDON SHEATH/LIGAMENT 0 11/09/2015 Insurance Providers Payer Name Payer Address Payer Phone Subscriber Number Group Number Insured Name Patient Relationship to Insured Coverage Start Date Coverage End Date [facility] [address] [place] [address] [phone] [id number] MaraCora mcclureora Self - patient is the insured Medical (General) History Medical History History ICD Code Chicken pox Surgical History Surgery Date(Month/Year) tubal ligation 1989
== END 2025-03-17 09:34 | disposition home or self-care (01) ==
LOC: HO.ENCR 08:53
PROVIDERS: PCP Internal Medicine; Visit Provider Dietitian, Registered
DX: E66.811 Obesity, class 1 (principal); E66.09 Other obesity due to excess calories; Z68.31 Body mass index [BMI] 31.0-31.9, adult

== ENCOUNTER → 2025-03-17 08:52 | Outpatient (BNVA) | payer OTHER, SELFPAY | PROVIDERS: PCP Internal Medicine; Visit Provider Dietitian, Registered | DX: R73.03 Prediabetes (principal); E66.09 Other obesity due to excess calories | CPT/HCPCS: 97803 ==

== ENCOUNTER 2025-04-13 10:37 | Outpatient (AMB) | payer OTHER, SELFPAY ==
[2025-04-13 10:52] VITALS: BP 116/72; PULSE 80; TEMP 36.8; O2SAT 98; BMI 34.0
--- NOTE | 2025-04-13 10:52 | AM.OFFWIN_ITS ---
Intake Vital Signs 04/13/25 10:52 Height 5 ft Weight 174 lb BMI 34.0 BP 116/72 Blood Pressure Location Lt brachial Position Sitting Pulse 80 Pulse Source Pulse Oximeter Temp 98.2 F Temp Source Oral Pulse Oximetry (%) 98 Oxygen Delivery Method Room Air Intake Visit Reasons: ep possible broken toes on right foot Intake Note: pt presents with right foot pain, bruising and toe stiffening s/p injury by banging toes on her deck box on 04/03/25 Patient Tobacco Use Status: Never used Tobacco Allergies latex (LATEX) Allergy (Unknown, Verified 04/13/25 10:59) BREAK OUT - RASH Medication List - Last Reconciled 04/13/25 by Danita Mcconnell NP alendronate (Fosamax) 70 mg PO QWEEK 90 days calcium carbonate (Antacid Calcium) 215 mg PO DAILY cholecalciferol (vitamin D3) 25 mcg PO DAILY ibuprofen 800 mg PO Q8H PRN rosuvastatin 5 mg PO DAILY 90 days Do you need a note to return to daycare/school/sports/work: No HPI HPI Comments History of Present Illness Details 60 y/o Female patient who presents to [facility] walk in clinic with c/o right foot pain, bruising and toe stiffening s/p injury by banging toes on her deck box on 04/03/25. She has been Icing and elevating it for a week with minimal relief. Pain worse with closed toe shoes, walking and standing. [facility] Medical History Lichen sclerosus Osteoporosis LFT elevation Impaired fasting blood sugar Colonoscopy planned Surgical History H/O colonoscopy History of tubal ligation Family History Maternal Aunt Melanoma Paternal Aunt Breast CA Mother Osteoporosis Father Heart disease Diabetes mellitus Dementia CVD (cardiovascular disease) Maternal Grandmother Osteoporosis Maternal Grandfather No problems noted. Paternal Grandmother No problems noted. Paternal Grandfather Cancer Son No problems noted. Daughter No problems noted. Social History Household Members: None Housing: House Alcohol intake: current Alcohol intake frequency: holidays/special occasions only Patient Tobacco Use Status: Never used Tobacco e-Cigarette/Vaping Use: Never Used service: No Current occupational status: employed Current occupation: [employer] Sexual orientation: Straight/Heterosexual Gender identity: Female Cognitive needs: No Hearing needs: No Vision needs: No Review of Systems Const All systems reviewed & are unremarkable except as noted in HPI and below Physical Exam Vital Signs: Last Vital Signs Temp 98.2 F 04/13/25 10:52 Pulse 80 04/13/25 10:52 BP 116/72 04/13/25 10:52 Pulse Ox 98 04/13/25 10:52 Oxygen Delivery Method Room Air 04/13/25 10:52 BMI result Body Mass Index 34.0 Const General: no acute distress; No comfortable Nutritional Appearance: overweight Orientation/consciousness: patient oriented x3 Neuro Other: Walks with a slight Limp General: patient oriented x3 and moves all extremities Extrem Right lower extremity: foot Details: normal capillary refill, tenderness Location: of another digit Location: the 3rd digit, the 4th digit and over the nailbed and of the lateral foot Location: distally and in the mid-section and ecchymosis (right third/fourth toes. ) Left lower extremity: normal to inspection Psych Speech and movement: Normal speech and movement present Assessment & Plan Assessment & Plan (1) Injury of right foot including toes: Code(s): S99.921A - Unspecified injury of right foot, initial encounter Plan: Fracture Vs Strain vs Sprain Ordered Xray of right foot. Ice/Heat and rest joint. Continue to elevate foot. NSAIDs and Acetaminophen. Medications: Changed From ibuprofen 800 mg PO TID PRN 30 tabs 0RF pain S99.921A - Unspecified injury of right foot, initial encounter To ibuprofen 800 mg PO Q8H PRN 30 tabs 0RF pain S99.921A - Unspecified injury of right foot, initial encounter Coding Level of Care Code Est Pt Level 4 (93325) Diagnoses Injury of right foot including toes S99.921A Time Spent (min) 20
--- OUTSIDE RECORDS SUMMARY | 2025-04-13 12:49 | XMS_ITS | Patient Health Record ---
[facility] Address [address] [place] [address] Care Team Providers Care Resist Coater Developer Name Role Phone Chance Turner MD Primary Care Provider Luisana Ibarra Unavailable [phone] Allergies Allergen (clinical drug ingredient) Drug/Non Drug [...] Treatment Pending Test Test Name Order Date [id number] TENDON SHEATH/LIGAMENT 0 11/09/2015 Insurance Providers Payer Name Payer Address Payer Phone Subscriber Number Group Number Insured Name Patient Relationship to Insured Coverage Start Date Coverage End Date [facility] [address] [place] [address] [id number] Cora Terryora Self - patient is the insured Medical (General) History Medical History History ICD Code Chicken pox Surgical History Surgery Date(Month/Year) tubal ligation 1989
== END 2025-04-13 12:36 | disposition home or self-care (01) ==
PROVIDERS: PCP Internal Medicine; Visit Provider Nurse Practitioner Family
DX: S99.921A Unspecified injury of right foot, initial encounter (principal)

== ENCOUNTER 2025-04-13 10:37 | Outpatient (REF) | payer OTHER, SELFPAY ==
--- NOTE | ~2025-04-13 | XR_ITS ---
EXAMINATION: XR FOOT 3 OR MORE VIEWS RIGHT HISTORY: S99.921A - Unspecified injury of right foot, initial encounter COMPARISON: There are no prior studies available for comparison. FINDINGS: Three views of the right foot are submitted. Osseous mineralization is normal. There is no fracture or dislocation. The joint spaces are preserved. There is a small plantar calcaneal spur. The soft tissues are unremarkable. XR/XR foot RT min 3V IMPRESSION: Small plantar calcaneal spur. Otherwise unremarkable examination of the right foot. Electronically signed by: Josep Dyer MD 04/13/2025 11:32 AM EDT
== END 2025-04-13 10:38 | disposition home or self-care (01) ==
LOC: HO.HMGCX 10:37
PROVIDERS: PCP Internal Medicine; Visit Provider Nurse Practitioner Family
DX: S99.921A Unspecified injury of right foot, initial encounter (principal); X58.XXXA Exposure to other specified factors, initial encounter
CPT/HCPCS: 73630

== ENCOUNTER → 2025-04-13 11:15 | Outpatient (BNV) | payer OTHER, SELFPAY | PROVIDERS: PCP Internal Medicine; Visit Provider Radiology Diagnostic Radiology | DX: S99.921A Unspecified injury of right foot, initial encounter (principal) | CPT/HCPCS: 73630 ==

== ENCOUNTER 2025-04-16 08:13 | Outpatient (REF) | payer OTHER, SELFPAY ==
[2025-04-16 10:07] LABS: MANUAL DIFF FLAG NO
[2025-04-16 11:10] LABS: Hematocrit 41.2 % (37.0-47.0); Hemoglobin 14.0 g/dl (12.0-16.0); Imm Gran Abs Auto 0.01 X10*3/uL (0.00-0.03); Imm Gran Pct Auto 0.2 % (0.0-0.4); Lymphocytes Absolute Auto 1.7 X10*3/uL (1.2-4.9); Mean Corpuscular HGB Conc 34.0 g/dl (31.0-35.0); Mean Corpuscular Hemoglobin 30.0 pg (27.0-33.0); Mean Corpuscular Volume 88.4 fL (80.0-98.0); NRBC Abs Auto 0.000 X10*3/uL (0.0-0.012); NRBC Pct Auto 0.0 /100WBC (0.0-0.2); Platelet Count 306 X10*3/uL (160-400); Red Blood Count 4.66 X10*6/uL (4.20-5.50); White Blood Count 6.6 X10*3/uL (4.8-10.8)
[2025-04-16 11:20] LABS: Hemoglobin A1C 146.1795 umol/L; Total Hemoglobin (HGBA1C) 3648.6028 umol/L
[2025-04-16 12:08] LABS: Alanine Aminotransferase 41 U/L (0-31); Albumin Level 4.5 g/dL (3.5-5.0); Alkaline Phosphatase 60 U/L (39-117); Anion Gap 10 (12-20); Aspartate Amino Transferase 38 U/L (5-31); Blood Urea Nitrogen 20 mg/dL (9-16); Calcium 9.2 mg/dL (8.4-10.2); Carbon Dioxide 30 mmol/L (22-29); Chloride 105 mmol/L (96-108); Estimated Glomerular Filt Rate > 60; Potassium 4.2 mmol/L (3.3-5.1); Sodium 141 mmol/L (135-145); Total Protein 7.3 g/dL (6.5-8.0)
[2025-04-16 12:29] LABS: Vitamin B12 672 pg/mL (200-900)
[2025-04-16 12:57] LABS: Appearance Urine Clear; Glucose Urine UA Negative (Negative); PH 6.0 (5.0-9.0); Specific Gravity - Urine <= 1.005 (1.005-1.025)
[2025-04-21 15:42] LABS: Vitamin D 25-OH, D2 <4 ng/mL; Vitamin D 25-OH, D3 38 ng/mL; Vitamin D 25-OH, Total 38 ng/mL (30-100)
== END 2025-04-16 08:14 | disposition home or self-care (01) ==
LOC: HO.LAB 08:13
PROVIDERS: PCP Internal Medicine; Visit Provider Internal Medicine
DX: R53.83 Other fatigue (principal); R68.89 Other general symptoms and signs; M81.0 Age-related osteoporosis without current pathological fracture; E78.9 Disorder of lipoprotein metabolism, unspecified; R73.01 Impaired fasting glucose
CPT/HCPCS: 36415; 80053; 81003; 82306; 82607; 83036; 83721; 84443; 85025

== ENCOUNTER 2025-04-16 08:13 | Outpatient (AMB) | payer OTHER, SELFPAY ==
--- OUTSIDE RECORDS SUMMARY | 2025-04-16 09:05 | XMS_ITS | Patient Health Record ---
Author [facility] Address [address] [place] [address] Care Team Providers Care Field Merchandiser Name Role Phone Chance Turner MD Primary Care Provider Luisana Ibarra Unavailable [phone] Allergies Allergen (clinical drug ingredient) Drug/Non Drug [...] Treatment Pending Test Test Name Order Date [id number] TENDON SHEATH/LIGAMENT 0 11/09/2015 Insurance Providers Payer Name Payer Address Payer Phone Subscriber Number Group Number Insured Name Patient Relationship to Insured Coverage Start Date Coverage End Date [facility] [address] [place] [address] [id number] MaraCora mcclureora Self - patient is the insured Medical (General) History Medical History History ICD Code Chicken pox Surgical History Surgery Date(Month/Year) tubal ligation 1989
--- NOTE | 2025-04-16 09:47 | MHC.PC.OV ---
Intake Visit Reasons: general health/lab request Allergies latex (LATEX) Allergy (Unknown, Verified 04/13/25 10:59) BREAK OUT - RASH Medication List - Last Reconciled 04/16/25 by Maycol Palacois MD alendronate (Fosamax) 70 mg PO QWEEK 90 days calcium carbonate (Antacid Calcium) 215 mg PO DAILY cholecalciferol (vitamin D3) 25 mcg PO DAILY ibuprofen 800 mg PO Q8H PRN rosuvastatin 5 mg PO DAILY 90 days Tobacco use date assessed: 11/21/24 Dental Screening Dental Screen Date: 11/21/24 HPI general health/lab request HPI Details History of Present Illness The patient is a 60-year-old female presenting with dizziness and nausea. Dizziness and Nausea: - Episode of dizziness and nausea occurred 7 days ago in the morning. - Both symptoms resolved subsequently after the initial episode. - No recurrence of dizziness or nausea reported since. - No associated symptoms reported such as headache, vomiting, diarrhea, difficulty speaking, tingling, numbness, or bleeding tendencies. Fatigue: - Following the episode of dizziness, the patient reports feeling tired and experiencing low energy. - The onset of fatigue coincided with the resolution of dizziness and nausea. Medical History: - Osteoporosis, managed with Posamax. - Hyperlipidemia, managed with rosuvastatin. Medications: - Posamax for osteoporosis. - Vitamin D supplement. - Rosuvastatin for hyperlipidemia. Problem List - Recent episode of dizziness and nausea - Persistent fatigue - Osteoporosis - Hyperlipidemia Patient Instructions - Stay hydrated and rest sufficiently. - Monitor symptoms and report if condition worsens. - go for lab tests to ensure stability Review of Systems - General: No fever no chills - Neurological: No headaches no dizziness - Ear nose throat: No sore throat no hearing difficulty no ear pain - Cardiovascular: No syncope, no chest pain, no palpitations - Gastrointestinal: No nausea vomiting or diarrhea PFSH Medical History Right foot injury Injury of right foot including toes Lichen sclerosus Osteoporosis LFT elevation Impaired fasting blood sugar Colonoscopy planned Surgical History H/O colonoscopy History of tubal ligation Family History Maternal Aunt Melanoma Paternal Aunt Breast CA Mother Osteoporosis Father Heart disease Diabetes mellitus Dementia CVD (cardiovascular disease) Maternal Grandmother Osteoporosis Maternal Grandfather No problems noted. Paternal Grandmother No problems noted. Paternal Grandfather Cancer Son No problems noted. Daughter No problems noted. Social History Household Members: None Housing: House Alcohol intake: current Alcohol intake frequency: holidays/special occasions only Patient Tobacco Use Status: Never used Tobacco e-Cigarette/Vaping Use: Never Used service: No Current occupational status: employed Current occupation: [employer] Sexual orientation: Straight/Heterosexual Gender identity: Female Cognitive needs: No Hearing needs: No Vision needs: No Questionnaire Thrive Questionnaire Date Thrive assessed: 09/13/24 I am a: Patient What is your living situation today?: I have a steady place to live Within the past 12 months, did the food you bought not last and you didn't have the money to get more?: Never true Within the past 12 months, did you worry whether your food would run out before you got money to buy more?: Never true Do you have trouble paying for medicines?: No Do you have trouble getting transportation to medical appointments?: No Do you have trouble paying your heating and electricity bill?: No Do you have trouble taking care of your child, family member or friend?: No Do you have trouble with day-to-day activities such as bathing, preparing meals, shopping, managing finances, etc.?: No Are you currently unemployed and looking for a job?: No Are you interested in more education?: No Please select the resources that you would like help with: None Currently or been in a relationship where the following occur: I choose not to answer THRIVE Score: 0 JAKOB-7 AMB Questionnaire JAKOB-7 Date JAKOB - 7 assessed: 10/10/23 Source: Developed by Drs. Josep Mendes, Marlena Melchor, Juregn Barnett and colleagues, with an educational bryan from [employer]. Physical exam (Primary Care) Tobacco/Smoking Status: Tobacco use Status Tobacco use date assessed 11/21/24 04/16/25 09:48 Patient Tobacco Use Status Never used Tobacco 04/16/25 09:48 e-Cigarette/Vaping Use Never Used 04/16/25 09:48 Thrive Assessment: Date of Thrive Assessment Date Thrive assessed 09/13/24 04/16/25 09:48 Currently or been in a relationship where the following occur: I choose not to answer Telehealth Telehealth Telehealth Platform: [facility] Location of provider rendering services: practice address Location of patient: address on file Patient Identification confirmed using: Name, : Yes Telehealth method: video Patient verbally consented to treatment: Yes Patient verbally consented to billing insurance company: Yes Patient informed of any privacy concerns related to visit: Yes Minutes spent on Phone/Video with Pt.: 13 Coding Level of Care Code Tele Est Pt Level 3 (31459) Diagnoses Tired R53.83 Feeling unwell R68.89 Age-related osteoporosis without current pathological fracture M81.0 Osteoporosis type: age-related Presence of current pathological fracture: without current pathological fracture Lipid disorder E78.9 Assessment & Plan Assessment & Plan (1) Tired: Code(s): R53.83 - Other fatigue Category: Medical (2) Feeling unwell: Code(s): R68.89 - Other general symptoms and signs Category: Medical (3) Osteoporosis: Code(s): M81.0 - Age-related osteoporosis without current pathological fracture Category: Medical Qualifiers: Osteoporosis type: age-related Presence of current pathological fracture: without current pathological fracture Qualified Code(s): M81.0 - Age-related osteoporosis without current pathological fracture (4) Lipid disorder: Code(s): E78.9 - Disorder of lipoprotein metabolism, unspecified Category: Medical Plan History of Present Illness The patient is a 60-year-old female presenting with dizziness and nausea. Dizziness and Nausea: - Episode of dizziness and nausea occurred 7 days ago in the morning. - Both symptoms resolved subsequently after the initial episode. - No recurrence of dizziness or nausea reported since. - No associated symptoms reported such as headache, vomiting, diarrhea, difficulty speaking, tingling, numbness, or bleeding tendencies. Fatigue: - Following the episode of dizziness, the patient reports feeling tired and experiencing low energy. - The onset of fatigue coincided with the resolution of dizziness and nausea. Medical History: - Osteoporosis, managed with Posamax. - Hyperlipidemia, managed with rosuvastatin. Medications: - Posamax for osteoporosis. - Vitamin D supplement. - Rosuvastatin for hyperlipidemia. Problem List - Recent episode of dizziness and nausea - Persistent fatigue - Osteoporosis - Hyperlipidemia Patient Instructions - Stay hydrated and rest sufficiently. - Monitor symptoms and report if condition worsens. - go for lab tests to ensure stability Orders: Orders Complete Blood Count Auto Diff Today E78.9 - Disorder of lipoprotein metabolism, unspecified, M81.0 - Age-related osteoporosis without current pathological fracture, R53.83 - Other fatigue, R68.89 - Other general symptoms and signs, R73.01 - Impaired fasting glucose Vitamin D 25-OH (D2 and D3) Today E78.9 - Disorder of lipoprotein metabolism, unspecified, M81.0 - Age-related osteoporosis without current pathological fracture, R53.83 - Other fatigue, R68.89 - Other general symptoms and signs, R73.01 - Impaired fasting glucose TSH reflex Free T4 Today E78.9 - Disorder of lipoprotein metabolism, unspecified, M81.0 - Age-related osteoporosis without current pathological fracture, R53.83 - Other fatigue, R68.89 - Other general symptoms and signs, R73.01 - Impaired fasting glucose Comprehensive Met. Panel Today E78.9 - Disorder of lipoprotein metabolism, unspecified, M81.0 - Age-related osteoporosis without current pathological fracture, R53.83 - Other fatigue, R68.89 - Other general symptoms and signs, R73.01 - Impaired fasting glucose Vitamin B12 Today E78.9 - Disorder of lipoprotein metabolism, unspecified, M81.0 - Age-related osteoporosis without current pathological fracture, R53.83 - Other fatigue, R68.89 - Other general symptoms and signs, R73.01 - Impaired fasting glucose UA CC w/rflx Micro + Cult Today E78.9 - Disorder of lipoprotein metabolism, unspecified, M81.0 - Age-related osteoporosis without current pathological fracture, R53.83 - Other fatigue, R68.89 - Other general symptoms and signs, R73.01 - Impaired fasting glucose LDL Cholesterol Direct Today E78.9 - Disorder of lipoprotein metabolism, unspecified, M81.0 - Age-related osteoporosis without current pathological fracture, R53.83 - Other fatigue, R68.89 - Other general symptoms and signs, R73.01 - Impaired fasting glucose Hemoglobin A1c Today R73.01 - Impaired fasting glucose
== END 2025-04-16 11:08 | disposition home or self-care (01) ==
LOC: HO.HMCC 08:13
PROVIDERS: PCP Internal Medicine; Visit Provider Internal Medicine
DX: R53.83 Other fatigue (principal); R68.89 Other general symptoms and signs; M81.0 Age-related osteoporosis without current pathological fracture; E78.9 Disorder of lipoprotein metabolism, unspecified

== ENCOUNTER 2025-05-13 13:50 | Outpatient (AMB) | payer OTHER, SELFPAY ==
--- NOTE | 2025-05-13 13:51 | A.OFFVIS_ITS ---
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 Is having right breast tenderness for about 3 weeks. Information Interpreted: non-clinical & clinical Engineer Fishing Vessel: Engineer Fishing [employer] Present (luis eduardo) Accompanied by: Self / Same As Patient Allergies latex (LATEX) Allergy (Unknown, Verified 05/13/25 13:55) BREAK OUT - RASH Medication List - Last Reconciled 05/13/25 by Adrianne Sy LPN alendronate (Fosamax) 70 mg PO QWEEK 90 days calcium carbonate (Antacid Calcium) 215 mg PO DAILY cholecalciferol (vitamin D3) 25 mcg PO DAILY ibuprofen 800 mg PO Q8H PRN rosuvastatin 5 mg PO DAILY 90 days Do you need a note to return to daycare/school/sports/work: No HPI Comments Details: Patient is a postmenopausal woman 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 Weight Shifter concerns: right breast pain 3 weeks ago, no injuries, biopsies, surgies to the area. No nipple discharge or erythema. Currently sexually active. Denies any vaginal dryness or irritation. STI testing offered; she declines. Attempting to eat a healthy diet with calcium and vitamin D and stays active with exercise. Last pap smear; 2019, negative. Last mammogram; 2024. Colonoscopy is UTD. Family history of breast cancer. [facility] Medical History (Updated 05/13/25 @ 14:38 by Andra Keenan CNM) Breast pain, right Right foot injury Injury of right foot including toes Lichen sclerosus Osteoporosis LFT elevation Impaired fasting blood sugar Colonoscopy planned Surgical History H/O colonoscopy History of tubal ligation Family History Maternal Aunt Melanoma Paternal Aunt Breast CA Mother Osteoporosis Father Heart disease Diabetes mellitus Dementia CVD (cardiovascular disease) Maternal Grandmother Osteoporosis Maternal Grandfather No problems noted. Paternal Grandmother No problems noted. Paternal Grandfather Cancer Son No problems noted. Daughter No problems noted. Social History Household Members: None Housing: House Alcohol intake: current Alcohol intake frequency: holidays/special occasions only Patient Tobacco Use Status: Never used Tobacco e-Cigarette/Vaping Use: Never Used service: No Current occupational status: employed Current occupation: [employer] Sexual orientation: Straight/Heterosexual Gender identity: Female Cognitive needs: No Hearing needs: No Vision needs: No Female Reproductive History Menstrual Date of last pap smear: 06/01/20 History of abnormal pap smear: No Date of Mammogram: 09/24/24 History of abnormal mammogram: No Date of last Bone Density Screenin10/31/24 Review of Systems Const All systems reviewed & are unremarkable except as noted in HPI and below Reports as per HPI Eyes Reports no additional complaints ENT Reports no additional complaints Card Reports no additional complaints Resp Reports no additional complaints GI Reports as per HPI and Reports no additional complaints Reports as per HPI Musc Reports no additional complaints Skin/Breast Reports as per HPI Neuro Reports no additional complaints Psych Reports no additional complaints Endo Reports no additional complaints Timothy/Lymph Reports no additional complaints Aller/Immun Reports no additional complaints Physical Exam Vital Signs: Last Vital Signs BP 108/72 05/13/25 13:53 BMI result Body Mass Index 33.4 Const General: cooperative, healthy appearing, no acute distress, well developed and alert Orientation/consciousness: patient oriented x3 HEENT Head: Yes normal to inspection Eyes General: appearance normal, both eyes and all related structures Neck Neck: Yes normal visual inspection Thyroid: Thyroid normal Chest Chest palpation & inspection: normal inspection of the chest and other (no puckering, dimpling, peau de orange, retraction, discharge, masses) Breast/axilla inspection: normal inspection of the breasts Breast/axilla palpation: normal palpation of the breasts Resp Effort & Inspection: normal respiratory effort GI Inspection: Yes normal to inspection Palpation (GI): Soft to palpation Rectal Exam - Female: deferred General: Yes bladder normal to palpation External Female Exam: normal external appearance and normal appearance of the urethra Speculum Exam - Vagina: normal appearance of the vagina, normal palpation and normal vaginal discharge Speculum Exam - Cervix: normal appearance of the cervix and normal palpation Bimanual exam- vagina & uterus: normal bimanual exam, normal palpation, uterine size normal, bladder normal to palpation, normal palpation and non-tender Bimanual Exam- Adnexa, other: no masses Skin General skin exam: no rashes or lesions noted Rashes: no rashes Neuro General: patient oriented x3 Cognition (Neuro): normal cognition Extrem General: Yes normal to inspection Psych Attitude: cooperative Thought process: Normal thought process present Assessment & Plan Assessment & Plan (1) Breast pain, right: Code(s): N64.4 - Mastodynia Category: Medical (2) Encounter for well woman exam with routine gynecological exam: Code(s): Z01.419 - Encounter for gynecological examination (general) (routine) without abnormal findings Category: Medical Plan Discussed: Current recommendations for pap smears per ASCCP guidelines. Breast awareness, periodic self breast exams and yearly mammogram. Maintain a healthy lifestyle, well balanced diet including Calcium 1,200 mg and Vitamin D 600 IU daily, and routine exercise. Contact the office with any postmenopausal bleeding. Patient verbalizes understanding and agrees to the plan of care. She was given opportunity to ask questions and all questions were answered to the best of my ability. RTO in 1 year for annual inter com installer exam. This note is constructed using voice recognition software. While every effort has been made to ensure accuracy, foreign broadcast specialist errors may have been included. Orders: Orders HPV High risk Today Z01.419 - Encounter for gynecological examination (general) (routine) without abnormal findings Pap Smear Today Z01.419 - Encounter for gynecological examination (general) (routine) without abnormal findings US breast RT limited Today N64.4 - Mastodynia MM tomosynthesis diagnostic RT Today N64.4 - Mastodynia, Z12.31 - Encounter for screening mammogram for malignant neoplasm of breast Coding Level of Care Code Est Pt Prev Care 40-64y(99573) Diagnoses Breast pain, right N64.4 Encounter for well woman exam with routine gynecological exam Z01.419
[2025-05-13 13:53] VITALS: BP 108/72; BMI 33.4
== END 2025-05-13 14:56 | disposition home or self-care (01) ==
LOC: HO.HWS 13:50
PROVIDERS: PCP Internal Medicine; Visit Provider Advanced Practice Midwife
DX: Z01.419 Encounter for gynecological examination (general) (routine) without abnormal findings (principal); N64.4 Mastodynia
CPT/HCPCS: 99396; 99459

== ENCOUNTER 2025-05-13 13:50 | Outpatient (REF) | payer OTHER, SELFPAY | END 2025-05-13 13:51 | disposition home or self-care (01) | LOC: HO.LNP 13:50 | PROVIDERS: PCP Internal Medicine; Visit Provider Advanced Practice Midwife | DX: Z01.419 Encounter for gynecological examination (general) (routine) without abnormal findings (principal); Z11.51 Encounter for screening for human papillomavirus (HPV); N64.4 Mastodynia; Z98.51 Tubal ligation status; Z79.899 Other long term (current) drug therapy | CPT/HCPCS: 87626; 88175 ==

== ENCOUNTER 2025-05-14 08:22 | Outpatient (AMB) | payer OTHER, SELFPAY ==
[2025-05-14 08:34] VITALS: BMI 33.1
--- NOTE | 2025-05-14 08:34 | A.OFFVIS_ITS ---
VS Expanded 05/14/25 08:34 Height 5 ft Weight 169 lb 8.568 oz BMI 33.1 Intake Visit Reasons: IFG/obesity class1 Allergies latex (LATEX) Allergy (Unknown, Verified 05/13/25 13:55) BREAK OUT - RASH Nutrition Presentation Details: Pt presents for MNT f/u for IFG, obesity Pt reports working on diet modifications, feeling well, motivated looking forward to increasing physical activity BS Monitoring Most Recent Diabetes Results: Creatinine, (0.5-1.4) 0.78 mg/dL 04/16/25 BUN, (9-16) 20 mg/dL H 04/16/25 Sodium, (135-145) 141 mmol/L 04/16/25 Potassium, (3.3-5.1) 4.2 mmol/L 04/16/25 Chloride, (96-108) 105 mmol/L 04/16/25 Carbon Dioxide, (22-29) 30 mmol/L H 04/16/25 Calcium, (8.4-10.2) 9.2 mg/dL 04/16/25 AST, (5-31) 38 U/L H 04/16/25 ALT, (0-31) 41 U/L H 04/16/25 Total Protein, (6.5-8.0) 7.3 g/dL 04/16/25 Albumin, (3.5-5.0) 4.5 g/dL 04/16/25 [facility] Medical History (Updated 05/13/25 @ 14:38 by Andra Keenan CNM) Breast pain, right Right foot injury Injury of right foot including toes Lichen sclerosus Osteoporosis LFT elevation Impaired fasting blood sugar Colonoscopy planned Surgical History H/O colonoscopy History of tubal ligation Family History Maternal Aunt Melanoma Paternal Aunt Breast CA Mother Osteoporosis Father Heart disease Diabetes mellitus Dementia CVD (cardiovascular disease) Maternal Grandmother Osteoporosis Maternal Grandfather No problems noted. Paternal Grandmother No problems noted. Paternal Grandfather Cancer Son No problems noted. Daughter No problems noted. Social History Household Members: None Housing: House Alcohol intake: current Alcohol intake frequency: holidays/special occasions only Patient Tobacco Use Status: Never used Tobacco e-Cigarette/Vaping Use: Never Used service: No Current occupational status: employed Current occupation: [employer] [place] Sexual orientation: Straight/Heterosexual Gender identity: Female Cognitive needs: No Hearing needs: No Vision needs: No Assessment & Plan Assessment & Plan (1) Obesity due to excess calories: Comment: with hx of IFG Code(s): E66.09 - Other obesity due to excess calories Category: Medical Qualifiers: Obesity classification: adult class 1 (BMI 30 - 34.9) Serious obesity comorbidity presence: with serious comorbidity Body mass index: BMI 31.0-31.9 Qualified Code(s): E66.811 - Obesity, class 1; E66.09 - Other obesity due to excess calories; Z68.31 - Body mass index [BMI] 31.0-31.9, adult Plan: Wt: 77 Kg ( 01/28 ), 79.5 (03/30), 77kg( 05/30) Est kcal needs as per MSJ: 1500 (40% carb, 30% protein/fat) Est fluid needs as per 25-30 ml/d: 2300 Est prot per day as per 1 g/kg bw: 80 Recommend fiber intake : 8-10 g per day and gradually increase to 25-28 g per day for women and 35-38 g for men or as tolerated Recommend sodium intake per day : less than 2300 mg Educated patient on: ( R = reviewed V = verbalizes understanding N/R = needs review N/A = not applicable * Food sources of carbohydrate, adequate serving sizes and its role in various health conditions: R * Differences between complex carbohydrates a simple carbohydrates, role of fiber in diet: R * Lean protein sources of foods: R * Differences between types of fats and role in diet (mono on saturated fat fatty acids, saturated fatty acids, trans fats): R basic * Food sources of sodium in salt and healthy modifications for heart health in kidney health: R basic low sodium * Vitamins and minerals: R V N/R * Healthy plate method concept: R V N/R * Physical activity: Benefits a precaution: R * Hypoglycemia protocol (rule of 15): R V N/R * Dietary prevention of Hyperglycemia: R * Patient Instructions: Include calcium sources of foods (1200 mg/d) Yogurt, milk, spinach,broccoli, nuts/seeds, sardines/salmon with bones Engage in physical activity - start with 10 min up to 30 minutes 3-4 times a week Coding Level of Care Code Nutr Indiv Subseq (40066) Diagnoses Class 1 obesity due to excess calories with serious comorbidity and body mass index (BMI) of 31.0 to 31.9 in adult E66.811; E66.09; Z68.31 Obesity classification: adult class 1 (BMI 30 - 34.9) Serious obesity comorbidity presence: with serious comorbidity Body mass index: BMI 31.0-31.9 Time Spent (min) 20
== END 2025-05-14 08:55 | disposition home or self-care (01) ==
LOC: HO.ENCR 08:22
PROVIDERS: PCP Internal Medicine; Visit Provider Dietitian, Registered
DX: E66.811 Obesity, class 1 (principal); E66.09 Other obesity due to excess calories; Z68.31 Body mass index [BMI] 31.0-31.9, adult

== ENCOUNTER → 2025-05-14 08:22 | Outpatient (BNVA) | payer OTHER, SELFPAY | PROVIDERS: PCP Internal Medicine; Visit Provider Dietitian, Registered | DX: E66.09 Other obesity due to excess calories (principal) | CPT/HCPCS: 97803 ==

== ENCOUNTER 2025-06-09 13:49 | Outpatient (REF) | payer OTHER, SELFPAY ==
--- NOTE | ~2025-06-09 | US_ITS ---
EXAMINATION(S): 1. MM DIAGNOSTIC DIGITAL BREAST TOMOSYNTHESIS, BILATERAL 2. Targeted ultrasound of the right breast CLINICAL INFORMATION: Right breast pain 7:00-12:00 COMPARISON: Comparison made to multiple prior, most recent September 24, 2024, and most remote May 22, 2009. TECHNIQUE: Digital breast tomosynthesis is performed in along with computer-aided detection (CAD). Synthesized 2D images are generated from the tomosynthesis. FINDINGS: BREAST COMPOSITION: There are scattered areas of fibroglandular density. RIGHT BREAST: No significant masses, suspicious calcifications or other abnormalities are seen. Targeted ultrasound of the right breast was performed at the location of the pain as indicated by the patient. The survey performed throughout the upper outer quadrant did not reveal suspicious sonographic findings. LEFT BREAST: No significant masses, suspicious calcifications or other abnormalities are seen. US/US Breast RT Limited Mamm Only IMPRESSION: RIGHT BREAST: Negative, no evidence of malignancy. Clinical follow-up is recommended. Otherwise, normal interval follow-up mammogram is recommended in 12 months. LEFT BREAST: Negative, no mammographic evidence of malignancy. Normal interval follow-up is recommended in 12 months. ASSESSMENT: BI-RADS: Category 1: Negative RECOMMENDATION: 1. Patient should be managed based on the clinical impression. 2. Otherwise, routine annual screening mammography. Results were provided to the patient at time of visit by the technologist. This patient's information was entered into a reminder system with a target due date for their next mammogram. Electronically signed by: Chet Rosales MD 06/09/2025 05:06 PM [facility]
--- OUTSIDE RECORDS SUMMARY | 2025-06-09 16:56 | XMS_ITS | Patient Health Record ---
Author Organization [facility] Address [address] [place] [address] Care Team Providers Care Audit Clerks Supervisor Name Role Phone Chance Turner MD Primary Care Provider Luisana Ibarra Unavailable [phone] Allergies Allergen (clinical drug ingredient) Drug/Non Drug [...] Treatment Pending Test Test Name Order Date [id number] TENDON SHEATH/LIGAMENT 0 11/09/2015 Insurance Providers Payer Name Payer Address Payer Phone Subscriber Number Group Number Insured Name Patient Relationship to Insured Coverage Start Date Coverage End Date [facility] [address] [place] [address] [phone] [id number] Cora Terryora Self - patient is the insured Medical (General) History Medical History History ICD Code Chicken pox Surgical History Surgery Date(Month/Year) tubal ligation 1989
== END 2025-06-09 13:50 | disposition home or self-care (01) ==
LOC: HO.MAMMO 13:49
PROVIDERS: PCP Internal Medicine; Visit Provider Internal Medicine
DX: N64.4 Mastodynia (principal)
CPT/HCPCS: 76642; 77062; 77066

== ENCOUNTER → 2025-06-09 14:30 | Outpatient (BNV) | payer OTHER, SELFPAY | PROVIDERS: PCP Internal Medicine; Visit Provider Radiology Body Imaging | DX: N64.4 Mastodynia (principal) | CPT/HCPCS: 76642; 77062; 77066 ==

== ENCOUNTER 2025-06-18 10:22 | Outpatient (AMB) | payer OTHER, SELFPAY ==
--- NOTE | 2025-06-18 10:48 | A.OFFVIS_ITS ---
Vital Signs 06/18/25 10:49 Height 5 ft Weight 169 lb BMI 33.0 BP 106/70 Blood Pressure Location Rt brachial Position Sitting Intake Visit Reasons: us breast follow up Intake Note: review breast u/s done on 06/09/25. Had no concerns Yarn Packer Required: No Information Interpreted: non-clinical & clinical Accompanied by: Self / Same As Patient Allergies latex (LATEX) Allergy (Unknown, Verified 06/18/25 10:50) BREAK OUT - RASH Medication List - Last Reconciled 06/18/25 by Adrianne Sy LPN alendronate (Fosamax) 70 mg PO QWEEK 90 days calcium carbonate (Antacid Calcium) 215 mg PO DAILY cholecalciferol (vitamin D3) 25 mcg PO DAILY ibuprofen 800 mg PO Q8H PRN rosuvastatin 5 mg PO DAILY 90 days Do you need a note to return to daycare/school/sports/work: No HPI Comments Details: Patient is here today for a follow up right breast ultrasound and mammogram. History of right breast pain onset in April, symptoms have not resolve or worsening.No injuries, biopsies, surgies to the area. No nipple discharge or erythema. She failed the area was really hot burning sensation in the summertime. [facility] Medical History Breast pain, right Right foot injury Injury of right foot including toes Lichen sclerosus Osteoporosis LFT elevation Impaired fasting blood sugar Colonoscopy planned Surgical History H/O colonoscopy History of tubal ligation Family History Maternal Aunt Melanoma Paternal Aunt Breast CA Mother Osteoporosis Father Heart disease Diabetes mellitus Dementia CVD (cardiovascular disease) Maternal Grandmother Osteoporosis Maternal Grandfather No problems noted. Paternal Grandmother No problems noted. Paternal Grandfather Cancer Son No problems noted. Daughter No problems noted. Social History Household Members: None Housing: House Alcohol intake: current Alcohol intake frequency: holidays/special occasions only Patient Tobacco Use Status: Never used Tobacco e-Cigarette/Vaping Use: Never Used service: No Current occupational status: employed Current occupation: [employer] [place] Sexual orientation: Straight/Heterosexual Gender identity: Female Cognitive needs: No Hearing needs: No Vision needs: No Female Reproductive History Menstrual Age of Menarche: 11 Age of menopause: 48 Total pregnancies: 2 Number of Living Children: 2 Date of last pap smear: 05/14/25 History of abnormal pap smear: No Date of Mammogram: 06/09/25 Review of Systems Const All systems reviewed & are unremarkable except as noted in HPI and below Reports no additional complaints Skin/Breast Reports system reviewed and no additional complaints, except as documented and Reports as per HPI Physical Exam Vital Signs: Last Vital Signs BP 106/70 06/18/25 10:49 BMI result Body Mass Index 33.0 Const General: cooperative, healthy appearing and no acute distress Chest Breast/axilla inspection: normal inspection of the breasts and normal inspection of the axillae Breast/axilla palpation: normal palpation of the breasts Skin General skin exam: no rashes or lesions noted Results Reviewed Results Reviewed: [facility] [address] [place] [address] Ultrasound Report Signed Patient: Maki Terry MR#: [id number] : 1965 Acct:[id number] Age/Sex: 60 / F ADM Date: 06/09/25 Loc: HO.MAMMO Attending Dr: Maycol Palacios MD Ordering Physician: Andra Keenan CNM Date of Service: 06/09/25 Procedure(s): US Breast RT Limited Mamm Only Accession Number(s): [id number] cc: Maycol Palacios MD; Andra Keenan CNM~ Reason for Exam: N64.4 - Mastodynia EXAMINATION(S): 1. MM DIAGNOSTIC DIGITAL BREAST TOMOSYNTHESIS, BILATERAL 2. Targeted ultrasound of the right breast CLINICAL INFORMATION: Right breast pain 7:00-12:00 COMPARISON: Comparison made to multiple prior, most recent September 24, 2024, and most remote May 22, 2009. TECHNIQUE: Digital breast tomosynthesis is performed in along with computer-aided detection (CAD). Synthesized 2D images are generated from the tomosynthesis. FINDINGS: BREAST COMPOSITION: There are scattered areas of fibroglandular density. RIGHT BREAST: No significant masses, suspicious calcifications or other abnormalities are seen. Targeted ultrasound of the right breast was performed at the location of the pain as indicated by the patient. The survey performed throughout the upper outer quadrant did not reveal suspicious sonographic findings. LEFT BREAST: No significant masses, suspicious calcifications or other abnormalities are seen. US/US Breast RT Limited Mamm Only IMPRESSION: RIGHT BREAST: Negative, no evidence of malignancy. Clinical follow-up is recommended. Otherwise, normal interval follow-up mammogram is recommended in 12 months. LEFT BREAST: Negative, no mammographic evidence of malignancy. Normal interval follow-up is recommended in 12 months. ASSESSMENT: BI-RADS: Category 1: Negative RECOMMENDATION: 1. Patient should be managed based on the clinical impression. 2. Otherwise, routine annual screening mammography. Results were provided to the patient at time of visit by the technologist. This patient's information was entered into a reminder system with a target due date for their next mammogram. Electronically signed by: Chet Rosales MD 06/09/2025 05:06 PM [facility] Dictated By: Chet Rosales MD Signed By: <Electronically signed by Chet Rosales MD in OV> 06/09/25 1706 DD/ 1415 TD/TT: 06/09/25 1428 Medicaid Plan Compliance Director: Assessment & Plan Assessment & Plan (1) Mastalgia: Code(s): N64.4 - Mastodynia Plan Discussed: Ultrasound and mammogram findings- IMPRESSION:This note is constructed using voice recognition software. While every effort has been made to ensure accuracy, human resources intern errors may have been included. RIGHT BREAST: Negative, no evidence of malignancy. Clinical follow-up is recommended. Otherwise, normal interval follow-up mammogram is recommended in 12 months. LEFT BREAST: Negative, no mammographic evidence of malignancy. Normal interval follow-up is recommended in 12 months. Advised to wear supportive well fitted bra. Report any increase in breast pain or other concerns if any changes of the breast or abnormal findings. The patient expressed understanding and agreement with the plan of care. All of her questions and concerns were addressed to the best of my ability. Annual exam scheduled May 2026 This note is constructed using voice recognition software. While every effort has been made to ensure accuracy, human resources intern errors may have been included. Coding Level of Care Code Est Pt Level 3 (15817) Diagnoses Mastalgia N64.4
[2025-06-18 10:49] VITALS: BP 106/70; BMI 33.0
--- OUTSIDE RECORDS SUMMARY | 2025-06-18 12:44 | XMS_ITS | Patient Health Record ---
Author Organization [facility] Address [address] [address] Care Team Providers Care Ballet Dancer Name Role Phone Chance Turner MD Primary Care Provider Luisana Ibarra Unavailable [phone] Allergies Allergen (clinical drug ingredient) Drug/Non Drug [...] Treatment Pending Test Test Name Order Date ,[id number] TENDON SHEATH/LIGAMENT 0 11/09/2015 Insurance Providers Payer Name Payer Address Payer Phone Subscriber Number Group Number Insured Name Patient Relationship to Insured Coverage Start Date Coverage End Date [facility] [address] [place] [address] [id number] MaraCora [id number] Self - patient is the insured Medical (General) History Medical History History ICD Code Chicken pox Surgical History Surgery Date(Month/Year) tubal ligation 1989
== END 2025-06-18 14:34 | disposition home or self-care (01) ==
LOC: HO.HWS 10:23
PROVIDERS: PCP Internal Medicine; Visit Provider Advanced Practice Midwife
DX: N64.4 Mastodynia (principal)
CPT/HCPCS: 99213